=== PATIENT | female | born 1970 | race Caucasian/White ===

== ENCOUNTER → 2016-09-26 | Outpatient (CLI) | payer OTHER ==
[~2016-09-26] MED LIST: ACET650T92 PO; ASPI-390 PO; IBUP1CAP9 PO; OMEP10CA2 PO; QUET400T2 PO; ROPI4TAB3 PO; SUMA100T16 PO; TEMA30CA4 PO; VENL150C56 PO
== END | disposition home or self-care (01) ==
LOC: C.PATHSPEC 17:41
PROVIDERS: ATTEND Obstetrics & Gynecology
DX: N85.00 Endometrial hyperplasia, unspecified (principal)

== ENCOUNTER → 2016-09-26 | Outpatient (CLI) | payer OTHER | END | disposition home or self-care (01) | LOC: C.PAPS 10:02 | PROVIDERS: ATTEND Obstetrics & Gynecology | DX: N93.9 Abnormal uterine and vaginal bleeding, unspecified (principal) ==

== ENCOUNTER → 2016-10-17 | Outpatient (CLI) | payer OTHER | END | disposition home or self-care (01) | LOC: C.CPL 16:54 | PROVIDERS: ATTEND Obstetrics & Gynecology | DX: Z01.818 Encounter for other preprocedural examination (principal) ==

== ENCOUNTER → 2016-10-19 | Day surgery (SDC) | payer OTHER ==
[2016-10-04 15:32] VITALS: Ht 170.2 cm; Wt 102.3 kg
[~2016-10-19] VITALS: Ht 170.2 cm; Wt 102.3 kg
[~2016-10-19] MED LIST changes: +ATROPINE SULFATE 0.1 MG/ML 5ML SYR IV PRN; +DEXAMETHASONE SOD INJ 4 MG/ML VIAL ONE; +EpHEDrine SULFATE INJ 50 MG/ML AMP IV PRN; +FENTANYL CITRATE INJ 50 MCG/1 ML 2 ML VIAL ONE; +FLUMAZENIL 0.1 MG/1 ML 10 ML VIAL IV PRN; +HYDROmorphone INJ 2 MG/ML SYR/VIAL IV PRN; +IBUPROFEN 600 MG TAB PO PRN; +KETOROLAC TROMETHAMINE 30 MG/ML VIAL IV. PRN; +KETOROLAC TROMETHAMINE 30 MG/ML VIAL ONE; +LABETALOL HCL IV 5 MG/ML 20ML IV PRN; +LACTATED RINGER'S 1000ML 1,000 ML IV SCH; +LIDOCAINE HCL 2% 2 ML VIAL (20MG/ML) ONE; +METOCLOPRAMIDE HCL INJ 5 MG/ML 2 ML VIAL IV PRN; +MIDAZOLAM HCL 1 MG/ML 2ML VIAL ONE; +NALOXONE HCL 0.4 MG/1 ML VIAL/CARP IV PRN; +ONDANSETRON INJ 2 MG/ML 2 ML VIAL IV PRN; +ONDANSETRON INJ 2 MG/ML 2 ML VIAL ONE; +OXYCODONE/ACETAMINOPHEN 5-325 TAB PO PRN; +PROMETHAZINE HCL INJ 12.5 MG in SODIUM CHLORIDE 0.9% 50ML 50 ML IV PRN; +PROPOFOL IV EMULSION 10 MG/ML 20 ML VIAL IV ONE; +SODIUM CHLORIDE 0.9% 1000ML 1,000 ML IV SCH
--- NOTE | 2016-10-19 11:33 | History & Physical Bridge - [place] ---
H&P Re-Evaluation Bridge Note: I have examined the patient, reviewed the History & Physical and in the interval since the performance of the History & Physical I have noted the following changes of clinical significance: No changes noted
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
--- NOTE | 2016-10-19 12:52 | Discharge Instructions-SurgCtr ---
Discharge Instructions Visit Reason for Visit: Abnormal Uterine Bleeding Discharge Discharge Diagnosis / Problem: abnormal uterine bleeding, polyps Discharge Goals Goal(s): Specific goals Activity Recommendations Activity Limitations: per Instructions/Follow-up section Anesthesia . Post Anesthesia Instructions: If you have had General Anesthesia or IV Sedation: * Do not drive today. * Resume driving when surgeon permits. * Do not make important decisions or sign legal documents today. * Call surgeon for: 1. Temperature elevations greater than 101 degrees F. 2. Uncontrollable pain. 3. Excessive bleeding. 4. Persistent nausea and vomiting. 5. Medication intolerance (nausea, vomiting or rash). * For nausea and vomiting use only clear liquids such as: tea, soda, bouillon until nausea subsides, then gradually increase diet as tolerated. * If you have any concerns or questions, call your surgeon's office. If physician is unavailable and it is an emergency, call 911 or go to the nearest emergency room. . Instructions / Follow-Up Instructions / Follow-Up ACTIVITY RECOMMENDATIONS: * Avoid tampons, douching, hot tubs, pools, and intercourse until bleeding has stopped. * May shower as usual. * No strenuous activity for 24-48 hours. After 24-48 hours, you may do anything you feel like doing (driving and sports are okay). SPECIAL CARE INSTRUCTIONS: Special Diet: * Mild nausea may occur in the immediate post-operative period. * Take clear liquids such as tea, cola or bouillon until all nausea has subsided; you may then resume your normal diet. Special Care: * Light bleeding and vaginal spotting can last from a few days to 3-4 weeks. Call your doctor if bleeding becomes heavier than the heaviest part of your period. * Check your temperature twice a day for one week. If it goes above 100.4 degrees Fahrenheit (38.0 Celsius), notify your doctor. * Call your doctor's office for an appointment for 6 weeks after your surgery. FOLLOW-UP VISIT: Call your doctor's office for an appointment for 6 weeks after your surgery. Diet Recommendations Home Diet: resume previous diet Procedures Procedures Performed: Dilatation And Curettage, Hysteroscopy,Cervical Polypectomy, Endometrial Ablation with Novasure Pending Studies Studies pending at discharge: no Medical Emergencies . Who to Call and When: Medical Emergencies: If at any time you feel your situation is an emergency, please call 911 immediately. . Non-Emergent Contact Non-Emergency issues call your: Primary Care Provider . . "Provider Documentation" section prepared by Merary Hodgson.
[2016-10-19] MEDS: FENTANYL CITRATE INJ 50 MCG/1 ML 2 ML VIAL IV PRN ×4 (13:10→13:32)
[2016-10-19 14:06] VITALS: TEMP 37
--- NOTE | 2016-10-19 14:29 | Anesthesia Progress Nt - [facility] ---
Anesthesia Post Op Note Date & Time Oct 19, 2016 at 14:29 Vital Signs Pain Intensity: 7.0 Vital Signs Past 12 Hours Date Time Temp Pulse Resp B/P Pulse Ox O2 Delivery O2 Flow Rate FiO2 10/19/16 14:06 37.0 96 16 148/93 95 Room Air 10/19/16 13:55 96 12 95 10/19/16 13:55 96 12 10/19/16 13:54 37.0 10/19/16 13:53 136/88 10/19/16 13:50 100 17 95 10/19/16 13:50 101 17 10/19/16 13:49 121/77 10/19/16 13:45 95 11 95 10/19/16 13:45 95 11 10/19/16 13:43 136/90 10/19/16 13:40 98 14 96 10/19/16 13:40 98 14 10/19/16 13:38 138/88 10/19/16 13:35 95 20 10/19/16 13:35 95 20 100 10/19/16 13:33 137/89 10/19/16 13:30 92 10 100 10/19/16 13:30 93 10 10/19/16 13:28 136/89 10/19/16 13:25 95 15 10/19/16 13:25 96 15 100 10/19/16 13:23 135/89 10/19/16 13:20 91 11 10/19/16 13:20 91 11 100 10/19/16 13:18 125/90 10/19/16 13:15 91 16 100 10/19/16 13:15 92 16 10/19/16 13:13 157/101 10/19/16 13:10 95 17 100 10/19/16 13:10 95 17 10/19/16 13:08 146/100 10/19/16 13:05 92 12 100 10/19/16 13:05 92 12 10/19/16 13:03 148/97 10/19/16 13:00 102 18 10/19/16 13:00 102 18 100 10/19/16 12:58 132/80 10/19/16 12:55 106 14 10/19/16 12:55 104 14 100 10/19/16 12:53 36.2 110 18 168/108 100 Diffusion Mask 8 10/19/16 11:27 37.1 101 20 146/90 97 Room Air Notes Mental Status: alert / awake / arousable, participated in evaluation Pt Amnestic to Procedure: Yes Nausea / Vomiting: adequately controlled Pain: adequately controlled Airway Patency, RR, SpO2: stable & adequate BP & HR: stable & adequate Hydration State: stable & adequate Anesthetic Complications: no major complications apparent
[2016-10-19 14:55] VITALS: BP 156/90; PULSE 95; O2SAT 95
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
== END | disposition home or self-care (01) ==
LOC: X.SURG 10:59
PROVIDERS: ATTEND Obstetrics & Gynecology
DX: N84.0 Polyp of corpus uteri (principal); N85.00 Endometrial hyperplasia, unspecified; N93.8 Other specified abnormal uterine and vaginal bleeding; G43.109 Migraine with aura, not intractable, without status migrainosus; F41.8 Other specified anxiety disorders; Z83.42 Family history of familial hypercholesterolemia; Z82.49 Family history of ischemic heart disease and other diseases of the circulatory system; F17.200 Nicotine dependence, unspecified, uncomplicated

== ENCOUNTER 2018-01-09 17:10 | Emergency (ER) | payer OTHER ==
[~2018-01-09] VITALS: Ht 170.2 cm; Wt 104.4 kg
[~2018-01-09 17:10] MED LIST changes: -ATROPINE SULFATE 0.1 MG/ML 5ML SYR IV PRN; -DEXAMETHASONE SOD INJ 4 MG/ML VIAL ONE; -EpHEDrine SULFATE INJ 50 MG/ML AMP IV PRN; -FENTANYL CITRATE INJ 50 MCG/1 ML 2 ML VIAL ONE; -FLUMAZENIL 0.1 MG/1 ML 10 ML VIAL IV PRN; -HYDROmorphone INJ 2 MG/ML SYR/VIAL IV PRN; -IBUPROFEN 600 MG TAB PO PRN; -KETOROLAC TROMETHAMINE 30 MG/ML VIAL IV. PRN; -KETOROLAC TROMETHAMINE 30 MG/ML VIAL ONE; -LABETALOL HCL IV 5 MG/ML 20ML IV PRN; -LACTATED RINGER'S 1000ML 1,000 ML IV SCH; -LIDOCAINE HCL 2% 2 ML VIAL (20MG/ML) ONE; -METOCLOPRAMIDE HCL INJ 5 MG/ML 2 ML VIAL IV PRN; -MIDAZOLAM HCL 1 MG/ML 2ML VIAL ONE; -NALOXONE HCL 0.4 MG/1 ML VIAL/CARP IV PRN; -ONDANSETRON INJ 2 MG/ML 2 ML VIAL IV PRN; -ONDANSETRON INJ 2 MG/ML 2 ML VIAL ONE; -OXYCODONE/ACETAMINOPHEN 5-325 TAB PO PRN; -PROMETHAZINE HCL INJ 12.5 MG in SODIUM CHLORIDE 0.9% 50ML 50 ML IV PRN; -PROPOFOL IV EMULSION 10 MG/ML 20 ML VIAL IV ONE; -ROPI4TAB3 PO; -SODIUM CHLORIDE 0.9% 1000ML 1,000 ML IV SCH; -SUMA100T16 PO; -TEMA30CA4 PO
[2018-01-09 17:14] VITALS: Ht 170.2 cm; Wt 104.4 kg
[2018-01-09] MEDS ORDERED: ONDANSETRON INJ 2 MG/ML 2 ML VIAL IV STA (17:25)
[2018-01-09] MEDS ORDERED: SODIUM CHLORIDE 0.9% 1000ML 2,000 ML IV STA (17:25)
[2018-01-09] MEDS ORDERED: OPTIRAY 320 IV PRN (17:30)
[2018-01-09] MEDS: MoRPHine SULFATE 4 MG/ML 1 ML CARP\\VIAL IV PRN ×2 (17:55→18:59)
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
[2018-01-09 18:04] LABS: BASO % 0.1 %; BASO ABS # 0.01 K/uL (0-0.2); EOS % 2.2 %; EOS ABS # 0.16 K/uL (0-0.5); HEMATOCRIT 36.7 % (37-47); HEMOGLOBIN 12.5 g/dL (12.0-16.0); IG# 0.02 K/uL (0.00-0.02); LYMPH % 28.5 %; LYMPH ABS # 2.08 K/uL (1.2-3.4); MEAN CELL VOLUME 86.6 fL (80-100); MEAN CORPUSCULAR HEMOGLOBIN 29.5 pg (25-34); MEAN CORPUSCULAR HGB CONC 34.1 g/dl (32-36); MEAN PLATELET VOLUME 9.2 fL (7.4-10.4); MONO % 5.2 %; MONO ABS # 0.38 K/uL (0.11-0.59); NEUT % 63.7 %; NEUT ABS # 4.64 K/uL (1.4-6.5); PLATELET COUNT 298 K/uL (130-400); RED CELL DISTRIBUTION WIDTH SD 47.8 fL (36.4-46.3); WHITE BLOOD COUNT 7.29 K/uL (4.8-10.8)
[2018-01-09 18:40] LABS: ALBUMIN 3.3 gm/dl (3.4-5.0); CALCIUM 8.5 mg/dl (8.5-10.1); CREATININE 0.89 mg/dl (0.60-1.20); POTASSIUM 3.1 mmol/L (3.5-5.1)
[2018-01-09 18:43] LABS: TOTAL PROTEIN 7.3 gm/dl (6.4-8.2)
[2018-01-09] MEDS ORDERED: MAGNESIUM SULFATE 1GM / D5W 1 GM BAG IV STA (19:00)
--- NOTE | 2018-01-09 19:17 | DIAGNOSTIC IMAGING REPORT ---
CT ABD/PELVIS IV CONTRAST ONLY CLINICAL HISTORY: Generalized abdominal pain. Possible colitis. COMPARISON STUDY: None. TECHNIQUE: Following the IV administration of 94 mL of Optiray-320, CT scan of the abdomen and pelvis was performed from the lung bases to the proximal femurs. Images are reviewed in the axial, sagittal, and coronal planes. IV contrast was administered without complication. A dose lowering technique was utilized adhering to the principles of ALARA. CT DOSE: 1211.59 mGy.cm FINDINGS: Lower chest: The heart is normal in size and configuration, without pericardial effusion. The lung bases and pleural spaces are clear. Liver: There is hepatic steatosis. No focal hepatic masses are visualized. Gallbladder: Mildly distended. No calculi are visualized. Spleen: Borderline enlarged measuring 12.6 cm Pancreas: Unremarkable. Adrenal glands: Unremarkable. Kidneys: There is incomplete right renal rotation. No solid renal masses are visualized. There is no hydronephrosis. Bowel: There are no transition zones indicate bowel obstruction. There is no evidence of acute diverticulitis. There is fluid within the ascending transverse and descending colon. This is nonspecific but could be an indication of an enteritis. There is no evidence of acute appendicitis. There is a tiny appendicolith present. Peritoneum: There is no intraperitoneal free air or abdominal ascites. Vasculature: The abdominal aorta is normal in course and caliber. Adenopathy: None. Pelvic viscera: There is a 3 cm right ovarian cyst/follicle. Skeletal structures: No destructive osseous lesions are seen. IMPRESSION: 1. No evidence of bowel obstruction. No evidence of free air 2. No evidence of acute diverticulitis. No evidence of acute appendicitis 3. Prominent fluid within the colon. This is a nonspecific finding but could indicate an enteritis. 4. Hepatic steatosis and borderline splenomegaly 5. 3 cm right ovarian cyst/follicle Electronically signed by: Bartolo Velásquez M.D. 01/09/2018 7:16 PM Dictated Date/Time: 01/09/2018 7:10 PM
[2018-01-09 21:34] VITALS: BP 98/66; PULSE 95; TEMP 37.1; O2SAT 95
[2018-01-10] MEDS ORDERED: TEMA30CA4 PO (11:10)
[2018-01-10] MEDS ORDERED: ROPI4TAB3 PO (11:10)
[2018-01-10] MEDS ORDERED: SUMA100T16 PO (14:40)
[2018-01-10] MEDS ORDERED: OMEP40CA41 PO (18:28)
[2018-01-10] MEDS ORDERED: METH-307 PO (18:28)
[2018-01-10] MEDS ORDERED: ALPR-411 PO (18:28)
[2018-01-10] MEDS ORDERED: DICL50TA3 PO (18:28)
[2018-01-10] MEDS ORDERED: GABA-1220 PO (18:28)
[2018-01-10] MEDS ORDERED: QUET1TAB13 PO (18:28)
[2018-01-10] MEDS ORDERED: DULO60CA44 PO (18:28)
== END 2018-01-09 21:35 | disposition home or self-care (01) ==
LOC: C.EDB 17:12 → C.EDC 21:35
DX: E86.0 Dehydration (principal); R19.7 Diarrhea, unspecified; E83.42 Hypomagnesemia; F17.210 Nicotine dependence, cigarettes, uncomplicated; Z79.899 Other long term (current) drug therapy; Z91.048 Other nonmedicinal substance allergy status

== ENCOUNTER 2018-01-10 18:05 | Inpatient (IN) | payer OTHER ==
[~2018-01-10] VITALS: Ht 170.2 cm; Wt 106.3 kg
[~2018-01-10 18:05] MED LIST changes: -ACET650T92 PO; -ASPI-390 PO; -IBUP1CAP9 PO; -OMEP10CA2 PO; -QUET400T2 PO; +ROPI4TAB3 PO; +SUMA100T16 PO; +TEMA30CA4 PO; -VENL150C56 PO
[2018-01-10] MEDS ORDERED: SODIUM CHLORIDE 0.9% 1000ML 1,000 ML IV STA ×2 (18:26→18:47)
[2018-01-10] MEDS ORDERED: OMEP40CA41 PO (18:28)
[2018-01-10] MEDS ORDERED: METH-307 PO (18:28)
[2018-01-10] MEDS ORDERED: DICL50TA3 PO (18:28)
[2018-01-10] MEDS ORDERED: DULO60CA44 PO (18:28)
[2018-01-10] MEDS ORDERED: ALPR-411 PO (18:28)
[2018-01-10] MEDS ORDERED: QUET1TAB13 PO (18:28)
[2018-01-10] MEDS ORDERED: GABA-1220 PO (18:28)
[2018-01-10] MEDS ORDERED: ONDANSETRON INJ 2 MG/ML 2 ML VIAL IV STA (18:48)
[2018-01-10] MEDS ORDERED: OPTIRAY 320 IV PRN (19:15)
--- NOTE | 2018-01-10 19:20 | EMERGENCY ROOM VISIT NOTE ---
History Report prepared by Sandi: Brandon Perez Under the Supervision of: Dr. Artemio Franco M.D. First contact with patient: 18:25 Chief Complaint: DIARRHEA Stated Complaint: DIARRHEA,NAUSEA Nursing Triage Summary: was seen last night with diarrhea for the last two weeks. blood in stool since 1500 today/ nasueated History of Present Illness The patient is a 47 year old female who presents to the Emergency Room with complaints of worsening blood in her stool beginning yesterday. The patient states she was evaluated in the ED yesterday for similar symptoms. She notes she had intermittent blood in her diarrhea yesterday. She reports since then there has been more blood in her diarrhea, and she has been incontinent of her stool twice. The patient notes she has had around 15 bowel movements today, and her last bowel movement was 1.5 hours ago. She states her abdominal pain is around a 7/10 in severity. The patient reports she is also nauseous, weak, and dizzy. She notes she also has not been urinating as much as normal, and she thinks this is because she is dehydrated. The patient states she is afraid to eat or drink anything because it typically worsens her symptoms. Pt denies LOC, headache, fevers, chills, diaphoresis, visual changes, neck pain, chest pain, breathing difficulties, vomiting, back pain, melena, hematochezia, numbness, lymphadenopathy, rash, or other complaints. Review of EMR states the patient's C-Diff test was negative, and her stool culture is pending. Source of History: patient Onset: yesterday Quality: other (blood in stool) Timing: worsening Modifying Factors (Worsening): eating, drinking Associated Symptoms: + nausea, + abdominal pain, + weakness Note: Associated symptoms: incontinent of stool, dizziness, decreased urine output Review of Systems See HPI for pertinent positives and negatives. A total of ten systems were reviewed and were otherwise negative. Past Medical & Surgical Medical Problems: (1) No Known Active Medical Problems Family History Patient reports no known family medical history. Social History Smoking Status: Current Every Day Smoker Marital Status: Housing Status: lives with family Occupation Status: unemployed Current/Historical Medications Scheduled Alprazolam (Xanax), 0.5 MG PO QID Diclofenac (Voltaren), 50 MG PO TID Duloxetine Hcl (Cymbalta), 60 MG PO BID Gabapentin (Neurontin), 400 MG PO QID Methocarbamol (Robaxin), 750 MG PO HS Omeprazole (Prilosec), 40 MG PO DAILY Quetiapine Fumarate (Seroquel), 400 MG PO HS Ropinirole (Requip), 4 MG PO BID Temazepam (Restoril), 30 MG PO HS Scheduled PRN Sumatriptan Succinate (Imitrex), 100 MG PO DAILY PRN for Migraine Allergies Coded Allergies: NO KNOWN DRUG ALLERGIES (Verified Allergy, Unknown, ., 01/09/18) Adhesives (Verified Adverse Reaction, Mild, "Paper tape" -- rash, 01/09/18) Physical Exam Vital Signs Date Time Temp Pulse Resp B/P (MAP) Pulse Ox O2 Delivery O2 Flow Rate FiO2 01/10/18 21:39 99 01/10/18 21:03 95 20 123/90 99 Room Air 01/10/18 19:55 104 18 124/87 95 Room Air 01/10/18 18:19 36.7 116 20 136/85 97 Room Air Physical Exam GENERAL: Awake, alert, uncomfortable-appearing, in no distress HENT: Normocephalic, atraumatic. Oropharynx unremarkable. EYES: Normal conjunctiva. Sclera non-icteric. NECK: Supple. No nuchal rigidity. FROM. No masses. RESPIRATORY: Clear to auscultation. No wheezes. No rales. Normal respiratory effort. CARDIAC: Tachycardic rate. Normal rhythm. No murmurs. No rubs. Extremities warm and well perfused. Pulses equal. No JVD. GI: Soft, non-distended. Generally diffusely tenderness to the abdomen upon palpation, especially in the upper epigastrium and left side of the abdomen. No rebound or guarding. No masses. RECTAL: Deferred. MUSCULOSKELETAL: Atraumatic. Chest examination reveals no tenderness. The back is symmetrical on inspection without obvious abnormality. There is no CVA tenderness to palpation. No joint edema. LOWER EXTREMITIES: Calves are equal size bilaterally and non-tender. No edema. No discoloration. NEURO: Normal sensorium. No sensory or motor deficits noted. SKIN: No rash or jaundice noted. Medical Decision & Procedures ER Provider Diagnostic Interpretation: Radiology results as stated below per my review and radiologist interpretation: ABD/PELVIS IV CONTRAST ONLY CLINICAL HISTORY: 47 years-old Female presenting with diffuse abd pain, bloody stool, diarrhea. TECHNIQUE: Multidetector CT of the abdomen and pelvis was performed after the administration of intravenous contrast. IV contrast: 94 mL of Optiray 320. A dose lowering technique was used consistent with the principles of ALARA (as low as reasonably achievable). COMPARISON: 01/09/2018. CT DOSE (mGy.cm): The estimated cumulative dose is 1418.33 mGy.cm. FINDINGS: Ship Erector topogram: Unremarkable. Lung bases: Minimal basilar opacities, likely atelectasis. Mosaic attenuation could indicate small airways disease. Mild bronchial wall thickening. Normal heart size. No pericardial or pleural effusion. Liver: Normal morphology though the liver is enlarged, measuring over 24 cm in maximal sagittal dimension. Density suggestive of hepatic steatosis. No focal lesion. Patent hepatic vasculature. Biliary: No intrahepatic or extrahepatic biliary ductal dilatation. Normal gallbladder. Pancreas: Normal. Spleen: Mildly enlarged measuring 13.2 cm in maximal sagittal dimension. Adrenal glands: Normal. 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 No nephrolithiasis. No hydronephrosis. Ureters normal. Bladder: Normal. Pelvic organs: Uterus and ovaries normal. Dominant follicle noted in the right ovary. Bowel: Mild wall thickening of the cecum, ascending and transverse colon, nonspecific and can be seen in the setting of multiple etiologies chronic inflammation, obesity, and chronic steroids. There is suggestion of intramural fat deposition throughout this region. No pericolonic fat infiltration. The appendix is normal. No bowel obstruction. Peritoneal cavity: No free fluid or intraperitoneal gas. Lymph nodes: No enlarged lymph nodes in the abdomen or pelvis. Vasculature: Atherosclerosis of the normal caliber abdominal aorta. IVC patent. Abdominal wall: Nonspecific subcutaneous edema in the lumbar region Musculoskeletal: Normal. IMPRESSION: 1. No acute intra-abdominal pathology. 2. Diffuse wall thickening of the cecum through the transverse colon with intramural fat deposition may relate to chronic inflammation, obesity, chronic steroid. No convincing evidence of acute colitis. 3. Hepatomegaly and hepatic steatosis. Correlate with liver function tests to exclude steatohepatitis as a cause for abdominal pain. 4. Mild splenomegaly. This could suggest developing hypertension. 5. Dominant follicle in the right ovary. 6. Suggestion of air trapping with reactive airways disease versus bronchitis/bronchiolitis at the lung bases. Electronically signed by: Dennis Serrano M.D. 01/10/2018 8:41 PM Dictated Date/Time: 01/10/2018 8:33 PM Laboratory Results 01/10/18 19:06 Red Blood Count 3.83, Mean Corpuscular Volume 86.7, Mean Corpuscular Hemoglobin 28.2, Mean Corpuscular Hemoglobin Concent 32.5, Mean Platelet Volume 9.1, Neutrophils (%) (Auto) 58.3, Lymphocytes (%) (Auto) 33.7, Monocytes (%) (Auto) 5.8, Eosinophils (%) (Auto) 1.8, Basophils (%) (Auto) 0.2, Neutrophils # (Auto) 3.53, Lymphocytes # (Auto) 2.04, Monocytes # (Auto) 0.35, Eosinophils # (Auto) 0.11, Basophils # (Auto) 0.01 01/10/18 19:06 Test 01/10/18 19:06 01/10/18 20:17 White Blood Count 6.05 K/uL (4.8-10.8) Red Blood Count 3.83 M/uL (4.2-5.4) Hemoglobin 10.8 g/dL (12.0-16.0) Hematocrit 33.2 % (37-47) Mean Corpuscular Volume 86.7 fL (80-100) Mean Corpuscular Hemoglobin 28.2 pg (25-34) Mean Corpuscular Hemoglobin Concent 32.5 g/dl (32-36) Platelet Count 277 K/uL (130-400) Mean Platelet Volume 9.1 fL (7.4-10.4) Neutrophils (%) (Auto) 58.3 % Lymphocytes (%) (Auto) 33.7 % Monocytes (%) (Auto) 5.8 % Eosinophils (%) (Auto) 1.8 % Basophils (%) (Auto) 0.2 % Neutrophils # (Auto) 3.53 K/uL (1.4-6.5) Lymphocytes # (Auto) 2.04 K/uL (1.2-3.4) Monocytes # (Auto) 0.35 K/uL (0.11-0.59) Eosinophils # (Auto) 0.11 K/uL (0-0.5) Basophils # (Auto) 0.01 K/uL (0-0.2) RDW Standard Deviation 48.0 fL (36.4-46.3) RDW Coefficient of Variation 15.1 % (11.5-14.5) Immature Granulocyte % (Auto) 0.2 % Immature Granulocyte # (Auto) 0.01 K/uL (0.00-0.02) Erythrocyte Sedimentation Rate 41 mm/hr (0-21) Prothrombin Time 10.3 SECONDS (9.0-12.0) Prothromb Time International Ratio 1.0 (0.9-1.1) Activated Partial Thromboplast Time 25.7 SECONDS (21.0-31.0) Partial Thromboplastin Ratio 1.0 Anion Gap 9.0 mmol/L (3-11) Est Creatinine Clear Calc Drug Dose 100.5 ml/min Estimated GFR () 91.3 Estimated GFR (Non- 78.8 BUN/Creatinine Ratio 5.9 (10-20) Calcium Level 8.6 mg/dl (8.5-10.1) Magnesium Level 1.7 mg/dl (1.8-2.4) Total Bilirubin 0.2 mg/dl (0.2-1) Direct Bilirubin < 0.1 mg/dl (0-0.2) Aspartate Amino Transf (AST/SGOT) 21 U/L (15-37) Alanine Aminotransferase (ALT/SGPT) 21 U/L (12-78) Alkaline Phosphatase 111 U/L (45-117) C-Reactive Protein 4.60 mg/dl (0-0.29) Total Protein 6.4 gm/dl (6.4-8.2) Albumin 2.8 gm/dl (3.4-5.0) Lipase 208 U/L (73-393) Human Chorionic Gonadotropin, Qual NEG (NEG) Urine Color YELLOW Urine Appearance CLEAR (CLEAR) Urine pH 6.0 (4.5-7.5) Urine Specific [place] 1.011 (1.000-1.030) Urine Protein NEG (NEG) Urine Glucose (UA) TRACE (NEG) Urine Ketones NEG (NEG) Urine Occult Blood NEG (NEG) Urine Nitrite NEG (NEG) Urine Bilirubin NEG (NEG) Urine Urobilinogen NEG (NEG) Urine Leukocyte Esterase NEG (NEG) Laboratory results reviewed by me Medications Administered Medications (Trade) Dose Ordered Sig/[place] Route Start Time Stop Time Status Last Admin Dose Admin Sodium Chloride 1,000 ml @ 125 mls/hr Q8H STAT IV 01/10/18 18:26 01/11/18 02:25 01/10/18 20:59 125 MLS/HR Sodium Chloride 1,000 ml @ 999 mls/hr Q1H1M STAT IV 01/10/18 18:47 01/10/18 19:47 DC 01/10/18 19:10 999 MLS/HR Hydromorphone HCl (Dilaudid Inj) 0.5 mg Q15M PRN IV 01/10/18 19:00 01/24/18 18:59 01/10/18 20:59 0.5 MG Ondansetron HCl (Zofran Inj) 4 mg NOW STAT IV 01/10/18 18:48 01/10/18 18:52 DC 01/10/18 19:26 4 MG ED Course 1826: Ordered Sodium Chloride 1000 ml @ 125 mls/hr IV 1837: The patient was evaluated in room A04B. A complete history and physical exam was performed. 1847: Ordered Sodium Chloride 1000 ml @ 999 mls/hr IV 1848: Ordered Ondansetron HCl 4mg IV 1900: Ordered Hydromorphone HCl 0.5mg IV 2023: I reevaluated the patient and updated her of her current test results. 2103: Ordered Potassium Chloride 20meq PO 2106: I reevaluated the patient and updated her of her new test results. 2111: I discussed the patient's case with Dr. West, GI. He states the patient should be given Cipro and Flagyl, and she should have a hospitalist evaluation. He reports the patient will have a colonoscopy done tomorrow for diagnosis purposes. 2123: Ordered Metronidazole 500mg IV, Ciprofloxacin/Dextrose 400mg IV 2130: Upon reexamination, the patient was resting and asking to smoke. I discussed the test results and treatment plan with her. The patient will be evaluated for further management. 2133:I discussed the patient's case with Dr. Gilbert, [facility] Hospitalist. The patient will be evaluated for further management and care. 2134: Ordered Nicotine Polacrilex 1 piece MT, Nicotine 1 patch TD Medical Decision Prior records/ancillary studies reviewed. Triage Nursing notes reviewed and agree them. The patient's history was concerning for nausea, diarrhea, and abdominal pain. Differential diagnosis: Etiologies such as gastroenteritis, food borne illness, infections, appendicitis , diverticulitis, inflammatory bowel disease, GI bleed, biliary pathology, as well as others were entertained. Physical examination findings: As above. ER treatment provided: IV hydration IV Dilaudid IV Zofran On reassessment the patient felt better. Patient was tolerating p.o. intake. IV Cipro and IV Flagyl after consultation with gastroenterology Diagnostics interpretation by me: The labs revealed no leukocytosis on CBC. She had a mild anemia which was slightly worse than prior. Her chemistry panel was unremarkable except for mild hypokalemia. Patient is not . Imaging studies: CAT scan as above The patient was hydrated. Her symptoms are treated with Dilaudid and Zofran. She required 2 doses of Dilaudid. She had a CT scan which suggested more chronic inflammation and acute inflammation. Her stool was negative for C. difficile but her culture was still pending. GI consultation was necessary. Consultation: A consultation was placed with gastroenterology, Dr. West. Given the patient 's worsening condition with the bloody stool, low hemoglobin, and unknown diagnosis he felt having her stay in the hospital, prep for colonoscopy, procedure tomorrow, and IV treatment would be most appropriate. The patient was in agreement. A consultation was placed with the hospitalist. The case was discussed and diagnostics were reviewed. The patient was evaluated in the ER for further treatment. Medication Reconcilliation Current Medication List: was personally reviewed by me Blood Pressure Screening Patient's blood pressure: Normal blood pressure Blood pressure disposition: Did not require urgent referral Consults Time Called: 2109 Consulting Physician: GHAZAL Cooper Returned Call: 2111 I discussed the patient's case with GHAZAL Cooper. He states the patient should be given Cipro and Flagyl, and she should have a hospitalist evaluation. He reports the patient will have a colonoscopy done tomorrow for diagnosis purposes. Additional Consults: Time Called: 2131 Consulted Physician: Dr. Gilbert [facility] Hospitalist Returned Call: 2133 Additional Comments: I discussed the patient's case with Dr. Gilbert, [facility] Hospitalist. The patient will be evaluated for further management and care. Impression Primary Impression: Bloody diarrhea Additional Impressions: Generalized abdominal pain Hypokalemia Scribe Attestation The scribe's documentation has been prepared under my direction and personally reviewed by me in its entirety. I confirm that the note above accurately reflects all work, treatment, procedures, and medical decision making performed by me. Departure Information Referrals Christiano Grijalva M.D. (PCP) Patient Instructions [facility] Problem Qualifiers
[2018-01-10] MEDS: HYDROmorphone INJ 0.5 MG/0.5 ML SYR IV PRN ×3 (19:26→23:42)
[2018-01-10 19:38] LABS: BASO % 0.2 %; BASO ABS # 0.01 K/uL (0-0.2); EOS % 1.8 %; EOS ABS # 0.11 K/uL (0-0.5); HEMATOCRIT 33.2 % (37-47); HEMOGLOBIN 10.8 g/dL (12.0-16.0); IG# 0.01 K/uL (0.00-0.02); LYMPH % 33.7 %; LYMPH ABS # 2.04 K/uL (1.2-3.4); MEAN CELL VOLUME 86.7 fL (80-100); MEAN CORPUSCULAR HEMOGLOBIN 28.2 pg (25-34); MEAN CORPUSCULAR HGB CONC 32.5 g/dl (32-36); MEAN PLATELET VOLUME 9.1 fL (7.4-10.4); MONO % 5.8 %; MONO ABS # 0.35 K/uL (0.11-0.59); NEUT % 58.3 %; NEUT ABS # 3.53 K/uL (1.4-6.5); PLATELET COUNT 277 K/uL (130-400); RED CELL DISTRIBUTION WIDTH CV 15.1 % (11.5-14.5); WHITE BLOOD COUNT 6.05 K/uL (4.8-10.8)
[2018-01-10 19:47] LABS: PTT PATIENT 25.7 SECONDS (21.0-31.0)
[2018-01-10 19:59] LABS: ALBUMIN 2.8 gm/dl (3.4-5.0); ALT/SGPT 21 U/L (12-78); AST/SGOT 21 U/L (15-37); BLOOD UREA NITROGEN 5 mg/dl (7-18); CALCIUM 8.6 mg/dl (8.5-10.1); CARBON DIOXIDE 23 mmol/L (21-32); CREATININE 0.88 mg/dl (0.60-1.20); GLUCOSE 235 mg/dl (70-99); LIPASE 208 U/L (73-393); POTASSIUM 3.2 mmol/L (3.5-5.1); SODIUM 137 mmol/L (136-145)
[2018-01-10 20:02] LABS: ALKALINE PHOSPHATASE 111 U/L (45-117); TOTAL PROTEIN 6.4 gm/dl (6.4-8.2)
--- NOTE | 2018-01-10 20:42 | DIAGNOSTIC IMAGING REPORT ---
ABD/PELVIS IV CONTRAST ONLY CLINICAL HISTORY: 47 years-old Female presenting with diffuse abd pain, bloody stool, diarrhea. TECHNIQUE: Multidetector CT of the abdomen and pelvis was performed after the administration of intravenous contrast. IV contrast: 94 mL of Optiray 320. A dose lowering technique was used consistent with the principles of ALARA (as low as reasonably achievable). COMPARISON: 01/09/2018. CT DOSE (mGy.cm): The estimated cumulative dose is 1418.33 mGy.cm. FINDINGS: Epic Manager topogram: Unremarkable. Lung bases: Minimal basilar opacities, likely atelectasis. Mosaic attenuation could indicate small airways disease. Mild bronchial wall thickening. Normal heart size. No pericardial or pleural effusion. Liver: Normal morphology though the liver is enlarged, measuring over 24 cm in maximal sagittal dimension. Density suggestive of hepatic steatosis. No focal lesion. Patent hepatic vasculature. Biliary: No intrahepatic or extrahepatic biliary ductal dilatation. Normal gallbladder. Pancreas: Normal. Spleen: Mildly enlarged measuring 13.2 cm in maximal sagittal dimension. Adrenal glands: Normal. 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 No nephrolithiasis. No hydronephrosis. Ureters normal. Bladder: Normal. Pelvic organs: Uterus and ovaries normal. Dominant follicle noted in the right ovary. Bowel: Mild wall thickening of the cecum, ascending and transverse colon, nonspecific and can be seen in the setting of multiple etiologies chronic inflammation, obesity, and chronic steroids. There is suggestion of intramural fat deposition throughout this region. No pericolonic fat infiltration. The appendix is normal. No bowel obstruction. Peritoneal cavity: No free fluid or intraperitoneal gas. Lymph nodes: No enlarged lymph nodes in the abdomen or pelvis. Vasculature: Atherosclerosis of the normal caliber abdominal aorta. IVC patent. Abdominal wall: Nonspecific subcutaneous edema in the lumbar region Musculoskeletal: Normal. IMPRESSION: 1. No acute intra-abdominal pathology. 2. Diffuse wall thickening of the cecum through the transverse colon with intramural fat deposition may relate to chronic inflammation, obesity, chronic steroid. No convincing evidence of acute colitis. 3. Hepatomegaly and hepatic steatosis. Correlate with liver function tests to exclude steatohepatitis as a cause for abdominal pain. 4. Mild splenomegaly. This could suggest developing hypertension. 5. Dominant follicle in the right ovary. 6. Suggestion of air trapping with reactive airways disease versus bronchitis/bronchiolitis at the lung bases. Electronically signed by: Dennis Serrano M.D. 01/10/2018 8:41 PM Dictated Date/Time: 01/10/2018 8:33 PM
[2018-01-10] MEDS ORDERED: POTASSIUM CHLORIDE 10 MEQ TABCR PO STA (21:04)
[2018-01-10] MEDS ORDERED: METRONIDAZOLE 500MG / 100ML NSS IV STA (21:24)
[2018-01-10] MEDS ORDERED: CIPROFLOXACIN 400MG / 200ML D5W IV STA (21:24)
[2018-01-10] MEDS ORDERED: NICOTINE 14 MG/24 HR TDSY TD STA (21:35)
[2018-01-10] MEDS ORDERED: NICOTINE POLACRILEX 2 MG GUM MT STA (21:35)
[2018-01-10] MEDS ORDERED: ACETAMINOPHEN 325 MG TAB PO PRN (23:00)
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
[2018-01-10] MEDS ORDERED: GLUCOSE 10 TABS/TUBE PO PRN (23:30)
[2018-01-10] MEDS ORDERED: CARBOHYDRATES FOR HYPOGLYCEMIA PO PRN (23:30)
[2018-01-10] MEDS ORDERED: DEXTROSE 50% 50 ML SYR IV PRN (23:30)
[2018-01-10] MEDS ORDERED: GLUCAGON FOR INJ 1 MG VIAL SQ PRN (23:30)
[2018-01-10] MEDS ORDERED: GLUCOSE 40% GEL 15 GM TUBE PO PRN (23:30)
[2018-01-10] MEDS: ONDANSETRON INJ 2 MG/ML 2 ML VIAL IV PRN (23:42)
[2018-01-10 23:50] VITALS: BP 152/90; PULSE 106; TEMP 36.9; O2SAT 93
[2018-01-11] VITALS: BMI 36.7
[2018-01-11] MEDS: HYDROmorphone INJ 0.5 MG/0.5 ML SYR IV PRN (00:22)
[2018-01-11] MEDS ORDERED: DULOXETINE HCL 60 MG CAP PO ONE (00:45)
[2018-01-11] MEDS ORDERED: ROPINIROLE HCL 1 MG TAB PO ONE (00:45)
[2018-01-11] MEDS ORDERED: GABAPENTIN 400 MG CAP PO ONE (00:45)
[2018-01-11] MEDS ORDERED: ALPRAZOLAM 0.5 MG TAB PO ONE (00:45)
[2018-01-11] MEDS ORDERED: METHOCARBAMOL 750 MG TAB PO ONE (00:45)
[2018-01-11] MEDS ORDERED: INSULIN ASPART 100 UNITS/ML 3 ML PEN SC SCH ×2 (00:45→06:00)
[2018-01-11] MEDS ORDERED: QUETIAPINE FUMARATE 200 MG TAB PO ONE (00:45)
[2018-01-11] MEDS: TEMAZEPAM 15 MG CAP PO SCH ×2 (00:55→21:09)
[2018-01-11] MEDS: NSS + 20MEQ KCL 1000ML 1,000 ML IV SCH ×2 (00:58→17:53)
[2018-01-11] MEDS: MAGNESIUM SULFATE 1GM / D5W 100 ML IV SCH ×2 (00:58→02:22)
[2018-01-11] MEDS ORDERED: NURSING VERBAL MED ORDER ONE ×6 (01:15→22:00)
[2018-01-11] MEDS: INSULIN GLARGINE SOLOSTAR 100 UNITS/ML 3 ML PEN SC SCH ×3 (01:24→21:15)
[2018-01-11] MEDS: METRONIDAZOLE / NSS 500 MG in PREMIXED NSS 100 ML IV SCH ×3 (05:35→21:37)
[2018-01-11 05:44] LABS: BASO % 0.2 %; BASO ABS # 0.01 K/uL (0-0.2); EOS % 2.8 %; EOS ABS # 0.15 K/uL (0-0.5); HEMATOCRIT 31.2 % (37-47); HEMOGLOBIN 10.2 g/dL (12.0-16.0); IG# 0.01 K/uL (0.00-0.02); LYMPH % 39.1 %; LYMPH ABS # 2.11 K/uL (1.2-3.4); MEAN CELL VOLUME 87.4 fL (80-100); MEAN CORPUSCULAR HEMOGLOBIN 28.6 pg (25-34); MEAN CORPUSCULAR HGB CONC 32.7 g/dl (32-36); MEAN PLATELET VOLUME 8.8 fL (7.4-10.4); MONO % 7.2 %; MONO ABS # 0.39 K/uL (0.11-0.59); NEUT % 50.5 %; NEUT ABS # 2.72 K/uL (1.4-6.5); PLATELET COUNT 261 K/uL (130-400); RED CELL DISTRIBUTION WIDTH CV 15.2 % (11.5-14.5); RED CELL DISTRIBUTION WIDTH SD 48.8 fL (36.4-46.3); WHITE BLOOD COUNT 5.39 K/uL (4.8-10.8)
[2018-01-11 06:16] LABS: CALCIUM 8.1 mg/dl (8.5-10.1); CREATININE 0.62 mg/dl (0.60-1.20); POTASSIUM 3.3 mmol/L (3.5-5.1)
[2018-01-11 07:32] VITALS: BP 129/75; PULSE 105; TEMP 36.9; O2SAT 91
[2018-01-11] MEDS ORDERED: POTASSIUM CHLR 20 MEQ / WTR 20 MEQ in PREMIXED WATER 100 ML IV STA (08:18)
[2018-01-11] MEDS: ONDANSETRON INJ 2 MG/ML 2 ML VIAL IV PRN ×2 (08:56→15:47)
[2018-01-11] MEDS ORDERED: SUMATRIPTAN SUCC TAB 100 MG TAB PO ONE (09:15)
[2018-01-11] MEDS: POTASSIUM CHLR 10 MEQ / WTR 100 ML IV SCH ×2 (09:46→12:08)
[2018-01-11] MEDS: DULOXETINE HCL 60 MG CAP PO SCH ×2 (09:58→21:09)
[2018-01-11] MEDS: GABAPENTIN 400 MG CAP PO SCH ×4 (09:58→21:09)
[2018-01-11] MEDS: ALPRAZOLAM 0.5 MG TAB PO SCH ×4 (09:58→21:09)
[2018-01-11] MEDS: PANTOprazole SOD 40 MG TAB PO SCH (09:59)
[2018-01-11] MEDS: ROPINIROLE HCL 1 MG TAB PO SCH ×2 (10:05→21:00)
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
[2018-01-11] MEDS: CIPROFLOXACIN / D5W 400 MG in PREMIXED IN D5W 200 ML IV SCH ×2 (10:46→21:37)
[2018-01-11] MEDS: MoRPHine SULFATE 4 MG/ML 1 ML CARP\\VIAL IV PRN ×2 (11:08→15:48)
--- NOTE | 2018-01-11 12:07 | Hospitalist Progress Note ---
Hospitalist Progress Note Date of Service January 11, 2018. Subjective Pt evaluation today including: conversation w/ patient, physical exam, lab review, review of studies Voiding: no voiding problems Patient resting in bed. Diffuse abdominal pain. Diarrhea continues- noted BRBPR yesterday, none today. Denies melena. +nausea. Tolerating clear liquid diet. Patient denies any fever, chills, sweats, lightheadedness, dizziness, vision changes, CP, palpitations, edema, SOB, wheezing, cough, vomiting, urinary symptoms, melena, numbness/tingling, weakness, muscle/joint pain, anxiety/ depression, active bleeding, or new skin discoloration/changes. Medications Current Inpatient Medications Medications (Trade) Dose Ordered Sig/Kalpana Route Start Time Stop Time Status Last Admin Dose Admin Ioversol (Optiray 320) 100 ml UD PRN IV 01/10/18 19:15 01/14/18 19:14 Acetaminophen (Tylenol Tab) 650 mg Q4H PRN PO 01/10/18 23:00 02/09/18 22:59 Ondansetron HCl (Zofran Inj) 4 mg Q6H PRN IV 01/10/18 23:00 02/09/18 22:59 01/11/18 08:56 4 MG Ciprofloxacin/ Dextrose 400 mg/ Prmx 200 ml @ 100 mls/hr Q12H IV 01/11/18 10:00 01/21/18 09:59 01/11/18 10:46 100 MLS/HR Metronidazole 500 mg/Prmx 100 ml @ 100 mls/hr Q8H IV 01/11/18 06:00 01/21/18 05:59 01/11/18 05:35 100 MLS/HR Alprazolam (Xanax Tab) 0.5 mg QID PO 01/11/18 09:00 02/10/18 08:59 01/11/18 09:58 0.5 MG Duloxetine HCl (Cymbalta Cap) 60 mg BID PO 01/11/18 09:00 02/10/18 08:59 01/11/18 09:58 60 MG Gabapentin (Neurontin Cap) 400 mg QID PO 01/11/18 09:00 02/10/18 08:59 01/11/18 09:58 400 MG Methocarbamol (Robaxin Tab) 750 mg HS PO 01/11/18 21:00 02/10/18 20:59 Quetiapine Fumarate (seroQUEL TAB) 400 mg HS PO 01/11/18 21:00 02/10/18 20:59 Ropinirole HCl (Requip Tab) 4 mg BID PO 01/11/18 09:00 02/10/18 08:59 Temazepam (Restoril Cap) 30 mg HS PO 01/11/18 00:45 02/10/18 00:44 01/11/18 00:55 30 MG Pantoprazole Sodium (Protonix Tab) 40 mg QAM PO 01/11/18 09:00 02/10/18 08:59 01/11/18 09:59 40 MG Potassium Chloride/Sodium Chloride 1,000 ml @ 100 mls/hr Q10H IV 01/11/18 00:45 01/12/18 01:59 01/11/18 00:58 100 MLS/HR Insulin Glargine (Lantus Solostar Pen) 7 units BID SC 01/11/18 00:45 02/10/18 00:44 01/11/18 10:04 7 UNITS Glucose (Glucose 40% Gel) 15-30 GRAMS 15 GRAMS... UD PRN PO 01/10/18 23:30 02/09/18 23:29 Glucose (Glucose Chew Tab) 4-8 Tablets 4 Tabl... UD PRN PO 01/10/18 23:30 02/09/18 23:29 Dextrose (Dextrose 50% 50ML Syringe) 25-50ML 25ML FOR ... UD PRN IV 01/10/18 23:30 02/09/18 23:29 Glucagon (Glucagon Inj) 1 mg UD PRN SQ 01/10/18 23:30 02/09/18 23:29 Carbohydrates (Carbohydrates For Hypoglycemia) 15-30 GRAMS 15 grams if BSG 54-69... UD PRN PO 01/10/18 23:30 02/09/18 23:29 Insulin Aspart (novoLOG ASPART) SLIDING SCALE G... ACHS SC 01/11/18 12:00 02/10/18 11:59 Morphine Sulfate (MoRPHine SULFATE INJ) 1 mg Q4H PRN IV 01/11/18 10:45 01/25/18 10:44 01/11/18 11:08 1 MG Objective Vital Signs Date Time Temp Pulse Resp B/P (MAP) Pulse Ox O2 Delivery O2 Flow Rate FiO2 01/11/18 07:32 36.9 105 18 129/75 (93) 91 Room Air 01/11/18 00:00 Room Air 01/11/18 00:00 Room Air 01/10/18 23:50 36.9 106 18 152/90 (110) 93 Room Air 01/10/18 23:29 100 18 149/96 94 Room Air 01/10/18 22:30 97 18 125/89 97 Room Air 01/10/18 21:39 99 01/10/18 21:03 95 20 123/90 99 Room Air 01/10/18 19:55 104 18 124/87 95 Room Air 01/10/18 18:19 36.7 116 20 136/85 97 Room Air Physical Exam General Appearance: no apparent distress, + obese Eyes: normal inspection, PERRL ENT: hearing grossly normal, + pertinent finding (dry oral mucosa ) Neck: supple Respiratory/Chest: lungs clear, no respiratory distress, no accessory muscle use Cardiovascular: regular rate, rhythm Abdomen: normal bowel sounds, + distended, + tenderness (ttp, diffuse) Extremities: no pedal edema, no calf tenderness Neurologic/Psychiatric: alert, normal mood/affect, oriented x 3 Skin: normal color, warm/dry, no rash Laboratory Results Last 24 Hours Test 01/10/18 19:06 01/10/18 20:17 01/11/18 00:28 01/11/18 05:08 White Blood Count 6.05 K/uL 5.39 K/uL Red Blood Count 3.83 M/uL 3.57 M/uL Hemoglobin 10.8 g/dL 10.2 g/dL Hematocrit 33.2 % 31.2 % Mean Corpuscular Volume 86.7 fL 87.4 fL Mean Corpuscular Hemoglobin 28.2 pg 28.6 pg Mean Corpuscular Hemoglobin Concent 32.5 g/dl 32.7 g/dl Platelet Count 277 K/uL 261 K/uL Mean Platelet Volume 9.1 fL 8.8 fL Neutrophils (%) (Auto) 58.3 % 50.5 % Lymphocytes (%) (Auto) 33.7 % 39.1 % Monocytes (%) (Auto) 5.8 % 7.2 % Eosinophils (%) (Auto) 1.8 % 2.8 % Basophils (%) (Auto) 0.2 % 0.2 % Neutrophils # (Auto) 3.53 K/uL 2.72 K/uL Lymphocytes # (Auto) 2.04 K/uL 2.11 K/uL Monocytes # (Auto) 0.35 K/uL 0.39 K/uL Eosinophils # (Auto) 0.11 K/uL 0.15 K/uL Basophils # (Auto) 0.01 K/uL 0.01 K/uL RDW Standard Deviation 48.0 fL 48.8 fL RDW Coefficient of Variation 15.1 % 15.2 % Immature Granulocyte % (Auto) 0.2 % 0.2 % Immature Granulocyte # (Auto) 0.01 K/uL 0.01 K/uL Erythrocyte Sedimentation Rate 41 mm/hr Prothrombin Time 10.3 SECONDS Prothromb Time International Ratio 1.0 Activated Partial Thromboplast Time 25.7 SECONDS Partial Thromboplastin Ratio 1.0 Sodium Level 137 mmol/L 140 mmol/L Potassium Level 3.2 mmol/L 3.3 mmol/L Chloride Level 105 mmol/L 108 mmol/L Carbon Dioxide Level 23 mmol/L 26 mmol/L Anion Gap 9.0 mmol/L 6.0 mmol/L Blood Urea Nitrogen 5 mg/dl 3 mg/dl Creatinine 0.88 mg/dl 0.62 mg/dl Est Creatinine Clear Calc Drug Dose 100.5 ml/min 142.3 ml/min Estimated GFR () 91.3 125.3 Estimated GFR (Non- 78.8 108.1 BUN/Creatinine Ratio 5.9 5.5 Random Glucose 235 mg/dl 142 mg/dl Estimated Average Glucose 183 mg/dl Hemoglobin A1c 8.0 % Calcium Level 8.6 mg/dl 8.1 mg/dl Magnesium Level 1.7 mg/dl Total Bilirubin 0.2 mg/dl Direct Bilirubin < 0.1 mg/dl Aspartate Amino Transf (AST/SGOT) 21 U/L Alanine Aminotransferase (ALT/SGPT) 21 U/L Alkaline Phosphatase 111 U/L C-Reactive Protein 4.60 mg/dl Total Protein 6.4 gm/dl Albumin 2.8 gm/dl Lipase 208 U/L Thyroid Stimulating Hormone (TSH) 2.550 uIu/ml Human Chorionic Gonadotropin, Qual NEG Urine Color YELLOW Urine Appearance CLEAR Urine pH 6.0 Urine Specific Preemption 1.011 Urine Protein NEG Urine Glucose (UA) TRACE Urine Ketones NEG Urine Occult Blood NEG Urine Nitrite NEG Urine Bilirubin NEG Urine Urobilinogen NEG Urine Leukocyte Esterase NEG Bedside Glucose 130 mg/dl Test 01/11/18 06:01 01/11/18 09:15 Bedside Glucose 147 mg/dl Stool Occult Blood POSITIVE Assessment and Plan 47 y/o C female presenting with 2+ weeks of profuse, watery diarrhea now with blood and mucus. CT suggestive of colonic inflammation, not necessarily acute. Patient denies recent colonoscopy. Diarrhea - etiology unclear: - Admitted to med/surg - C.diff negative - Stool cultures pending - +Stool Hemoccult - Hydration w/ NSS + KCL @ 100 ml/hr - IV Cipro + Flagyl- started on 01/11 - IV Morphine PRN for pain - IV Zofran PRN for nausea - Hold on antidiarrheal agents pending infectious etiology r/o - GI consulted, appreciate recommendations- IV Cipro + Flagyl x10 days, possible colonoscopy pending stool cultures Enlarged liver noted on CT: - LFTs WNL - Encourage healthy diet and exercise - GI consulted Anemia, likely dilution vs GI bleed- STABLE: - Follow CBC - GI workup as above Hypomagnesemia: Replace w/ IV Mag- follow and replace PRN Hypokalemia: Replace w/ PO and/or IV KCL supplement- follow and replace PRN Newly diagnosed T2DM- hgbA1c 8.0%: - Started Lantus 7 u BID - BSG ACHS and ISS - personal development educator consulted Depression/, anxiety- STABLE: Continue Xanax, Seroquel, and Restoril Chronic pain- STABLE: Continue Cymbalta, Neurontin, Robaxin GERD: Protonix daily while inpatient DVT prophylaxis: Ambulation Code status: LEVEL I, FULL Dispo: From home- no discharge needs anticipated
[2018-01-11] MEDS: INSULIN ASPART 100 UNITS/ML 3 ML PEN SC SCH ×3 (13:42→21:00)
[2018-01-11 15:20] VITALS: BP 122/78; PULSE 93; TEMP 36.7; O2SAT 95
[2018-01-11 15:45] VITALS: O2SAT 95
[2018-01-11 17:05] VITALS: BMI 36.7
[2018-01-11] MEDS ORDERED: LAVAGE SOLUTION 4000ML PO SCH (18:00)
[2018-01-11] MEDS: QUETIAPINE FUMARATE 200 MG TAB PO SCH (21:09)
[2018-01-11] MEDS: METHOCARBAMOL 750 MG TAB PO SCH (21:09)
[2018-01-11] MEDS ORDERED: MAGNESIUM CITRATE 296 ML/BTL PO ONE (21:15)
[2018-01-11 23:05] VITALS: BP 122/65; PULSE 105; TEMP 37; O2SAT 91
[2018-01-12 05:28] LABS: CALCIUM 7.8 mg/dl (8.5-10.1); CREATININE 0.76 mg/dl (0.60-1.20); POTASSIUM 3.5 mmol/L (3.5-5.1)
[2018-01-12] MEDS: ONDANSETRON INJ 2 MG/ML 2 ML VIAL IV PRN ×2 (05:36→16:32)
[2018-01-12] MEDS: METRONIDAZOLE / NSS 500 MG in PREMIXED NSS 100 ML IV SCH ×3 (05:37→21:36)
[2018-01-12] MEDS: SUMATRIPTAN SUCC TAB 100 MG TAB PO PRN ×2 (05:37→18:49)
[2018-01-12 07:17] VITALS: BP_SYST 156; BP_SYST 162; BP_DIAS 100; BP_DIAS 97; PULSE 98; TEMP 36.9; O2SAT 95
[2018-01-12] MEDS: MoRPHine SULFATE 4 MG/ML 1 ML CARP\\VIAL IV PRN ×2 (07:57→16:12)
[2018-01-12] MEDS ORDERED: HydrALAZINE HCL 20 MG/ML VIAL IV. PRN (08:00)
[2018-01-12] MEDS ORDERED: MAGNESIUM CITRATE 296 ML/BTL PO SCH (08:00)
[2018-01-12 08:38] VITALS: BP 142/86
[2018-01-12] MEDS: ROPINIROLE HCL 1 MG TAB PO SCH ×2 (09:00→20:26)
[2018-01-12] MEDS: INSULIN ASPART 100 UNITS/ML 3 ML PEN SC SCH ×4 (09:13→20:25)
[2018-01-12] MEDS: INSULIN GLARGINE SOLOSTAR 100 UNITS/ML 3 ML PEN SC SCH ×2 (09:15→20:25)
--- NOTE | 2018-01-12 09:38 | DIAGNOSTIC IMAGING REPORT ---
[facility] CLINICAL HISTORY: 47 years-old Female presenting with acute abd pain, to rule out perforation. TECHNIQUE: Single supine view of the abdomen was obtained. COMPARISON: CT from 01/10/2018. FINDINGS: The liver shadow is enlarged. Nonobstructive bowel gas pattern. No gross pneumoperitoneum. Allowing for bowel gas and stool, no calcifications to suggest nephrolithiasis. Osseous structures normal. Lung bases clear. IMPRESSION: 1. No gross pneumoperitoneum allowing for supine technique. If there is continuing clinical concern for perforation, an upright radiograph should be obtained, which is more sensitive for free air. 2. Hepatomegaly. Electronically signed by: Dennis Serrano M.D. 01/12/2018 9:37 AM Dictated Date/Time: 01/12/2018 9:35 AM
[2018-01-12] MEDS ORDERED: OPTIRAY 320 IV PRN (10:00)
[2018-01-12] MEDS ORDERED: KETOROLAC TROMETHAMINE 30 MG/ML VIAL IV ONE (10:00)
[2018-01-12] MEDS: GABAPENTIN 400 MG CAP PO SCH ×4 (10:03→20:28)
[2018-01-12] MEDS: DULOXETINE HCL 60 MG CAP PO SCH ×2 (10:03→20:27)
[2018-01-12] MEDS: PANTOprazole SOD 40 MG TAB PO SCH (10:03)
[2018-01-12 10:18] LABS: LIPASE 125 U/L (73-393)
--- NOTE | 2018-01-12 11:09 | DIAGNOSTIC IMAGING REPORT ---
ERECT ABDOMEN 2 VIEWS CLINICAL HISTORY: Acute abdominal pain. Evaluate for perforation. COMPARISON STUDY: 01/12/2018 FINDINGS: 2 views the abdomen are provided for interpretation. There are scattered colonic air-fluid levels. No free intraperitoneal air is visualized. IMPRESSION: Scattered air-fluid levels. No evidence of free intraperitoneal air. Electronically signed by: Bartolo Velásquez M.D. 01/12/2018 11:08 AM Dictated Date/Time: 01/12/2018 11:07 AM
--- NOTE | 2018-01-12 11:13 | DIAGNOSTIC IMAGING REPORT ---
(CHEST FOR PE) ANGIO WITH CLINICAL HISTORY: 47 years-old Female presenting with ^elevated d-dimer, clinical concern for pulmonary embolus. TECHNIQUE: Multidetector CT angiography of the chest was performed after administration of intravenous contrast. 3-D volumetric and/or maximum intensity projection (MIP) images were subsequently reconstructed for review. IV contrast: 93 mL of Optiray 320. A dose lowering technique was used consistent with the principles of ALARA (as low as reasonably achievable). COMPARISON: None. CT DOSE (mGy.cm): The estimated cumulative dose is 683.73 mGy.cm. FINDINGS: Shank Faker topogram: Unremarkable. Pulmonary vasculature: The study is adequate for assessment of the pulmonary vascular tree. No filling defect within the pulmonary arteries to suggest embolus. Main pulmonary artery is not enlarged. No flattening of the interventricular septum. No intracardiac filling defect. No reflux of contrast into the hepatic veins. Remaining chest: On soft tissue windows, normal thyroid and thoracic inlet. No axillary, supraclavicular, hilar, or mediastinal lymphadenopathy. Normal aorta. Normal heart size. No pericardial or pleural effusion. Hepatic steatosis. On lung windows, minimal dependent changes likely atelectasis. No other focal nodule or infiltrate. Mosaic attenuation could suggest small airways disease. Mild bronchial wall thickening. Central airways patent. On bone windows, degenerative changes of the spine. IMPRESSION: 1. No evidence of pulmonary embolus. 2. Mild bronchial wall thickening and mosaic attenuation could suggest reactive airways disease or bronchitis/bronchiolitis. Electronically signed by: Dennis Serrano M.D. 01/12/2018 11:12 AM Dictated Date/Time: 01/12/2018 11:03 AM
[2018-01-12 12:36] VITALS: Ht 170.2 cm; Wt 106.3 kg
--- NOTE | 2018-01-12 12:45 | Hospitalist Progress Note ---
Hospitalist Progress Note Date of Service January 12, 2018. Subjective Pt evaluation today including: conversation w/ patient, physical exam, lab review, review of studies, review of inpatient medication list Voiding: no voiding problems Patient resting in bed. +diffuse abdominal pain. +diarrhea. NPO for EGD and colonoscopy today. Patient denies any fever, chills, sweats, lightheadedness, dizziness, vision changes, CP, palpitations, edema, SOB, wheezing, cough, nausea, vomiting, urinary symptoms, melena, numbness/tingling, weakness, muscle/joint pain, anxiety/depression, active bleeding, or new skin discoloration/changes. Medications Current Inpatient Medications Medications (Trade) Dose Ordered Sig/Kalpana Route Start Time Stop Time Status Last Admin Dose Admin Ioversol (Optiray 320) 100 ml UD PRN IV 01/10/18 19:15 01/14/18 19:14 Acetaminophen (Tylenol Tab) 650 mg Q4H PRN PO 01/10/18 23:00 02/09/18 22:59 Ondansetron HCl (Zofran Inj) 4 mg Q6H PRN IV 01/10/18 23:00 02/09/18 22:59 01/12/18 05:36 4 MG Ciprofloxacin/ Dextrose 400 mg/ Prmx 200 ml @ 100 mls/hr Q12H IV 01/11/18 10:00 01/21/18 09:59 01/11/18 21:37 100 MLS/HR Metronidazole 500 mg/Prmx 100 ml @ 100 mls/hr Q8H IV 01/11/18 06:00 01/21/18 05:59 01/12/18 05:37 100 MLS/HR Alprazolam (Xanax Tab) 0.5 mg QID PO 01/11/18 09:00 02/10/18 08:59 01/11/18 21:09 0.5 MG Duloxetine HCl (Cymbalta Cap) 60 mg BID PO 01/11/18 09:00 02/10/18 08:59 01/12/18 10:03 60 MG Gabapentin (Neurontin Cap) 400 mg QID PO 01/11/18 09:00 02/10/18 08:59 01/12/18 10:03 400 MG Methocarbamol (Robaxin Tab) 750 mg HS PO 01/11/18 21:00 02/10/18 20:59 01/11/18 21:09 750 MG Quetiapine Fumarate (seroQUEL TAB) 400 mg HS PO 01/11/18 21:00 02/10/18 20:59 01/11/18 21:09 400 MG Ropinirole HCl (Requip Tab) 4 mg BID PO 01/11/18 09:00 02/10/18 08:59 Temazepam (Restoril Cap) 30 mg HS PO 01/11/18 00:45 02/10/18 00:44 01/11/18 21:09 30 MG Pantoprazole Sodium (Protonix Tab) 40 mg QAM PO 01/11/18 09:00 02/10/18 08:59 01/12/18 10:03 40 MG Insulin Glargine (Lantus Solostar Pen) 7 units BID SC 01/11/18 00:45 02/10/18 00:44 01/12/18 09:15 7 UNITS Glucose (Glucose 40% Gel) 15-30 GRAMS 15 GRAMS... UD PRN PO 01/10/18 23:30 02/09/18 23:29 Glucose (Glucose Chew Tab) 4-8 Tablets 4 Tabl... UD PRN PO 01/10/18 23:30 02/09/18 23:29 Dextrose (Dextrose 50% 50ML Syringe) 25-50ML 25ML FOR ... UD PRN IV 01/10/18 23:30 02/09/18 23:29 Glucagon (Glucagon Inj) 1 mg UD PRN SQ 01/10/18 23:30 02/09/18 23:29 Carbohydrates (Carbohydrates For Hypoglycemia) 15-30 GRAMS 15 grams if BSG 54-69... UD PRN PO 01/10/18 23:30 02/09/18 23:29 Insulin Aspart (novoLOG ASPART) SLIDING SCALE G... ACHS SC 01/11/18 12:00 02/10/18 11:59 01/12/18 09:13 3 UNITS Morphine Sulfate (MoRPHine SULFATE INJ) 1 mg Q4H PRN IV 01/11/18 10:45 01/25/18 10:44 01/12/18 07:57 1 MG Sumatriptan Succinate (Imitrex Tab) 100 mg DAILY PRN PO 01/12/18 04:45 02/11/18 04:44 01/12/18 05:37 100 MG Hydralazine HCl (HydrALAZINE INJ) 20 mg Q6 PRN IV. 01/12/18 08:00 02/11/18 07:59 Ioversol (Optiray 320) 100 ml UD PRN IV 01/12/18 10:00 01/16/18 09:59 Objective Vital Signs Date Time Temp Pulse Resp B/P (MAP) Pulse Ox O2 Delivery O2 Flow Rate FiO2 01/12/18 08:38 142/86 (104) 01/12/18 07:17 36.9 98 18 156/100 (118) 95 Room Air 162/97 (118) 01/12/18 00:00 Room Air 01/11/18 23:05 37.0 105 18 122/65 (84) 91 Room Air 01/11/18 15:45 95 Room Air 01/11/18 15:20 36.7 93 16 122/78 (93) 95 Room Air Physical Exam General Appearance: no apparent distress, + obese Eyes: normal inspection, PERRL ENT: hearing grossly normal Neck: supple Respiratory/Chest: lungs clear, no respiratory distress, no accessory muscle use Cardiovascular: regular rate, rhythm Abdomen: normal bowel sounds, + distended, + guarding, + tenderness (diffuse ttp, severe ) Extremities: no pedal edema, no calf tenderness Neurologic/Psychiatric: alert, normal mood/affect, oriented x 3 Skin: normal color, warm/dry, no rash Laboratory Results Last 24 Hours Test 01/11/18 12:03 01/11/18 17:09 01/11/18 20:45 01/12/18 04:55 Bedside Glucose 222 mg/dl 127 mg/dl 119 mg/dl Sodium Level 141 mmol/L Potassium Level 3.5 mmol/L Chloride Level 109 mmol/L Carbon Dioxide Level 27 mmol/L Anion Gap 5.0 mmol/L Blood Urea Nitrogen 2 mg/dl Creatinine 0.76 mg/dl Est Creatinine Clear Calc Drug Dose 116.1 ml/min Estimated GFR () 109.0 Estimated GFR (Non- 94.1 BUN/Creatinine Ratio 2.5 Random Glucose 132 mg/dl Calcium Level 7.8 mg/dl Magnesium Level 2.1 mg/dl Test 01/12/18 08:14 01/12/18 09:04 01/12/18 09:12 Bedside Glucose 220 mg/dl Creatine Kinase MB Ratio D-Dimer 690 ug/L FEU Creatine Kinase MB 1.0 ng/ml Troponin I < 0.015 ng/ml Amylase Level 19 U/L Lipase 125 U/L Assessment and Plan 47 y/o C female presenting with 2+ weeks of profuse, watery diarrhea now with blood and mucus. CT suggestive of colonic inflammation, not necessarily acute. Patient denies recent colonoscopy. Diarrhea - etiology unclear: - Admitted to med/surg - Abominal x-ray w/out acute findings - C.diff negative; Stool cultures- negative - +Stool Hemoccult - Amylase, Lipase WNL - Hydrate w/ NSS + 20 mEq KCL @ 100 ml/hr - IV Cipro + Flagyl- started on 01/11 - IV Morphine PRN, Tylenol PRN for pain - IV Zofran PRN for nausea - GI consulted, appreciate recommendations- IV Cipro + Flagyl x10 days, colonoscopy and EGD today Enlarged liver noted on CT: - LFTs WNL - Encourage healthy diet and exercise - GI consulted Elevated d-dimer: CTA negative for PE Anemia, likely dilution vs GI bleed- STABLE: - Follow CBC - GI workup as above Hypomagnesemia- RESOLVED: Replaced w/ IV Mag- follow and replace PRN Hypokalemia- RESOLVED: Replaced w/ PO and/or IV KCL supplement- follow and replace PRN Newly diagnosed T2DM- hgbA1c 8.0%: - Started Lantus 7 u BID - BSG ACHS and ISS - security associate consulted Depression/, anxiety- STABLE: Continue Xanax, Seroquel, and Restoril Chronic pain- STABLE: Continue Cymbalta, Neurontin, Robaxin GERD: Protonix daily while inpatient DVT prophylaxis: Ambulation Code status: LEVEL I, FULL Dispo: From home- no discharge needs anticipated
[2018-01-12] MEDS: CIPROFLOXACIN / D5W 400 MG in PREMIXED IN D5W 200 ML IV SCH ×2 (12:59→22:50)
[2018-01-12] MEDS: NSS + 20MEQ KCL 1000ML 1,000 ML IV SCH ×2 (12:59→22:19)
[2018-01-12] MEDS: ALPRAZOLAM 0.5 MG TAB PO SCH ×4 (13:00→20:26)
--- NOTE | 2018-01-12 13:37 | Gastroenterology Progress Note ---
Progress Note Date of Service: January 12, 2018 Subjective Pt evaluation today including: conversation w/ patient, physical exam, chart review, lab review, review of studies, review of inpatient medication list Continued epigastric abdominal pain, 4/10 in intensity, non-radiating without alleviating factors. No Overt GI bleeding overnight. Medications Current Inpatient Medications Medications (Trade) Dose Ordered Sig/Kalpana Route Start Time Stop Time Status Last Admin Dose Admin Ioversol (Optiray 320) 100 ml UD PRN IV 01/10/18 19:15 01/14/18 19:14 Acetaminophen (Tylenol Tab) 650 mg Q4H PRN PO 01/10/18 23:00 02/09/18 22:59 Ondansetron HCl (Zofran Inj) 4 mg Q6H PRN IV 01/10/18 23:00 02/09/18 22:59 01/12/18 05:36 4 MG Ciprofloxacin/ Dextrose 400 mg/ Prmx 200 ml @ 100 mls/hr Q12H IV 01/11/18 10:00 01/21/18 09:59 01/12/18 12:59 100 MLS/HR Metronidazole 500 mg/Prmx 100 ml @ 100 mls/hr Q8H IV 01/11/18 06:00 01/21/18 05:59 01/12/18 05:37 100 MLS/HR Alprazolam (Xanax Tab) 0.5 mg QID PO 01/11/18 09:00 02/10/18 08:59 01/11/18 21:09 0.5 MG Duloxetine HCl (Cymbalta Cap) 60 mg BID PO 01/11/18 09:00 02/10/18 08:59 01/12/18 10:03 60 MG Gabapentin (Neurontin Cap) 400 mg QID PO 01/11/18 09:00 02/10/18 08:59 01/12/18 10:03 400 MG Methocarbamol (Robaxin Tab) 750 mg HS PO 01/11/18 21:00 02/10/18 20:59 01/11/18 21:09 750 MG Quetiapine Fumarate (seroQUEL TAB) 400 mg HS PO 01/11/18 21:00 02/10/18 20:59 01/11/18 21:09 400 MG Ropinirole HCl (Requip Tab) 4 mg BID PO 01/11/18 09:00 02/10/18 08:59 Temazepam (Restoril Cap) 30 mg HS PO 01/11/18 00:45 02/10/18 00:44 01/11/18 21:09 30 MG Pantoprazole Sodium (Protonix Tab) 40 mg QAM PO 01/11/18 09:00 02/10/18 08:59 01/12/18 10:03 40 MG Insulin Glargine (Lantus Solostar Pen) 7 units BID SC 01/11/18 00:45 02/10/18 00:44 01/12/18 09:15 7 UNITS Glucose (Glucose 40% Gel) 15-30 GRAMS 15 GRAMS... UD PRN PO 01/10/18 23:30 02/09/18 23:29 Glucose (Glucose Chew Tab) 4-8 Tablets 4 Tabl... UD PRN PO 01/10/18 23:30 02/09/18 23:29 Dextrose (Dextrose 50% 50ML Syringe) 25-50ML 25ML FOR ... UD PRN IV 01/10/18 23:30 02/09/18 23:29 Glucagon (Glucagon Inj) 1 mg UD PRN SQ 01/10/18 23:30 02/09/18 23:29 Carbohydrates (Carbohydrates For Hypoglycemia) 15-30 GRAMS 15 grams if BSG 54-69... UD PRN PO 01/10/18 23:30 02/09/18 23:29 Insulin Aspart (novoLOG ASPART) SLIDING SCALE G... ACHS SC 01/11/18 12:00 02/10/18 11:59 01/12/18 09:13 3 UNITS Morphine Sulfate (MoRPHine SULFATE INJ) 1 mg Q4H PRN IV 01/11/18 10:45 01/25/18 10:44 01/12/18 07:57 1 MG Sumatriptan Succinate (Imitrex Tab) 100 mg DAILY PRN PO 01/12/18 04:45 02/11/18 04:44 01/12/18 05:37 100 MG Hydralazine HCl (HydrALAZINE INJ) 20 mg Q6 PRN IV. 01/12/18 08:00 02/11/18 07:59 Ioversol (Optiray 320) 100 ml UD PRN IV 01/12/18 10:00 01/16/18 09:59 Potassium Chloride/Sodium Chloride 1,000 ml @ 100 mls/hr Q10H IV 01/12/18 13:00 02/11/18 12:59 01/12/18 12:59 100 MLS/HR Objective Vital Signs Date Time Temp Pulse Resp B/P (MAP) Pulse Ox O2 Delivery O2 Flow Rate FiO2 01/12/18 13:21 36.8 95 20 158/95 (116) 20 Room Air 01/12/18 08:38 142/86 (104) 01/12/18 07:17 36.9 98 18 156/100 (118) 95 Room Air 162/97 (118) 01/12/18 00:00 Room Air 01/11/18 23:05 37.0 105 18 122/65 (84) 91 Room Air 01/11/18 15:45 95 Room Air 01/11/18 15:20 36.7 93 16 122/78 (93) 95 Room Air Physical Exam General Appearance: no apparent distress, + obese Respiratory/Chest: lungs clear Cardiovascular: regular rate, rhythm Abdomen: soft, + tenderness (RUQ and LUQ) Laboratory Results Last 24 Hours Test 01/11/18 17:09 01/11/18 20:45 01/12/18 04:55 01/12/18 08:14 Bedside Glucose 127 mg/dl 119 mg/dl 220 mg/dl Sodium Level 141 mmol/L Potassium Level 3.5 mmol/L Chloride Level 109 mmol/L Carbon Dioxide Level 27 mmol/L Anion Gap 5.0 mmol/L Blood Urea Nitrogen 2 mg/dl Creatinine 0.76 mg/dl Est Creatinine Clear Calc Drug Dose 116.1 ml/min Estimated GFR () 109.0 Estimated GFR (Non- 94.1 BUN/Creatinine Ratio 2.5 Random Glucose 132 mg/dl Calcium Level 7.8 mg/dl Magnesium Level 2.1 mg/dl Test 01/12/18 09:04 01/12/18 09:12 Creatine Kinase MB Ratio D-Dimer 690 ug/L FEU Creatine Kinase MB 1.0 ng/ml Troponin I < 0.015 ng/ml Amylase Level 19 U/L Lipase 125 U/L Assessment and Plan Assessment: 47 yo CF with abdominal pain, hematochezia and abnormal CT imaging for EGD and colonoscopy today. Plan: Proceed with EGD and Colonoscopy.
[2018-01-12] MEDS ORDERED: PROPOFOL IV EMULSION 10 MG/ML 20 ML VIAL ONE (15:18)
[2018-01-12] MEDS ORDERED: LIDOCAINE HCL 2% 2 ML VIAL (20MG/ML) ONE (15:18)
--- NOTE | 2018-01-12 15:21 | GI REPORT ---
Patient Name: Tamara Ramon Procedure Date: 01/12/2018 2:10 PM Date of : 1970 Admit Type: Inpatient Age: 47 Gender: Female Attending MD: Bhaskar Thompson DO Procedure: Upper GI endoscopy Providers: Bhaskar Thompson DO Referring MD: Julianna Gilbert DO Indications: Generalized abdominal pain, Hematochezia, Abnormal CT of the GI tract Medicines: Monitored Anesthesia Care Complications: No immediate complications. Estimated Blood Loss: Estimated blood loss: none. Procedure: Pre-Anesthesia Assessment: - Prior to the procedure, a History and Physical was performed, and patient medications and allergies were reviewed. The patient's tolerance of previous anesthesia was also reviewed. The risks and benefits of the procedure and the sedation options and risks were discussed with the patient. All questions were answered, and informed consent was obtained. Prior Anticoagulants: The patient has taken no previous anticoagulant or antiplatelet agents. ASA Grade Assessment: III - A patient with severe systemic disease. After reviewing the risks and benefits, the patient was deemed in satisfactory condition to undergo the procedure. After obtaining informed consent, the endoscope was passed under direct vision. Throughout the procedure, the patient's blood pressure, pulse, and oxygen saturations were monitored continuously. The Scope was introduced through the mouth, and advanced to the second part of duodenum. The upper GI endoscopy was accomplished without difficulty. The patient tolerated the procedure well. Findings: The esophagus was normal. The stomach was normal. The examined duodenum was normal. Impression: - Normal esophagus. - Normal stomach. - Normal examined duodenum. - No specimens collected. Recommendation: - Return patient to [facility] for [facility] care. - Advance diet as tolerated. - Continue present medications. Bhaskar Thompson DO 01/12/2018 3:21:03 PM This report has been signed electronically. Note Initiated On: 01/12/2018 2:10 PM Number of Addenda: 0 I attest to the content of the Intraoperative Record and orders documented therein, exceptions below {[id number]}
--- NOTE | 2018-01-12 15:27 | GI REPORT ---
Patient Name: Tamara Ramon Procedure Date: 01/12/2018 2:11 PM Date of : 1970 Admit Type: Inpatient Age: 47 Gender: Female Attending MD: Bhaskar Thompson DO Procedure: Colonoscopy Providers: Bhaskar Thompson DO Referring MD: Julianna Gilbert Indications: Diarrhea, Hematochezia, Abnormal CT of the GI tract Medicines: Monitored Anesthesia Care Complications: No immediate complications. Estimated Blood Loss: Estimated blood loss: none. Procedure: Pre-Anesthesia Assessment: - Prior to the procedure, a History and Physical was performed, and patient medications and allergies were reviewed. The patient's tolerance of previous anesthesia was also reviewed. The risks and benefits of the procedure and the sedation options and risks were discussed with the patient. All questions were answered, and informed consent was obtained. Prior Anticoagulants: The patient has taken no previous anticoagulant or antiplatelet agents. ASA Grade Assessment: III - A patient with severe systemic disease. After reviewing the risks and benefits, the patient was deemed in satisfactory condition to undergo the procedure. After I obtained informed consent, the scope was passed under direct vision. Throughout the procedure, the patient's blood pressure, pulse, and oxygen saturations were monitored continuously. The Scope was introduced through the anus and advanced to the terminal ileum. The colonoscopy was performed without difficulty. The patient tolerated the procedure well. The quality of the bowel preparation was good. The terminal ileum, ileocecal valve, appendiceal orifice, and rectum were photographed. Findings: The perianal and digital rectal examinations were normal. A segmental area of moderately erythematous and lqvteaxl-oavzupg-dvgidpiyr mucosa was found in the ascending colon. Biopsies were taken with a cold forceps for histology. Several random biopsies were obtained with cold forceps for histology in the rectum, in the sigmoid colon, in the descending colon and in the transverse colon. Non-bleeding internal hemorrhoids were found during retroflexion. The hemorrhoids were small. Impression: - Erythematous and mcbxdfii-wuucfsn-vrviforwi mucosa in the ascending colon. Biopsied. - Non-bleeding internal hemorrhoids. - Several random biopsies were obtained in the rectum, in the sigmoid colon, in the descending colon and in the transverse colon. Recommendation: - Return patient to [facility] for [facility] care. - Advance diet as tolerated. - Await pathology results. Bhaskar Thompson DO 01/12/2018 3:26:23 PM This report has been signed electronically. Note Initiated On: 01/12/2018 2:11 PM Number of Addenda: 0 I attest to the content of the Intraoperative Record and orders documented therein, exceptions below {[id number]}
--- NOTE | 2018-01-12 15:30 | Anesthesiology Progress Note ---
Anesthesia Post Op Note Date & Time January 12, 2018 at 15:30 Vital Signs Pain Intensity: 0.0 Vital Signs Past 12 Hours Date Time Temp Pulse Resp B/P (MAP) Pulse Ox O2 Delivery O2 Flow Rate FiO2 01/12/18 15:22 36.4 95 20 123/85 (98) 96 Room Air 01/12/18 13:21 36.8 95 20 158/95 (116) 20 Room Air 01/12/18 08:38 142/86 (104) 01/12/18 07:17 36.9 98 18 156/100 (118) 95 Room Air 162/97 (118) Notes Mental Status: alert / awake / arousable, participated in evaluation Pt Amnestic to Procedure: Yes Nausea / Vomiting: adequately controlled Pain: adequately controlled Airway Patency, RR, SpO2: stable & adequate BP & HR: stable & adequate Hydration State: stable & adequate Anesthetic Complications: no major complications apparent
[2018-01-12 16:34] VITALS: BP 137/83; PULSE 72; TEMP 36.6; O2SAT 94
[2018-01-12] MEDS ORDERED: KETOROLAC TROMETHAMINE 30 MG/ML VIAL IV STA (19:11)
[2018-01-12 19:19] VITALS: BP 137/84; PULSE 94; TEMP 36.8; O2SAT 97
[2018-01-12] MEDS: TEMAZEPAM 15 MG CAP PO SCH (20:25)
[2018-01-12] MEDS: METHOCARBAMOL 750 MG TAB PO SCH (20:28)
[2018-01-12] MEDS: QUETIAPINE FUMARATE 200 MG TAB PO SCH (20:28)
[2018-01-12 23:13] VITALS: BP 106/70; PULSE 89; TEMP 36.5; O2SAT 91
[2018-01-13 03:23] VITALS: BP 138/82; PULSE 83; TEMP 36.5; O2SAT 90
[2018-01-13] MEDS: METRONIDAZOLE / NSS 500 MG in PREMIXED NSS 100 ML IV SCH (05:35)
[2018-01-13] MEDS: SUMATRIPTAN SUCC TAB 100 MG TAB PO PRN (05:38)
[2018-01-13 06:50] LABS: HEMOGLOBIN 10.1 g/dL (12.0-16.0); MEAN CELL VOLUME 87.6 fL (80-100); MEAN CORPUSCULAR HEMOGLOBIN 28.5 pg (25-34); MEAN CORPUSCULAR HGB CONC 32.6 g/dl (32-36); MEAN PLATELET VOLUME 8.8 fL (7.4-10.4); PLATELET COUNT 265 K/uL (130-400); RED CELL DISTRIBUTION WIDTH CV 15.2 % (11.5-14.5); WHITE BLOOD COUNT 4.35 K/uL (4.8-10.8)
[2018-01-13 07:04] VITALS: BP 155/94; PULSE 94; TEMP 36.7; O2SAT 94
[2018-01-13 07:11] LABS: CALCIUM 7.7 mg/dl (8.5-10.1); CREATININE 0.67 mg/dl (0.60-1.20); POTASSIUM 3.4 mmol/L (3.5-5.1)
[2018-01-13] MEDS ORDERED: INSDGIPEN SC ×2 (08:27→09:26)
[2018-01-13] MEDS ORDERED: CPR500 PO (08:27)
[2018-01-13] MEDS ORDERED: MTR500 PO (08:27)
[2018-01-13] MEDS ORDERED: POTASSIUM CHLORIDE 10 MEQ TABCR PO ONE (08:30)
--- NOTE | 2018-01-13 08:34 | Discharge Instructions ---
Discharge Instructions Date of Service January 13, 2018. Admission Reason for Admission: Colitis Discharge Discharge Diagnosis / Problem: diarrhea etiology unknown Discharge Goals Goal(s): Decrease discomfort, Improve function, Increase independence, Improve disease control, Improve nutritional status, Learn about illness, Diagnostic testing, Therapeutic intervention, Prevent Disease Progression, Specific goals Activity Recommendations Activity Limitations: resume your previous activity . Instructions / Follow-Up Instructions / Follow-Up you have Diarrhea - etiology unclear: colonoscopy and EGD were done per report , EGD shows: : - Normal esophagus. - Normal stomach. - Normal examined duodenum. - No specimens collected. per report, colonoscope shows:- Erythematous and nzfisnrf-jrhsgjc-ebtmezufh mucosa in the ascending colon. Biopsied. - Non-bleeding internal hemorrhoids. - Several random biopsies were obtained in the rectum, in the sigmoid colon, in the descending colon and in the transverse colon. continue Cipro + Flagyl x for total 10 days, you need to follow up with Dr. Thompson , include for final pathology results. you ahve enlarged liver noted on CT: Liver function test was normal, encouraged to follow-up with PCP and GI you have Newly diagnosed T2DM- hgbA1c 8.0%, Started Lantus 7 uit BID in hospital, will recommend 7 unit HS for now, you need to follow up with pcp for further care.. you need to f/u as OP w/ Dr Grijalva @ [facility]- you agrees to call for appt, Encourage eliminating sweet drinks, call pcp if Blood glucose >400, or less than 70 below is more advice from community health educator: Monitoring Blood Glucose Comment * Recommend 2x/d at varying times just to see what results are Blood Glucose Goal * Before Meals 70-110 * After Meals Less than 140 Blood Glucose Goal Comment * Share results with your Dr When to Call Provider Comment * Blood sugars consistently above these limits Medication Comment * Discuss w/ your Dr if you may need pills for diabetes Diet Instructions * Decrease Portion Sizes * Reduce Sweetened Drinks Diet Instruction Comment * Try eliminating (or cutting sweet drink consumption) severely Activity Level Comment: * Try to find something you can do for activity- this will help blood sugars Prescriptions Needed * Strips and Lancets Strips/Lancets Brand Name * One Touch Verio strips & Delica lancets for 2x/d monitoring for now (Rx was enclosed upon discharge) - you need to follow up with your primary care physician in 1 week, - take medication as instructed, never overdose or any misuse, or take with alcohol, because misuse of medicine may cause organ damage or , call me , or your primary care physician if have questions of discharge medicaitons. - call your primary care physician, or go to local emergency room if has any fever/chill, chest pain, shortness of breathing, nausea/vomiting/abdominal pain , facial droop/slurry speech/local weakness, or if has any questions. - fall precaution - diet as instructed - you need to follow up with your subspecialist, GI service Dr. Thompson, you will get a phone call from their service fro the appointment, but, you need to call if no body call you in 2-3 days. Current Hospital Diet Patient's current hospital diet: Diabetes Type 2 Diet Discharge Diet Recommended Diet: Diabetes Type 2 Diet Procedures Procedures Performed: EGD COLONOSCOPY WITH BX Pending Studies Studies pending at discharge: yes List of pending studies: will need to follow up with pcp Laboratory Results Hemoglobin A1c Test 01/10/18 19:06 Range/Units Estimated Average Glucose 183 mg/dl Hemoglobin A1c 8.0 H 4.5-5.6 % Medical Emergencies . Who to Call and When: Medical Emergencies: If at any time you feel your situation is an emergency, please call 911 immediately. . Non-Emergent Contact Non-Emergency issues call your: Primary Care Provider, [employer] Supplier . . "Provider Documentation" section prepared by Maxwell Cooley. .
[2018-01-13] MEDS ORDERED: CIPROFLOXACIN 500 MG TAB PO SCH (09:00)
[2018-01-13] MEDS ORDERED: METRONIDAZOLE 500 MG TAB PO SCH (09:00)
[2018-01-13] MEDS: ALPRAZOLAM 0.5 MG TAB PO SCH (09:47)
[2018-01-13] MEDS: ROPINIROLE HCL 1 MG TAB PO SCH (09:47)
[2018-01-13] MEDS: DULOXETINE HCL 60 MG CAP PO SCH (09:47)
[2018-01-13] MEDS: PANTOprazole SOD 40 MG TAB PO SCH (09:48)
[2018-01-13] MEDS: GABAPENTIN 400 MG CAP PO SCH (09:48)
[2018-01-13] MEDS: INSULIN GLARGINE SOLOSTAR 100 UNITS/ML 3 ML PEN SC SCH (09:52)
[2018-01-13] MEDS: INSULIN ASPART 100 UNITS/ML 3 ML PEN SC SCH (09:53)
[2018-01-13 10:33] VITALS: BP 155/94; PULSE 94; TEMP 36.7; O2SAT 94
--- NOTE | 2018-01-13 15:08 | Discharge Summary ---
Discharge Summary Date of Service January 13, 2018. Discharge Summary Admission Date: January 10, 2018 at 23:04 Discharge Date: January 13, 2018 Discharge Disposition: Home Principal Diagnosis: Diarrhea Problems/Secondary Diagnoses: Non-bleeding internal hemorrhoids. Newly diagnosed T2DM- hgbA1c 8.0%, History of gestational diabetic Procedures: EGD and colonoscopy on January 12, 2018 Consultations: GI service Dr. Thompson Medication Reconciliation New Medications: Ciprofloxacin (Ciprofloxacin HCl) 500 Mg Tab 500 MG PO BID for 6 Days, #12 TAB Insulin Glargine (Lantus Solostar) 100 Unit/Ml Inj 7 UNITS SC HS for 30 Days Metronidazole (Metronidazole) 500 Mg Tab 500 MG PO BID for 6 Days, #12 TAB Continued Medications: Alprazolam (Xanax) 0.5 Mg Tab 0.5 MG PO QID, TAB Diclofenac (Voltaren) 50 Mg Tabec 50 MG PO TID, TAB TAKE THIS MEDICATION WITH FOOD Duloxetine Hcl (Cymbalta) 60 Mg Cap 60 MG PO BID, CAP Gabapentin (Neurontin) 400 Mg Cap 400 MG PO QID, CAP Methocarbamol (Robaxin) 750 Mg Tab 750 MG PO HS, TAB Omeprazole (Prilosec) 40 Mg Cap 40 MG PO DAILY, CAP Quetiapine Fumarate (Seroquel) 400 Mg Tab 400 MG PO HS, TAB Ropinirole (Requip) 4 Mg Tab 4 MG PO BID, TAB Sumatriptan Succinate (Imitrex) 100 Mg Tab 100 MG PO DAILY PRN for Migraine Temazepam (Restoril) 30 Mg Cap 30 MG PO HS, CAP Discharge Exam Doing well, pleasant, no complaint Review of Systems: Constitutional: No fever, No chills, No sweats, No weight loss, No weakness , No fatigue, No problem reported Eyes: No worsening of vision, No eye pain, No redness, No discharge, No diplopia, No problem reported ENT: No hearing loss, No unusual epistaxis, No nasal symptoms, No sore throat, No tinnitus, No dental problems, No trouble swallowing, No problem reported Respiratory: No cough, No sputum, No wheezing, No shortness of breath, No dyspnea on exertion, No dyspnea at rest, No hemoptysis, No problem reported Cardiovascular: No chest pain, No orthopnea, No PND, No edema, No claudication, No palpitations, No problem reported Abdomen: No pain, No nausea, No vomiting, No diarrhea, No constipation, No GI bleeding, No problem reported Musculoskeletal: No joint pain, No muscle pain, No swelling, No calf pain, No problem reported Genitourinary - Female: No dysuria, No urinary frequency, No urinary urgency , No urinary incontinence, No urinary retention, No hematuria, No dysmenorrhea, No menorrhagia, No metrorrhagia, No rash, No vaginal bleeding, No vaginal discharge, No vaginal itching, No vulvodynia, No , No problem reported Neurologic: No memory loss, No paralysis, No weakness, No numbness/tingling , No vertigo, No balance problems, No problem reported Psychiatric: No depression symptoms, No anhedonism, No anxiety, No insomnia , No substance abuse, No problem reported Endocrine: No fatigue, No excessive thirst, No excessive urination, No problem reported Integumentary: No rash, No itch, No new/changing skin lesions, No color change, No bleeding, No problem reported Physical Exam: General Appearance: WD/WN, + obese Eyes: normal inspection, PERRL, EOMI ENT: normal ENT inspection, hearing grossly normal, TMs normal Neck: supple, no adenopathy, thyroid normal Respiratory/Chest: chest non-tender, normal breath sounds, no respiratory distress, no accessory muscle use, + decreased breath sounds Cardiovascular: regular rate, rhythm, no edema, no gallop, no JVD Abdomen / GI: normal bowel sounds, non tender, soft, no organomegaly, no pulsatile mass Extremities: normal inspection, no calf tenderness, normal capillary refill Neurologic/Psychiatric: medication specialist II-XII nml as tested, no motor/sensory deficits , alert, normal mood/affect, normal reflexes, oriented x 3 Skin: normal color, warm/dry, no rash Lymphatic: no adenopathy Hospital Course 47 y/o C female presenting with 2+ weeks of profuse, watery diarrhea now with blood and mucus. CT suggestive of colonic inflammation, not necessarily acute. Patient denies recent colonoscopy. Diarrhea - etiology unclear: Abominal x-ray w/out acute findings, C.diff negative; Stool cultures- negative, +Stool Hemoccult , Amylase, Lipase WNL GI consulted, appreciate recommendations- IV Cipro + Flagyl x10 days, colonoscopy and EGD Was done yesterday and the results in below: per report , EGD shows: : - Normal esophagus. - Normal stomach. - Normal examined duodenum. - No specimens collected. per report, colonoscope shows:- Erythematous and onwwvmov-vhrkpww-fhyeemhxv mucosa in the ascending colon. Biopsied. - Non-bleeding internal hemorrhoids. - Several random biopsies were obtained in the rectum, in the sigmoid colon, in the descending colon and in the transverse colon. Enlarged liver noted on CT: Liver function test was normal, encouraged to follow-up with PCP and GI Elevated d-dimer: CTA negative for PE Anemia, likely dilution vs GI bleed- STABLE: Newly diagnosed T2DM- hgbA1c 8.0%: - Started Lantus 7 u BID, blood glucose has been on 150-190, I discharged home with Lantus 7 units nightly, PCP please follow-up - [facility] and [facility] - community educator consulted Depression/, anxiety- STABLE: Continue Xanax, Seroquel, and Restoril Chronic pain- STABLE: Continue Cymbalta, Neurontin, Robaxin GERD: Protonix daily while inpatient Patient will be discharged in stable condition Instructions / Follow-Up you have Diarrhea - etiology unclear: colonoscopy and EGD were done per report , EGD shows: : - Normal esophagus. - Normal stomach. - Normal examined duodenum. - No specimens collected. per report, colonoscope shows:- Erythematous and jsegjrlr-czkyjbd-mvrvgkffq mucosa in the ascending colon. Biopsied. - Non-bleeding internal hemorrhoids. - Several random biopsies were obtained in the rectum, in the sigmoid colon, in the descending colon and in the transverse colon. continue Cipro + Flagyl x for total 10 days, you need to follow up with Dr. Thompson , include for final pathology results. you ahve enlarged liver noted on CT: Liver function test was normal, encouraged to follow-up with PCP and GI you have Newly diagnosed T2DM- hgbA1c 8.0%, Started Lantus 7 uit BID in hospital, will recommend 7 unit HS for now, you need to follow up with pcp for further care.. you need to f/u as OP w/ Dr Grijalva @ [facility]- you agrees to call for appt, Encourage eliminating sweet drinks, call pcp if Blood glucose >400, or less than 70 below is more advice from community educator: Monitoring Blood Glucose Comment * Recommend 2x/d at varying times just to see what results are Blood Glucose Goal * Before Meals 70-110 * After Meals Less than 140 Blood Glucose Goal Comment * Share results with your Dr When to Call Provider Comment * Blood sugars consistently above these limits Medication Comment * Discuss w/ your Dr if you may need pills for diabetes Diet Instructions * Decrease Portion Sizes * Reduce Sweetened Drinks Diet Instruction Comment * Try eliminating (or cutting sweet drink consumption) severely Activity Level Comment: * Try to find something you can do for activity- this will help blood sugars Prescriptions Needed * Strips and Lancets Strips/Lancets Brand Name * One Touch Verio strips & Delica lancets for 2x/d monitoring for now (Rx was enclosed upon discharge) - you need to follow up with your primary care physician in 1 week, - take medication as instructed, never overdose or any misuse, or take with alcohol, because misuse of medicine may cause organ damage or , call me , or your primary care physician if have questions of discharge medicaitons. - call your primary care physician, or go to local emergency room if has any fever/chill, chest pain, shortness of breathing, nausea/vomiting/abdominal pain , facial droop/slurry speech/local weakness, or if has any questions. - fall precaution - diet as instructed - you need to follow up with your subspecialist, GI service Dr. Thompson, you will get a phone call from their service fro the appointment, but, you need to call if no body call you in 2-3 days. Total Time Spent: Greater than 30 minutes This includes examination of the patient, discharge planning, medication reconciliation, and communication with other providers. Discharge Instructions Please refer to the electronic Patient Visit Report (Discharge Instructions) for additional information. Additional Copies To Bhaskar Thompson D.O.; Miah Grijalva M.D.
== END 2018-01-13 11:22 | disposition home or self-care (01) | DRG 379 ==
LOC: C.EDB 18:06 → C.MSW 23:04 → EDBEDREQ 23:10 → EDBEDREQSVC 23:10 → ENRESERV 23:23 → C.MSW 01-11 15:43
PROVIDERS: ADMIT Internal Medicine; ATTEND Internal Medicine
PROC: 0DBL8ZX Excision of Transverse Colon, Via Natural or Artificial Opening Endoscopic, Diagnostic (ICD-10-PCS; principal; 2018-01-12 13:15)
PROC: 0DBP8ZX Excision of Rectum, Via Natural or Artificial Opening Endoscopic, Diagnostic (ICD-10-PCS; principal; 2018-01-12 13:15)
PROC: 0DBN8ZX Excision of Sigmoid Colon, Via Natural or Artificial Opening Endoscopic, Diagnostic (ICD-10-PCS; principal; 2018-01-12 13:15)
PROC: 0DBM8ZX Excision of Descending Colon, Via Natural or Artificial Opening Endoscopic, Diagnostic (ICD-10-PCS; principal; 2018-01-12 13:15)
PROC: 0DJ08ZZ Inspection of Upper Intestinal Tract, Via Natural or Artificial Opening Endoscopic (ICD-10-PCS; 2018-01-12 13:15)
DX: K92.1 Melena (principal); R19.7 Diarrhea, unspecified; K21.9 Gastro-esophageal reflux disease without esophagitis; K64.8 Other hemorrhoids; F32.9 Major depressive disorder, single episode, unspecified; F41.9 Anxiety disorder, unspecified; F43.10 Post-traumatic stress disorder, unspecified; G89.29 Other chronic pain; E87.6 Hypokalemia; E83.42 Hypomagnesemia; K58.2 Mixed irritable bowel syndrome; D64.9 Anemia, unspecified; E11.9 Type 2 diabetes mellitus without complications; F17.200 Nicotine dependence, unspecified, uncomplicated; Z79.899 Other long term (current) drug therapy

== ENCOUNTER → 2018-04-05 | Day surgery (SDC) | payer OTHER ==
[2018-04-03 11:11] VITALS: BMI 35.0
[~2018-04-05] VITALS: Ht 170.2 cm; Wt 102.3 kg
[~2018-04-05] MED LIST changes: +ALPR-411 PO; +AMPH10TA2 PO; +DULO60CA44 PO; +GABA-113 PO; +INSU100I23 INJ; +LIDOCAINE HCL 2% 2 ML VIAL (20MG/ML) ONE; +METFTAB PO; +METH-307 PO; +METH500T37 PO; +OMEP40CA41 PO; +ONDANSETRON INJ 2 MG/ML 2 ML VIAL ONE; +PROPOFOL IV EMULSION 10 MG/ML 20 ML VIAL ONE; +QUET1TAB13 PO; +SODIUM CHLORIDE 0.9% 500ML 500 ML IV ONE
[2018-04-05 14:28] VITALS: Ht 170.2 cm; Wt 102.3 kg
--- NOTE | 2018-04-05 15:21 | Endo History and Physical ---
History & Physical Date of Service: Apr 05, 2018. Chief Complaint: COLITIS Referring Physician: DR. GLEASON History of Present Illness 47 yo CF who presents for colonoscopy secondary to colitis. Past Surgical History Hx Cardiac Surgery: No Hx Internal Defibrillator: No Hx Abdominal Surgery: Yes (C SECTION) Hx of Implantable Prosthesis: No Hx Post-Op Nausea and Vomiting: No Hx Cancer Surgery: No Hx Thoracic Surgery: No Hx Orthopedic: Yes (R ARM TENDON REPAIR, SI INJECTION,LUMBAR INJECTION) Hx Urinary Tract Surgery: No Family History None Social History Smoking Status: Current Every Day Smoker Hx Substance Use: No Hx Alcohol Use: No Allergies Coded Allergies: NO KNOWN DRUG ALLERGIES (Verified Allergy, Unknown, NONE, 04/05/18) Adhesives (Verified Adverse Reaction, Mild, "Paper tape" -- rash, 04/05/18) Current Medications Reported Home Medications Medications Dose Route/Sig Max Daily Dose Days Date Category Dose Instructions Robaxin (Methocarbamol) 500 Mg Tab 500 Mg PO QID 04/05/18 Reported Glucophage Ext Rel (Metformin HCl) 500 Mg Tab 500 Mg PO QPM 04/03/18 Reported Adderall 10MG (Amphetamine-Dextroamphetamine 10MG) 1 Tab Tab 10 Mg PO BID 04/03/18 Reported AM/NOON Basaglar Kwikpen (Insulin Glargine) 100 Unit/Ml Inj 31 Units INJ HS 04/03/18 Reported Neurontin (Gabapentin) 300 Mg Cap 600 Mg PO QID 04/03/18 Reported Cymbalta (Duloxetine Hcl) 60 Mg Cap 60 Mg PO BID 01/09/18 Reported Xanax (Alprazolam) 0.5 Mg Tab 0.5 Mg PO QID 01/09/18 Reported Prilosec (Omeprazole) 40 Mg Cap 40 Mg PO QAM 01/09/18 Reported Seroquel (Quetiapine Fumarate) 400 Mg Tab 400 Mg PO HS 01/09/18 Reported Imitrex (Sumatriptan Succinate) 100 Mg Tab 100 Mg PO DAILY PRN 06/02/16 Reported Requip (Ropinirole HCl) 4 Mg Tab 8 Mg PO HS 03/16/16 Reported Restoril (Temazepam) 30 Mg Cap 30 Mg PO HS 03/16/16 Reported Vital Signs Weight (Kilograms): 102.27 Height (Feet): 5 Height (Inches): 7 Date Time Temp Pulse Resp B/P (MAP) Pulse Ox O2 Delivery O2 Flow Rate FiO2 04/05/18 14:55 36.8 106 20 140/87 (104) 96 Room Air Physical Exam General Appearance: WD/WN, no apparent distress Respiratory/Chest: Auscultation: breath sounds normal Cardiovascular: Heart Auscultation: RRR Abdomen: Bowel Sounds: normal Inspection & Palpation: soft, non-distended, no tenderness, guarding & rebound Assessment and Plan Assessment: 47 yo CF who presents for colonoscopy secondary to colitis. Plan: Proceed with colonoscopy.
--- NOTE | 2018-04-05 16:15 | Discharge Instructions ---
Endoscopy Patient Instructions Date / Procedure(s) Performed Apr 05, 2018. Colonoscopy Allergy Information Coded Allergies: NO KNOWN DRUG ALLERGIES (Verified Allergy, Unknown, NONE, 04/05/18) Adhesives (Verified Adverse Reaction, Mild, "Paper tape" -- rash, 04/05/18) Discharge Date / Findings Apr 05, 2018. Random colon biopsies Internal hemorrhoids Medication Instructions OK to resume all medications today as prescribed Reported Home Medications Medications Dose Route/Sig Max Daily Dose Days Date Category Dose Instructions Robaxin (Methocarbamol) 500 Mg Tab 500 Mg PO QID 04/05/18 Reported Glucophage Ext Rel (Metformin HCl) 500 Mg Tab 500 Mg PO QPM 04/03/18 Reported Adderall 10MG (Amphetamine-Dextroamphetamine 10MG) 1 Tab Tab 10 Mg PO BID 04/03/18 Reported AM/NOON Basaglar Kwikpen (Insulin Glargine) 100 Unit/Ml Inj 31 Units INJ HS 04/03/18 Reported Neurontin (Gabapentin) 300 Mg Cap 600 Mg PO QID 04/03/18 Reported Cymbalta (Duloxetine Hcl) 60 Mg Cap 60 Mg PO BID 01/09/18 Reported Xanax (Alprazolam) 0.5 Mg Tab 0.5 Mg PO QID 01/09/18 Reported Prilosec (Omeprazole) 40 Mg Cap 40 Mg PO QAM 01/09/18 Reported Seroquel (Quetiapine Fumarate) 400 Mg Tab 400 Mg PO HS 01/09/18 Reported Imitrex (Sumatriptan Succinate) 100 Mg Tab 100 Mg PO DAILY PRN 06/02/16 Reported Requip (Ropinirole HCl) 4 Mg Tab 8 Mg PO HS 03/16/16 Reported Restoril (Temazepam) 30 Mg Cap 30 Mg PO HS 03/16/16 Reported Provider Instructions Activity Restrictions - No exercising or heavy lifting for 24 hours. - Do not drink alcohol the day of the procedure. - Do not drive a car or operate machinery until the day after the procedure. - Do not make any important decisions or sign important papers in 24 hours after the procedure. Following Day: - Return to full activity which may include returning to work/school. Diet Start your diet with liquids and light foods (jello, soup, juice, toast). Then eat your usual diet if not nauseated. Treatment For Common After Affects For mild abdominal pain, bloating, or excessive gas: - Rest - Eat lightly - Lie on right side Follow-Up Information Follow-up with DR. GLEASON as scheduled Anesthesia Information What You Should Know You have had a procedure that required some medicine to reduce anxiety and discomfort. This treatment is called moderate sedation. After receiving the treatment, you may be sleepy, but you will be able to breathe on your own. The effects of the treatment may last for several hours. Follow these instructions along with Activity/Diet recommendations noted above: * Do NOT do anything where dizziness or clumsiness would be dangerous. * Rest quietly at home today, then you can be up and about tomorrow. * Have a responsible person stay with you the rest of today. * You may have had an I.V. today. If so, you may take the dressing off later today. Recommendations Call your doctor if: * Trouble breathing * Continuous vomiting for more than 24 hours * Temperature above 101 degrees * Severe abdominal pain or bloating * Pain not relieved by pain medicine ordered * There is increased drainage or redness from any incision * A large amount of rectal bleeding greater than 2-3 tablespoons. (If you had a polyp/s removed or have hemorrhoids, a small amount of blood - from the rectum is to be expected.) * You have any unanswered questions or concerns. IN THE EVENT OF A SERIOUS EMERGENCY, GO TO THE NEAREST EMERGENCY ROOM Your discharge instructions were prepared by provider Bhaskar Thompson. Patient Instructions Signature Page Tamara Ramon Patient (or Guardian) Signature/Date: I have read and understand the instructions given to me by my caregivers. Caregiver/RN/Doctor Signature/Date: The above-named patient and/or guardian has received patient instructions on this date. + Original Patient Signature Page (only) stays with chart. Please make copy for patient.
--- NOTE | 2018-04-05 16:25 | GI REPORT ---
Patient Name: Tamara Ramon Procedure Date: 04/05/2018 3:30 PM Date of : 1970 Admit Type: Outpatient Age: 47 Gender: Female Attending MD: Bhaskar Thompson DO Procedure: Colonoscopy Providers: Bhaskar Thompson DO Referring MD: Carmen Myers Indications: Colitis, presumed infectious Medicines: Monitored Anesthesia Care Complications: No immediate complications. Estimated Blood Loss: Estimated blood loss: none. Procedure: Pre-Anesthesia Assessment: - Prior to the procedure, a History and Physical was performed, and patient medications and allergies were reviewed. The patient's tolerance of previous anesthesia was also reviewed. The risks and benefits of the procedure and the sedation options and risks were discussed with the patient. All questions were answered, and informed consent was obtained. Prior Anticoagulants: The patient has taken no previous anticoagulant or antiplatelet agents. ASA Grade Assessment: III - A patient with severe systemic disease. After reviewing the risks and benefits, the patient was deemed in satisfactory condition to undergo the procedure. After I obtained informed consent, the scope was passed under direct vision. Throughout the procedure, the patient's blood pressure, pulse, and oxygen saturations were monitored continuously. The Scope was introduced through the anus and advanced to the terminal ileum. The colonoscopy was performed without difficulty. The patient tolerated the procedure well. The quality of the bowel preparation was good. The terminal ileum, ileocecal valve, appendiceal orifice, and rectum were photographed. Findings: The perianal and digital rectal examinations were normal. Non-bleeding internal hemorrhoids were found during retroflexion. The hemorrhoids were small. Several random biopsies were obtained with cold forceps for histology in the entire colon. Impression: - Non-bleeding internal hemorrhoids. - Several random biopsies were obtained in the entire colon. Recommendation: - Resume previous diet. - Continue present medications. - Repeat colonoscopy for surveillance based on pathology results. - Return to primary care physician as previously scheduled. Bhaskar Thompson DO 04/05/2018 4:24:36 PM This report has been signed electronically. Note Initiated On: 04/05/2018 3:30 PM Number of Addenda: 0 I attest to the content of the Intraoperative Record and orders documented therein, exceptions below {[id number]}
[2018-04-05 16:41] VITALS: BP 133/95; PULSE 94; O2SAT 95
--- NOTE | 2018-04-05 16:50 | Anesthesiology Progress Note ---
Anesthesia Post Op Note Date & Time Apr 05, 2018 at 16:49 Vital Signs Pain Intensity: 0 Vital Signs Past 12 Hours Date Time Temp Pulse Resp B/P (MAP) Pulse Ox O2 Delivery O2 Flow Rate FiO2 04/05/18 16:41 94 18 133/95 (108) 95 Room Air 04/05/18 16:25 94 18 147/82 (103) 95 Room Air 04/05/18 16:10 95 18 120/79 (93) 95 Room Air 04/05/18 14:55 36.8 106 20 140/87 (104) 96 Room Air Notes Mental Status: alert / awake / arousable, participated in evaluation Pt Amnestic to Procedure: Yes Nausea / Vomiting: adequately controlled Pain: adequately controlled Airway Patency, RR, SpO2: stable & adequate BP & HR: stable & adequate Hydration State: stable & adequate Anesthetic Complications: no major complications apparent
== END | disposition home or self-care (01) ==
LOC: C.GI 14:22
PROVIDERS: ATTEND Internal Medicine
DX: K52.9 Noninfective gastroenteritis and colitis, unspecified (principal); K64.9 Unspecified hemorrhoids; F17.200 Nicotine dependence, unspecified, uncomplicated; K21.9 Gastro-esophageal reflux disease without esophagitis; E11.9 Type 2 diabetes mellitus without complications; Z79.4 Long term (current) use of insulin

== ENCOUNTER → 2018-04-16 | Outpatient (CLI) | payer OTHER ==
[~2018-04-16] MED LIST changes: -LIDOCAINE HCL 2% 2 ML VIAL (20MG/ML) ONE; -METH-307 PO; +METH-445 PO; -METH500T37 PO; -ONDANSETRON INJ 2 MG/ML 2 ML VIAL ONE; -PROPOFOL IV EMULSION 10 MG/ML 20 ML VIAL ONE; -SODIUM CHLORIDE 0.9% 500ML 500 ML IV ONE
--- NOTE | 2018-04-16 14:44 | DIAGNOSTIC IMAGING REPORT ---
PA CHEST WITH ABDOMINAL SERIES CLINICAL HISTORY: C. Difficile diarrhea. FINDINGS: A PA chest radiograph is correlated with chest CT dated 01/12/2018. The cardiomediastinal silhouette is unremarkable. There is mild bibasilar atelectasis. There is a trace right pleural effusion. The lungs and pleural spaces are otherwise clear. No pneumothorax is seen. The bony thorax is grossly intact. Supine and erect abdominal radiographs are compared to study dated 01/12/2018 and correlated with abdominal CT dated 01/10/2018. There is a nonobstructed abdominal bowel gas pattern. There is no colonic dilatation. No evidence of intraperitoneal free air is seen. There are no abnormal abdominal calcifications. The lumbosacral spine and bony pelvis appear intact. IMPRESSION: 1. Trace right pleural effusion. The lungs are otherwise clear. 2. Nonobstructed abdominal bowel gas pattern. Electronically signed by: German Ackerman M.D. 04/16/2018 2:43 PM Dictated Date/Time: 04/16/2018 2:41 PM
== END | disposition home or self-care (01) ==
LOC: C.RAD 13:59
PROVIDERS: ATTEND Physician Assistant
DX: R10.9 Unspecified abdominal pain (principal); A04.72 Enterocolitis due to Clostridium difficile, not specified as recurrent

== ENCOUNTER 2019-07-01 13:45 | Inpatient (IN) ==
[2019-07-01] MEDS ORDERED: ACETAMINOPHEN 1,000 MG/100 ML VIAL IV STA (14:33)
[2019-07-01] MEDS ORDERED: SODIUM CHLORIDE 0.9% 1000ML 1,000 ML IV SCH (14:45)
[2019-07-01 15:08] LABS: iSTAT Blood Urea Nitrogen 5 mg/dl (7-18); iSTAT Carbon Dioxide 27 mEq/l (24-31); iSTAT Chloride 105 mEq/L (101-112); iSTAT Creatinine 0.8 mg/dl (0.6-1.3); iSTAT Glucose 122 mg/dl (70-99); iSTAT Hematocrit 47 % (37-47); iSTAT Ionized Calcium 1.18 mmol/l (1.12-1.32); iSTAT Potassium < 2.0 mEq/L (3.3-5.0); iSTAT Sodium 144 mEq/L (135-144)
[2019-07-01 15:13] LABS: Albumin Globulin Ratio 0.9 (0.9-2); Albumin Level 3.7 gm/dl (3.4-5.0); BUN Creatinine Ratio 8.1 (10-20); Bilirubin,Total 0.3 mg/dl (0.2-1); Calcium 9.6 mg/dl (8.5-10.1); Creatinine Clr Calc Pharmacy 88.1 ml/min; Est GFR (African American) 88.3; Est GFR (Non-African American) 76.1; Globulin 4.2 gm/dl (2.5-4.0); Magnesium 2.3 mg/dl (1.8-2.4); Potassium 1.5 mmol/L (3.5-5.1); Total Protein 7.9 gm/dl (6.4-8.2); Troponin I 0.019 ng/ml (0-0.045)
[2019-07-01 15:14] LABS: Pregnancy Test, Serum Negative (Negative)
[2019-07-01] MEDS ORDERED: POTASSIUM CHLORIDE 20 MEQ TABCR PO STA (15:17)
[2019-07-01] MEDS: NSS + 20MEQ KCL 20 MEQ/1,000 ML BAG IV SCH ×3 (15:30→19:51)
[2019-07-01] MEDS ORDERED: IOVERSOL 100ml IV PRN (15:57)
--- NOTE | 2019-07-01 16:03 | CT Scan Report ---
CT head/brain wo con CLINICAL HISTORY: Head pain status post trauma COMPARISON STUDY: No previous studies for comparison. TECHNIQUE: Axial CT of the brain is performed from the vertex to the skull base. IV contrast was not administered for this examination. A dose lowering technique was utilized adhering to the principles of ALARA. CT DOSE: FINDINGS: No intra or extra-axial mass lesions are visualized. There is no CT evidence of acute cortical infarc tion. There is no evidence of midline shift. There is no acute hemorrhage. No calvarial fractures ar e visualized. There is no evidence of pathologic ventricular dilatation. There is no evidence of acute sinusitis IMPRESSION: No acute intracranial findings Electronically signed by: Bartolo Velásquez M.D. 07/01/2019 4:02 PM
--- NOTE | 2019-07-01 16:04 | CT Scan Report ---
CT OF THE CERVICAL SPINE CLINICAL HISTORY: Neck pain status post trauma COMPARISON STUDY: No previous studies for comparison. CT DOSE: TECHNIQUE: CT scan of the cervical spine was performed from the skull base to the thoracic inlet. Dorothy ges are reviewed in the axial, sagittal, and coronal planes. IV contrast was not administered for thi s examination. A dose lowering technique was utilized adhering to the principles of ALARA. FINDINGS: The prevertebral soft tissues are normal. No fractures or subluxations are visualized. There are minor degenerative changes. IMPRESSION: No evidence of acute fracture or traumatic subluxation. Electronically signed by: Bartolo Velásquez M.D. 07/01/2019 4:02 PM
--- NOTE | 2019-07-01 16:06 | CT Scan Report ---
CT lumbar spine wo con CT DOSE: HISTORY: Trauma. Pain. trauma, pain TECHNIQUE: Multiaxial CT images of the lumbar spine were performed and reformatted in the sagittal an d coronal plane without the use of contrast. A dose lowering technique was utilized adhering to the principles of ALARA. COMPARISON: None. FINDINGS: No fractures. No subluxation. Paraspinal soft tissues are unremarkable. IMPRESSION: No fractures within the lumbar spine. Normal study The above report was generated using voice recognition software. It may contain grammatical, syntax or spelling errors. Electronically signed by: Michi Barahona M.D. 07/01/2019 4:04 PM
--- NOTE | 2019-07-01 16:08 | CT Scan Report ---
CT abd pelvis IV con only CT DOSE: 2541.61 mGy.cm HISTORY: Trauma. Pain. trauma TECHNIQUE: Multiaxial CT images of the abdomen and pelvis were performed following the use of intrave nous contrast. A dose lowering technique was utilized adhering to the principles of ALARA. COMPARISON STUDY: None. FINDINGS: The lung bases are clear. The liver, spleen, gallbladder, pancreas, kidneys, and adrenal gl ands are within normal limits. No bowel wall thickening or obstruction. The pelvic organs are unremar kable. No suspicious lytic or blastic osseous lesions. Moderate bladder distention IMPRESSION: No significant abnormality identified within the abdomen or pelvis. Moderate bladder distention. The above report was generated using voice recognition software. It may contain grammatical, syntax or spelling errors. Electronically signed by: Michi Barahona M.D. 07/01/2019 4:07 PM
--- NOTE | 2019-07-01 16:13 | CT Scan Report ---
CT thoracic spine wo con CT DOSE: HISTORY: Trauma. Pain. trauma, pain TECHNIQUE: Multiaxial CT images of the thoracic spine were performed and reformatted in the sagittal and coronal plane without the use of contrast. A dose lowering technique was utilized adhering to th e principles of ALARA. COMPARISON: None. FINDINGS: No fractures. No subluxation. Paraspinal soft tissues are unremarkable. IMPRESSION: No fractures within the thoracic spine. The above report was generated using voice recognition software. It may contain grammatical, syntax or spelling errors. Electronically signed by: Michi Barahona M.D. 07/01/2019 4:12 PM
--- NOTE | 2019-07-01 16:15 | CT Scan Report ---
CT OF THE CHEST WITH IV CONTRAST CLINICAL HISTORY: Chest pain status post trauma COMPARISON STUDY: January 2018 TECHNIQUE: Following the IV administration of 93 mL of Optiray-320, CT of the thorax was performed f rom the thoracic inlet to the lung bases. Images are reviewed in the axial, sagittal, and coronal lynn justin. IV contrast was administered without complication. A dose lowering technique was utilized adher ing to the principles of ALARA. CT DOSE: FINDINGS: Thyroid: Imaged portions of the thyroid gland are normal in appearance. Thoracic aorta: The thoracic aorta is normal in course and caliber, noting standard 3-vessel arch larry jerome. No aneurysm or dissection is seen. Pulmonary vasculature: The pulmonary trunk is normal in caliber. There are no central filling defects identified to suggest pulmonary embolus. Note that this examination was not protocoled for the evalu ation of pulmonary emboli. HEART: The heart is normal in size and configuration, without pericardial effusion. Lungs and pleural spaces: There are trace bilateral pleural effusions. There is no pneumothorax. Ther e is no evidence of focal pulmonary contusion. Mediastinum: There is no evidence of pathologic mediastinal lymphadenopathy. There is no evidence of mediastinal hematoma. Mandy: There is no evidence of pathologic hilar lymphadenopathy. Axilla: There is no evidence of pathologic axillary lymphadenopathy. Upper abdomen: Partially visualized upper abdominal viscera is within normal limits. Skeletal structures: No destructive lesions are visualized. No fractures are evident. IMPRESSION: 1. No evidence of acute intrathoracic injury. 2. Trace bilateral pleural effusions 3. No evidence of focal pulmonary consolidation Electronically signed by: Bartolo Velásquez M.D. 07/01/2019 4:14 PM
--- NOTE | 2019-07-01 17:29 | History & Physical Report ---
Date of Service July 01, 2019 Assessment & Plan (1) Hypokalemia: Add potassium supplements. Repeat labs in a.m. (2) C. difficile colitis: Check stool for C. difficile. Start the patient empirically on Flagyl. Consult GI. Advised C diff precautions. (3) Diabetes mellitus: Sliding-scale insulin per protocol with Accu-Cheks per protocol. (4) Chronic pain: (5) GERD (gastroesophageal reflux disease): Continue PPI. (6) Microscopic colitis: History of microscopic colitis according to last colonoscopy report- Last year (7) Dehydration: Add IV fluids. (8) Depression with anxiety: Continue home medications. (9) RLS (restless legs syndrome): Continue with home meds. (10) Insomnia: (11) Current smoker: Smoking cessation advised. Advised nicotine patch. (12) Fatigue: (13) Diffuse abdominal pain: (14) Low back pain: (15) Migraines: (16) DVT prophylaxis: Add subcu heparin. History of Present Illness Chief Complaint: Diarrhea, generalized weakness and frequent falls Primary Care Provider: Berto Grijalva The patient is 48-year-old female who has a history of C. difficile colitis last August. 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 Now the patient is complaining of increasing diarrhea for the last 7 weeks. She denies any blood in the stool. She has nausea and occasional vomiting and occasional abdominal cramps. The patient is complained of generalized weakness getting worse for the last 4 days. She has frequent falls over the last 4 days. She fell 3 times today. The further work-up done in the ER showed that patient potassium is 1.5. She was started on potassium supplements and will be admitted for further evaluation and management. Allergies Allergy/AdvReac Type Severity Reaction Status Date / Time No Known Drug Allergies Allergy Unknown NONE Verified 07/01/19 15:07 adhesive AdvReac Mild "Paper Verified 07/01/19 15:07 tape" -- rash Home Medications Home Medications Medication Instructions Recorded Confirmed Type alprazolam 0.5 mg PO HS 08/01/18 07/01/19 History duloxetine 60 mg PO HS 08/01/18 07/01/19 History insulin glargine 0 units SUBCUT UD 08/01/18 07/01/19 History quetiapine 400 mg PO HS 08/01/18 07/01/19 History ropinirole 8 mg PO HS 08/01/18 07/01/19 History omeprazole 40 mg capsule,delayed 40 mg PO DAILY cap 04/01/19 07/01/19 History release sumatriptan 6 mg/0.5 mL 6 mg .ROUTE .COMPLEX #2 ml 04/01/19 07/01/19 History subcutaneous pen injector gabapentin 300 mg capsule 900 mg PO TID cap 04/19/19 07/01/19 History zolpidem 10 mg tablet 10 mg PO HS tab 04/19/19 07/01/19 History erenumab-aooe 140 mg/mL 140 mg SQ MONTHLY 30 Days #30 ml 05/10/19 07/01/19 Rx subcutaneous auto-injector sumatriptan 100 mg tablet 100 mg PO .COMPLEX 30 Days #9 tab 05/13/19 07/01/19 Rx promethazine 25 mg tablet 25 mg PO TID PRN 30 Days #30 tab 06/28/19 07/01/19 Rx baclofen 20 mg PO HS 07/01/19 07/01/19 History topiramate 100 mg PO QAM 07/01/19 07/01/19 History topiramate 200 mg PO QPM 07/01/19 07/01/19 History Past Med/Surg History Medical History Current smoker (Chronic) Depression with anxiety (Chronic) RLS (restless legs syndrome) (Chronic) Insomnia (Chronic) Chronic pain (Chronic) Migraines (Chronic) Diabetes mellitus (Chronic) GERD (gastroesophageal reflux disease) (Chronic) Microscopic colitis (Resolved) C. difficile colitis (Resolved) Colitis (Resolved) Surgical History Previous section (Chronic) History of endometrial ablation (Chronic) Family History Mother Hypercholesteremia Hypertension Father Hypercholesteremia Hypertension Prostate cancer Other No pertinent family history Social History Preferred Language: Chinese Communication Ability: Effective Visual Impairment: No Limitations Hearing Ability: Normal Hand Sample Maker Required: No Beliefs That Will Affect Care: None marital status: Current Living Situation: Parent and Family Current Living Situation Comment: Has an 8 yr old daughter current occupational status: unemployed Feels Safe at Home: Yes Smoking Status: Current every day smoker Tobacco Type: cigarettes ; Cigarettes Per Day: 20 ; Hx Alcohol Use: No Hx Substance Use: No Review of Systems Review of Systems: All systems reviewed & are unremarkable except as noted in HPI & below Constitutional: + fatigue, + malaise, + weakness and + anorexia Gastrointestinal: + abdominal pain, + nausea, + vomiting, + cramping, + change in stools and + diarrhea/loose stools Physical Exam Physical Exam: GENERAL : No acute distress EYES: No icterus, gaze conjugate NOSE: No evidence of epistaxis MOUTH: No lesions or candidiasis, mucosa moist NECK: Supple LUNGS: CTA B/L, no wheezes, rales or rhonchi HEART: Regular, rate controlled ABDOMEN: Soft, NT, ND, BS Present EXTREMITIES: No LE edema, pedal pulses intact NEURO: A&OX3 Results & Data Vital Signs (Past 12 Hours) Vital Signs Temp Pulse Resp BP BP Pulse Ox 07/01/19 16:09 70 18 153/90 H 99 07/01/19 14:01 98.2 F 18 166/86 H 98 Laboratory Results 07/01/19 14:[address] abd pelvis IV con only CT DOSE: 2541.61 mGy.cm HISTORY: Trauma. Pain. trauma TECHNIQUE: Multiaxial CT images of the abdomen and pelvis were performed following the use of intravenous contrast. A dose lowering technique was utilized adhering to the principles of ALARA. COMPARISON STUDY: None. FINDINGS: The lung bases are clear. The liver, spleen, gallbladder, pancreas, kidneys, and adrenal glands are within normal limits. No bowel wall thickening or obstruction. The pelvic organs are unremarkable. No suspicious lytic or blastic osseous lesions. Moderate bladder distention IMPRESSION: No significant abnormality identified within the abdomen or pelvis. Moderate bl adder distention. CT OF THE CHEST WITH IV CONTRAST CLINICAL HISTORY: Chest pain status post trauma COMPARISON STUDY: January 2018 TECHNIQUE: Following the IV administration of 93 mL of Optiray-320, CT of the thorax was performed from the thoracic inlet to the lung bases. Images are reviewed in the axial, sagittal, and coronal planes. IV contrast was administered without complication. A dose lowering technique was utilized adhering to the principles of ALARA. CT DOSE: FINDINGS: Thyroid: Imaged portions of the thyroid gland are normal in appearance. Thoracic aorta: The thoracic aorta is normal in course and caliber, noting standard 3-vessel arch anatomy. No aneurysm or dissection is seen. Pulmonary vasculature: The pulmonary trunk is normal in caliber. There are no central filling defects identified to suggest pulmonary embolus. Note that this examination was not protocoled for the evaluation of pulmonary emboli. HEART: The heart is normal in size and configuration, without pericardial effusion. Lungs and pleural spaces: There are trace bilateral pleural effusions. There is no pneumothorax. There is no evidence of focal pulmonary contusion. Mediastinum: There is no evidence of pathologic mediastinal lymphadenopathy. There is no evidence of mediastinal hematoma. Mandy: There is no evidence of pathologic hilar lymphadenopathy. Axilla: There is no evidence of pathologic axillary lymphadenopathy. Upper abdomen: Partially visualized upper abdominal viscera is within normal limits. Skeletal structures: No destructive lesions are visualized. No fractures are evident. IMPRESSION: 1. No evidence of acute intrathoracic injury. 2. Trace bilateral pleural effusions 3. No evidence of focal pulmonary consolidation The above report was generated using voice recognition software. It may contain grammatical, syntax or spelling errors. Code Status & VTE Plan Code Status Full code VTE Prophylaxis Plan VTE Prophylaxis will be ordered: Yes PG Care Time/CCT Total # of Minutes Spent Total Time Spent with Patient: Total time spent is greater than 50% in coordination of care (as documented) at patient's floor/unit and/or counseling patient: (1) Chronic pain Chronic pain type: other chronic pain Qualified Code(s): G89.29 - Other chronic pain (2) Diabetes mellitus Diabetes mellitus type: type 2 Diabetes mellitus terminal carman insulin use: with terminal carman use Diabetes mellitus complication status: with neurologic complications Diabetes mellitus complication detail: with polyneuropathy Qualified Code(s): E11.42 - Type 2 diabetes mellitus with diabetic polyneuropathy; Z79.4 - skilled nursing (current) use of insulin (3) Migraines Migraine type: without aura Status migrainosus presence: without status migrainosus Intractability: not intractable Qualified Code(s): G43.009 - Migraine without aura, not intractable, without status migrainosus (4) Microscopic colitis Microscopic colitis type: unspecified Qualified Code(s): K52.839 - Microscopic colitis, unspecified
[2019-07-01 17:30] LABS: Phosphorus 1.3 mg/dl (2.5-4.9)
[2019-07-01] MEDS ORDERED: POTASSIUM PHOS 3 MMOL/1 ML INFUSION IV STA (17:33)
[2019-07-01] MEDS ORDERED: POTASSIUM PHOSPHATE 40 MMOL in SODIUM CHLORIDE 0.9% 1000ML 1,000 ML IV STA (17:35)
[2019-07-01] MEDS ORDERED: ALUMINUM/MAGNESIUM SUSP 30 ML UDC PO PRN (18:23)
[2019-07-01] MEDS ORDERED: ACETAMINOPHEN 325 MG TAB PO PRN (18:23)
[2019-07-01] MEDS ORDERED: ONDANSETRON INJ 2 MG/ML 2 ML VIAL IV PRN (18:23)
[2019-07-01] MEDS ORDERED: MAGNESIUM HYDROXIDE SUSP 30 ML UDC PO PRN (18:23)
[2019-07-01] MEDS ORDERED: PROMETHAZINE HCL 25 MG TAB PO PRN (18:23)
[2019-07-01] MEDS ORDERED: POTASSIUM PHOSPHATE 15 MMOL in SODIUM CHLORIDE 0.9% 250 ML IV STA (18:44)
[2019-07-01] MEDS: POTASSIUM CHLORIDE / WTR 10 MEQ/100 ML PLCT IV SCH ×3 (19:54→23:50)
[2019-07-01] MEDS: RASPBERRY SYRUP 5 ML UDP PO SCH (20:05)
[2019-07-01] MEDS: VANCOMYCIN HCL 250 MG/5 ML SOLN PO SCH (20:05)
[2019-07-01] MEDS ORDERED: metroNIDAZOLE 500 MG TAB PO SCH (21:00)
[2019-07-01] MEDS ORDERED: BACLOFEN 20 MG TAB PO SCH (21:00)
[2019-07-01] MEDS: ALPRAZolam 0.5 MG TABLET PO SCH (21:46)
[2019-07-01] MEDS: ZOLPIDEM TARTRATE 10 MG TAB PO SCH (21:46)
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
[2019-07-01] MEDS: NICOTINE 14 MG/24 HR PATCH TD SCH (21:47)
[2019-07-01] MEDS: TOPIRAMATE 100 MG TAB PO SCH (21:49)
[2019-07-01] MEDS: DULOXETINE HCL 60 MG CAP PO SCH (21:50)
[2019-07-01] MEDS: GABAPENTIN 300 MG CAP PO SCH (21:50)
[2019-07-01] MEDS: INSULIN ASPART 100 UNITS/ML 3 ML PEN SC SCH (21:51)
[2019-07-01] MEDS: QUETIAPINE FUMARATE 200 MG TAB PO SCH (21:52)
[2019-07-01] MEDS: ROPINIROLE HCL 1 MG TABLET PO SCH (21:52)
[2019-07-01] MEDS: HEPARIN SOD 5,000 UNIT/0.5 ML VIAL SQ SCH (21:55)
[2019-07-01] MEDS ORDERED: BACLOFEN 20 MG TAB PO STA (22:27)
[2019-07-02] MEDS: RASPBERRY SYRUP 5 ML UDP PO SCH ×4 (00:40→21:22)
[2019-07-02] MEDS: VANCOMYCIN HCL 250 MG/5 ML SOLN PO SCH ×4 (00:40→21:22)
[2019-07-02] MEDS: POTASSIUM CHLORIDE / WTR 10 MEQ/100 ML PLCT IV SCH ×4 (02:07→13:45)
[2019-07-02] MEDS: HEPARIN SOD 5,000 UNIT/0.5 ML VIAL SQ SCH ×3 (05:37→21:23)
[2019-07-02] MEDS: NSS + 20MEQ KCL 20 MEQ/1,000 ML BAG IV SCH (05:38)
[2019-07-02 06:24] LABS: Hematocrit (blood only) 35.9 % (37-47); Hemoglobin 12.3 g/dL (12.0-16.0); Mean Corpuscular Hemoglobin 31.1 pg (25-34); Mean Corpuscular Hgb Conc 34.3 g/dL (32-36); Mean Corpuscular Volume 90.9 fL (80-100); Mean Platelet Volume 9.8 fL (7.4-10.4); Platelet Count 322 K/uL (130-400); RDW Coefficient of Variation 14.6 % (11.5-14.5); RDW Standard Deviation 48.4 fL (36.4-46.3); Red Blood Count 3.95 M/uL (4.2-5.4); White Blood Count 7.03 K/uL (4.8-10.8)
[2019-07-02 07:34] LABS: Alanine Aminotransferase 21 U/L (12-78); Albumin Globulin Ratio 0.9 (0.9-2); Albumin Level 2.7 gm/dl (3.4-5.0); Alkaline Phosphatase 83 U/L (45-117); Aspartate Aminotransferase 63 U/L (15-37); BUN Creatinine Ratio 9.1 (10-20); Bilirubin Direct < 0.1 mg/dl (0-0.2); Bilirubin,Total 0.4 mg/dl (0.2-1); Blood Urea Nitrogen 6 mg/dl (7-18); Calcium 7.5 mg/dl (8.5-10.1); Carbon Dioxide 25 mmol/L (21-32); Chloride 113 mmol/L (98-107); Creatinine Clr Calc Pharmacy 115.9 ml/min; Est GFR (African American) 121.9; Est GFR (Non-African American) 105.2; Globulin 3.1 gm/dl (2.5-4.0); Glucose 118 mg/dl (70-99); Magnesium 1.8 mg/dl (1.8-2.4); Phosphorus 2.4 mg/dl (2.5-4.9); Potassium 1.6 mmol/L (3.5-5.1); Sodium 145 mmol/L (136-145); Total Protein 5.8 gm/dl (6.4-8.2)
[2019-07-02] MEDS ORDERED: ONDANSETRON INJ 2 MG/ML 2 ML VIAL IV PRN (08:39)
[2019-07-02] MEDS ORDERED: POTASSIUM PHOS 3 MMOL/1 ML INFUSION IV SCH (09:00)
[2019-07-02] MEDS: INSULIN ASPART 100 UNITS/ML 3 ML PEN SC SCH ×4 (09:35→21:27)
[2019-07-02] MEDS: NICOTINE 14 MG/24 HR PATCH TD SCH (09:36)
[2019-07-02] MEDS: POTASSIUM CHLORIDE 40 MEQ in SODIUM CHLORIDE 0.9% 1000ML 1,000 ML IV SCH ×2 (09:36→21:19)
[2019-07-02] MEDS: GABAPENTIN 300 MG CAP PO SCH ×3 (09:37→21:26)
[2019-07-02] MEDS: TOPIRAMATE 100 MG TAB PO SCH ×2 (09:37→21:27)
[2019-07-02] MEDS: PANTOprazole 40 MG TAB PO SCH (09:37)
[2019-07-02] MEDS: POTASSIUM CHLORIDE 20 MEQ/15 ML UDC PO SCH ×3 (10:06→21:23)
[2019-07-02] MEDS ORDERED: LOPERAMIDE HCL 2 MG CAP PO PRN (13:04)
[2019-07-02] MEDS ORDERED: ALPRAZolam 0.5 MG TABLET PO STA (13:04)
[2019-07-02 14:49] LABS: Potassium 3.1 mmol/L (3.5-5.1)
[2019-07-02 14:50] LABS: Calcium 7.8 mg/dl (8.5-10.1); Creatinine Clr Calc Pharmacy 86.9 ml/min; Est GFR (African American) 90.7; Est GFR (Non-African American) 78.2; Phosphorus 2.5 mg/dl (2.5-4.9)
--- NOTE | 2019-07-02 15:41 | Hospitalist Progress Note ---
Date of Service July 02, 2019 Assessment & Plan (1) Hypokalemia: profound due to GI losses K was 1.5 on admission, only up to 1.6 after IV replacement aggressive replacement with 40mEq K riders, 40mEq in IV fluids at 100cc/hr 40mg PO elixir TID K up to 3.1 this afternoon will back off on PO elixir to 20 TID repeat BMP in the morning low K explains why she is so weak (2) C. 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 (6) Microscopic colitis: History of microscopic colitis according to last colonoscopy report- Last year now with 12 weeks of diarrhea GI following, appreciate recommendations (7) Dehydration: continue NSS + 40mEq of K at 100cc/hr (8) Depression with anxiety: Continue home medications, Xanax PRN (9) RLS (restless legs syndrome): Continue with home meds. (10) Insomnia: (11) Current smoker: Smoking cessation advised. Advised nicotine patch. (12) Fatigue: (13) Diffuse abdominal pain: (14) Low back pain: (15) Migraines: Imitrex given today for severe headache (16) DVT prophylaxis: Add subcu heparin. (17) Hypomagnesemia: resolved this morning after replacement Subjective patient feeling very weak and fatigued reports ongoing diarrhea for maybe 12 weeks h/o c diff, had a fecal transplant, required a second transplant but never could go no blood in diarrhea, just appears yellow associated with abdominal pain she follows with Dr. Flores had diarrhea all day today, poor appetite labs showed K of 1.6 this morning, aggressive replacement IV and PO ordered, up to 3.1 this afternoon cr stable, normal CBC vitals stable discussed with Dr. Duncan, appreciate his input C diff still pending at this time Review of Systems Review of Systems: All systems reviewed & are unremarkable except as noted in HPI & below Respiratory: no cough and no dyspnea Cardiovascular: no chest pain, no palpitations, no syncope and no edema Gastrointestinal: + abdominal pain and + diarrhea/loose stools (every day for 10-12 weeks); no nausea, no vomiting, no constipation, no blood in stools and no melena Physical Exam Constitutional: WD/WN, vitals as above + overweight Eyes: PERRL, conjunctivae normal, anicteric sclerae ENMT: external ear and nose normal, oropharynx normal Neck: trachea midline, no thyromegaly Respiratory: normal respiratory effort, lungs clear to auscultation Cardiovascular: RRR, no murmur, no edema Gastrointestinal (Abdomen): Inspection/Auscultation: + abdomen distended and normal bowel sounds Percussion/Palpation: + abdomen tender (slightly) and abdomen soft; no guarding, abdomen not rigid and no hepatosplenomegaly Musculoskeletal: no cyanosis or clubbing, extremities motor strength 5/5 Skin: no rashes, warm and dry Neurologic: patellar DTR's 2+ bilat, sensation intact and PERRL, EOMI, accommodation nl, no face palsy, no dysarthria Psychiatric: Orientation: alert and oriented x 3 Affect: + anxious affect Lymphatic: no cervical or axillary lymphadenopathy Results & Data Vital Signs (Past 12 Hours) Vital Signs Temp Pulse Pulse Pulse Resp BP Pulse Ox 07/02/19 15:26 36.6 C 82 18 138/92 96 07/02/19 11:15 37.0 C 80 20 117/73 95 07/02/19 08:00 80 07/02/19 07:30 37.2 C 78 18 105/68 94 07/02/19 04:28 37.2 C 85 20 97/63 L 95 Laboratory Results Laboratory Results - last 24 hr 07/01/19 07/01/19 07/02/19 14:34 20:14 05:59 WBC 7.03 RBC 3.95 L Hgb 12.3 Hct 35.9 L MCV 90.9 MCH 31.1 MCHC 34.3 RDW Std Deviation 48.4 H RDW Coeff of Nicki 14.6 H Plt Count 322 MPV 9.8 Sodium Potassium Chloride Carbon Dioxide Anion Gap BUN Creatinine Est Cr Clr Drug Dosing Est GFR ( Amer) Est GFR (Non-Af Amer) BUN/Creatinine Ratio Glucose POC Glucose 141 H Calcium Phosphorus 1.3 L* Magnesium Total Bilirubin Direct Bilirubin AST ALT Alkaline Phosphatase Total Protein Albumin Globulin Albumin/Globulin Ratio 10/07/02/19 07/02/19 05:59 05:59 07:27 WBC RBC Hgb Hct MCV MCH MCHC RDW Std Deviation RDW Coeff of Nicki Plt Count MPV Sodium 145 Potassium 1.6 L* Chloride 113 H Carbon Dioxide 25 Anion Gap 7.0 BUN 6 L Creatinine 0.66 Est Cr Clr Drug Dosing 115.9 Est GFR ( Amer) 121.9 Est GFR (Non-Af Amer) 105.2 BUN/Creatinine Ratio 9.1 L Glucose 118 H POC Glucose 173 H Calcium 7.5 L D Phosphorus 2.4 L D Cancelled Magnesium 1.8 Total Bilirubin 0.4 Direct Bilirubin < 0.1 AST 63 H ALT 21 Alkaline Phosphatase 83 Total Protein 5.8 L D Albumin 2.7 L Globulin 3.1 Albumin/Globulin Ratio 0.9 07/02/19 07/02/19 11:14 14:14 WBC RBC Hgb Hct MCV MCH MCHC RDW Std Deviation RDW Coeff of Nicki Plt Count MPV Sodium 146 H Potassium 3.1 L D Chloride 115 H Carbon Dioxide 23 Anion Gap 8.0 BUN 5 L Creatinine 0.88 Est Cr Clr Drug Dosing 86.9 Est GFR ( Amer) 90.7 Est GFR (Non-Af Amer) 78.2 BUN/Creatinine Ratio 6.0 L Glucose 156 H POC Glucose 194 H Calcium 7.8 L Phosphorus 2.5 Magnesium 2.0 Total Bilirubin Direct Bilirubin AST ALT Alkaline Phosphatase Total Protein Albumin Globulin Albumin/Globulin Ratio Medications Administered Current Inpatient Medications Acetaminophen (Tylenol) 650 mg PO Q4H PRN PRN Reason: Pain or Fever Stop: 07/31/19 18:22 Al Hydrox/Mg Hydrox/Simethicone (Maalox) 15 ml PO Q4H PRN PRN Reason: Dyspepsia Stop: 07/31/19 18:22 Alprazolam (Xanax) 0.5 mg PO HS [facility] Stop: 07/31/19 20:59 Last Admin: 07/01/19 21:46 Dose: 0.5 mg Documented by: Baclofen (Lioresal) 40 mg PO HS [facility] Stop: 08/01/19 20:59 Duloxetine HCl (Cymbalta) 60 mg PO HS [facility] Stop: 07/31/19 20:59 Last Admin: 07/01/19 21:50 Dose: 60 mg Documented by: Gabapentin (Neurontin) 900 mg PO TID [facility] Stop: 07/31/19 20:59 Last Admin: 07/02/19 14:10 Dose: 900 mg Documented by: Heparin Sodium (Porcine) (Heparin Sodium (Porcine)) 5,000 units SQ Q8 [facility] Stop: 07/31/19 21:59 Last Admin: 07/02/19 14:45 Dose: Not Given Documented by: Potassium Chloride 40 meq/ (Sodium Chloride) 1,020 mls @ 100 mls/hr IV .[id number] [facility] Stop: 08/01/19 07:59 Last Admin: 07/02/19 09:36 Dose: 100 mls/hr Documented by: Insulin Aspart (Novolog Flexpen) 0 units SC ACHS [facility] Stop: 07/31/19 20:59 Last Admin: 07/02/19 14:41 Dose: Not Given Documented by: Magnesium Hydroxide (Milk Of Magnesia) 30 ml PO Q12H PRN PRN Reason: Constipation Stop: 07/31/19 18:22 Miscellaneous (Remove Nicoderm Patch) 1 ea N/A HS PRN PRN Reason: Insomnia Stop: 07/31/19 20:59 Nicotine (Nicoderm Cq) 14 mg TD QAM [facility] Stop: 07/31/19 18:59 Last Admin: 07/02/19 09:36 Dose: 14 mg Documented by: Ondansetron HCl (Zofran) 4 mg IV Q4H PRN PRN Reason: Nausea Stop: 07/31/19 18:22 Last Admin: 07/02/19 10:10 Dose: 4 mg Documented by: Pantoprazole Sodium (Protonix) 40 mg PO DAILY [facility] Stop: 08/01/19 08:59 Last Admin: 07/02/19 09:37 Dose: 40 mg Documented by: Potassium Chloride (Rayna Ciel Elix) 40 meq PO TID [facility] Stop: 08/01/19 08:59 Last Admin: 07/02/19 14:09 Dose: 40 meq Documented by: Promethazine HCl (Phenergan) 25 mg PO TID PRN PRN Reason: nausea and vomiting Stop: 07/31/19 18:22 Quetiapine Fumarate (Seroquel) 400 mg PO HS [facility] Stop: 07/31/19 20:59 Last Admin: 07/01/19 21:52 Dose: 400 mg Documented by: Raspberry (Raspberry) 5 ml PO Q6H [facility] Stop: 07/15/19 18:59 Last Admin: 07/02/19 13:00 Dose: 5 ml Documented by: Ropinirole HCl (Requip) 8 mg PO HS [facility] Stop: 07/31/19 20:59 Last Admin: 07/01/19 21:52 Dose: 8 mg Documented by: Topiramate (Topamax) 100 mg PO QAM [facility] Stop: 08/01/19 08:59 Last Admin: 07/02/19 09:37 Dose: 100 mg Documented by: Topiramate (Topamax) 200 mg PO QPM [facility] Stop: 07/31/19 20:59 Last Admin: 07/01/19 21:49 Dose: 200 mg Documented by: Vancomycin HCl (Vancomycin Hcl) 250 mg PO Q6H [facility] Stop: 07/11/19 18:59 Last Admin: 07/02/19 13:00 Dose: 250 mg Documented by: Zolpidem Tartrate (Ambien) 10 mg PO HS [facility] Stop: 07/31/19 20:59 Last Admin: 07/01/19 21:46 Dose: 10 mg Documented by: PG Care Time/CCT Total # of Minutes Spent Total Time Spent with Patient: Total time spent is greater than 50% in coordination of care (as documented) at patient's floor/unit and/or counseling patient: (1) Diabetes mellitus Diabetes mellitus complication detail: with polyneuropathy Diabetes mellitus complication status: with neurologic complications Diabetes mellitus senior care insulin use: with senior user experience architect use Diabetes mellitus type: type 2 Qualified Code(s): E11.42 - Type 2 diabetes mellitus with diabetic polyneuropathy; Z79.4 - custodial (current) use of insulin (2) Chronic pain Chronic pain type: other chronic pain Qualified Code(s): G89.29 - Other chronic pain (3) Migraines Intractability: not intractable Migraine type: without aura Status migrainosus presence: without status migrainosus Qualified Code(s): G43.009 - Migraine without aura, not intractable, without status migrainosus (4) Microscopic colitis Microscopic colitis type: unspecified Qualified Code(s): K52.839 - Microscopic colitis, unspecified
--- NOTE | 2019-07-02 17:04 | Consultation Report ---
DATE OF CONSULTATION: 07/02/2019 REASON FOR EVALUATION: Diarrhea. HISTORY OF PRESENT ILLNESS: The patient is a 48-year-old who has had multiple episodes of diarrhea over the last few years with multiple evaluations and colonoscopies. She was diagnosed with C. diff in the past and received fecal transplants. She had a colonoscopy that showed some acute inflammation, but no signs of inflammatory bowel disease or ischemia. This acute inflammation was attributed to infection probably from C. diff. The patient has been falling recently and has electrolyte abnormalities and dehydration. She reports that she has up to 10 loose bowel movements a day particularly after eating. There is no particular problem with dairy products that she has been able to identify. She has been taking loperamide as an outpatient. She has had no fevers or night sweats or visible blood in her stools. She has not recently had a stool for C. diff that was positive and there is no evidence of collagenous or lymphocytic colitis on biopsies in the past that can be documented. At one point, she was diagnosed with irritable bowel. So far, stool for bacterial pathogens has been presented to the lab and is pending. PAST MEDICAL HISTORY: Remarkable for depression, anxiety, diabetes, migraines, back pain, restless leg syndrome. She has had a and an endometrial ablation. MEDICATIONS: Per list. ALLERGIES: ADHESIVES. FAMILY HISTORY: Mother has elevated cholesterol, hypertension. Father has elevated cholesterol, hypertension and prostate cancer. SOCIAL HISTORY: The patient is . She is unemployed. She has an 8-year-old daughter. She smokes daily. No alcohol. REVIEW OF SYSTEMS: Positive for abdominal pain, diarrhea, weakness, fatigue. PHYSICAL EXAMINATION: GENERAL: The patient appears awake, alert, in no acute distress. VITAL SIGNS: Blood pressure is 153/90, pulse 70. ABDOMEN: Shows low transverse scar well healed. There is some tenderness in the upper abdomen. No mass or rebound. IMPRESSION AND PLAN: The patient is having diarrhea. It is possibly infectious. I plan checking the stool for bacterial pathogens, which has already been in the lab culturing. We will send the stool for C. diff and fecal leukocytes. I suspect that she may have underlying irritable bowel. Any further recommendations will be based on the results of the stool tests.
[2019-07-02] MEDS ORDERED: SUMAtriptan succinate 100 MG TAB PO ONE (18:45)
[2019-07-02] MEDS ORDERED: BACLOFEN 20 MG TAB PO SCH (21:00)
[2019-07-02] MEDS: ROPINIROLE HCL 1 MG TABLET PO SCH (21:25)
[2019-07-02] MEDS: DULOXETINE HCL 60 MG CAP PO SCH (21:26)
[2019-07-02] MEDS: ZOLPIDEM TARTRATE 10 MG TAB PO SCH (21:28)
[2019-07-02] MEDS: QUETIAPINE FUMARATE 200 MG TAB PO SCH (21:28)
[2019-07-02] MEDS: ALPRAZolam 0.5 MG TABLET PO SCH (21:28)
[2019-07-03] MEDS: VANCOMYCIN HCL 250 MG/5 ML SOLN PO SCH ×3 (01:17→14:19)
[2019-07-03] MEDS: RASPBERRY SYRUP 5 ML UDP PO SCH ×3 (01:17→14:19)
[2019-07-03] MEDS: HEPARIN SOD 5,000 UNIT/0.5 ML VIAL SQ SCH ×3 (06:05→21:24)
[2019-07-03] MEDS: POTASSIUM CHLORIDE 40 MEQ in SODIUM CHLORIDE 0.9% 1000ML 1,000 ML IV SCH ×2 (06:35→17:19)
[2019-07-03 07:10] LABS: Basophils # (auto) 0.01 K/uL (0-0.2); Basophils % (auto) 0.2 %; Eosinophils # (auto) 0.18 K/uL (0-0.5); Eosinophils % (auto) 3.1 %; Hematocrit (blood only) 35.8 % (37-47); Hemoglobin 12.5 g/dL (12.0-16.0); Immature Granulocytes # (auto) 0.02 K/uL (0.00-0.02); Immature Granulocytes % (auto) 0.3 %; Lymphocytes # (auto) 2.29 K/uL (1.2-3.4); Lymphocytes % (auto) 39.1 %; Mean Corpuscular Hemoglobin 31.4 pg (25-34); Mean Corpuscular Hgb Conc 34.9 g/dL (32-36); Mean Corpuscular Volume 89.9 fL (80-100); Mean Platelet Volume 10.1 fL (7.4-10.4); Monocytes # (auto) 0.31 K/uL (0.11-0.59); Monocytes % (auto) 5.3 %; Neutrophils # (auto) 3.04 K/uL (1.4-6.5); Platelet Count 305 K/uL (130-400); RDW Coefficient of Variation 14.9 % (11.5-14.5); RDW Standard Deviation 48.8 fL (36.4-46.3); Red Blood Count 3.98 M/uL (4.2-5.4); White Blood Count 5.85 K/uL (4.8-10.8)
[2019-07-03 07:53] LABS: Creatinine Clr Calc Pharmacy 138.3 ml/min; Est GFR (African American) 128.7
[2019-07-03] MEDS: GABAPENTIN 300 MG CAP PO SCH ×3 (08:27→21:20)
[2019-07-03] MEDS: NICOTINE 14 MG/24 HR PATCH TD SCH (08:28)
[2019-07-03] MEDS: PANTOprazole 40 MG TAB PO SCH (08:28)
[2019-07-03] MEDS: POTASSIUM CHLORIDE 20 MEQ/15 ML UDC PO SCH ×3 (08:28→21:20)
[2019-07-03] MEDS: POTASSIUM CHLORIDE / WTR 10 MEQ/100 ML PLCT IV SCH ×4 (08:49→14:25)
[2019-07-03] MEDS ORDERED: POTASSIUM CHLORIDE 20 MEQ/15 ML UDC PO SCH (09:00)
[2019-07-03] MEDS: INSULIN ASPART 100 UNITS/ML 3 ML PEN SC SCH ×4 (10:04→21:19)
[2019-07-03] MEDS: TOPIRAMATE 100 MG TAB PO SCH ×2 (10:04→21:25)
[2019-07-03] MEDS ORDERED: LOPERAMIDE HCL 2 MG CAP PO PRN (13:52)
[2019-07-03] MEDS ORDERED: BUDESONIDE EC 3 MG CAP PO SCH (14:30)
[2019-07-03 15:25] LABS: BUN Creatinine Ratio 4.5 (10-20); Calcium 8.2 mg/dl (8.5-10.1); Creatinine Clr Calc Pharmacy 99.3 ml/min; Est GFR (African American) 104.9; Est GFR (Non-African American) 90.5; Potassium 2.5 mmol/L (3.5-5.1)
--- NOTE | 2019-07-03 16:10 | Hospitalist Progress Note ---
Date of Service July 03, 2019 Assessment & Plan (1) Hypokalemia: profound due to GI losses K was 1.5 on admission, up to 3.1, then down to 2.0 this morning 40mEq IV in K riders, 40mEq PO TID and 40mEq in IV fluids K up to 2.5 this afternoon repeat in the morning low K explains why she is so weak (2) Irritable bowel syndrome: most likely explanation for symptoms of abdominal pain, cramping, frequent diarrhea she says that eating triggers her bowels to move 15 minutes later add Bentyl BID, Imodium stop Vanco PO as C diff was negative (3) Hypomagnesemia: resolved (4) C. 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 (8) Microscopic colitis: History of microscopic colitis according to last colonoscopy report- Last year d/w Dr. Duncan, biopsies did not really show microscopic colitis no role for Budesonide at this time (9) Dehydration: continue NSS + 40mEq of K at 100cc/hr since she has persistent diarrhea, not eating well (10) Depression with anxiety: Continue home medications, Xanax PRN (11) RLS (restless legs syndrome): Continue with home meds. (12) Insomnia: (13) Current smoker: Smoking cessation advised. Advised nicotine patch. (14) Fatigue: (15) Diffuse abdominal pain: (16) Low back pain: (17) Migraines: Imitrex PRN (18) DVT prophylaxis: Add subcu heparin. Subjective patient still with a lot of diarrhea she says it smells like C diff, however, I informed her that C diff testing was negative she still gets right sided abdominal pain, cramping in nature discussed with Dr. Duncan, he reviewed her prior work ups, not much evidence for microscopic colitis he feels that she has irritible bowel syndrome at this time reviewed labs, K low at 2.0 this morning, replaced aggressively, up to 2.5 this afternoon patient having issues with her neck, c/o stiffness, pain, weakness cannot raise her arms above shoulder level due to pain in neck and weakness discussed that the CT of her cervical spine was normal on admission Review of Systems Review of Systems: All systems reviewed & are unremarkable except as noted in HPI & below Gastrointestinal: + abdominal pain and + diarrhea/loose stools; no nausea, no vomiting, no constipation and no blood in stools Musculoskeletal: + neck pain and + muscle weakness (arms, neck) Physical Exam Constitutional: WD/WN, vitals as above + overweight Eyes: PERRL, conjunctivae normal, anicteric sclerae ENMT: external ear and nose normal, oropharynx normal Neck: trachea midline, no thyromegaly (paraspinal muscle tenderness, increased tension) Respiratory: normal respiratory effort, lungs clear to auscultation Cardiovascular: RRR, no murmur, no edema Gastrointestinal (Abdomen): Inspection/Auscultation: + abdomen distended and normal bowel sounds Percussion/Palpation: + abdomen tender (slightly) and abdomen soft; no guarding, abdomen not rigid and no hepatosplenomegaly Musculoskeletal: no cyanosis or clubbing, extremities motor strength 5/5 Skin: no rashes, warm and dry Neurologic: patellar DTR's 2+ bilat, sensation intact and PERRL, EOMI, accommodation nl, no face palsy, no dysarthria Psychiatric: Orientation: alert and oriented x 3 Affect: + anxious affect Lymphatic: no cervical or axillary lymphadenopathy Results & Data Vital Signs (Past 12 Hours) Vital Signs Temp Pulse Pulse Resp BP BP Pulse Ox 07/03/19 15:18 36.5 C 64 14 154/95 H 100 07/03/19 11:30 36.7 C 81 18 121/79 96 07/03/19 08:00 78 07/03/19 07:41 37.2 C 82 18 115/74 97 Laboratory Results Laboratory Results - last 24 hr 07/02/19 07/02/19 07/02/19 16:15 20:03 21:14 WBC RBC Hgb Hct MCV MCH MCHC RDW Std Deviation RDW Coeff of Nicki Plt Count MPV Immature Gran % (Auto) Neut % (Auto) Lymph % (Auto) [place] % (Auto) Eos % (Auto) Baso % (Auto) Immature Gran # (Auto) Neut # (Auto) Lymph # (Auto) [place] # (Auto) Eos # (Auto) Baso # (Auto) Sodium Potassium Chloride Carbon Dioxide Anion Gap BUN Creatinine Est Cr Clr Drug Dosing Est GFR ( Amer) Est GFR (Non-Af Amer) BUN/Creatinine Ratio Glucose POC Glucose 142 H 154 H Calcium Stl C. diff Tox B Gene Negative Cdiff Gene 07/03/19 07/03/19 07/03/19 06:22 06:22 07:42 WBC 5.85 RBC 3.98 L Hgb 12.5 Hct 35.8 L MCV 89.9 MCH 31.4 MCHC 34.9 RDW Std Deviation 48.8 H RDW Coeff of Nicki 14.9 H Plt Count 305 MPV 10.1 Immature Gran % (Auto) 0.3 Neut % (Auto) 52.0 Lymph % (Auto) 39.1 [place] % (Auto) 5.3 Eos % (Auto) 3.1 Baso % (Auto) 0.2 Immature Gran # (Auto) 0.02 Neut # (Auto) 3.04 Lymph # (Auto) 2.29 [place] # (Auto) 0.31 Eos # (Auto) 0.18 Baso # (Auto) 0.01 Sodium 147 H Potassium 2.0 L* D Chloride 115 H Carbon Dioxide 25 Anion Gap 8.0 BUN 4 L Creatinine 0.56 L D Est Cr Clr Drug Dosing 138.3 Est GFR ( Amer) 128.7 Est GFR (Non-Af Amer) 111.0 BUN/Creatinine Ratio 7.0 L Glucose 134 H POC Glucose 167 H Calcium 8.0 L Stl C. diff Tox B Gene 07/03/19 07/03/19 11:31 13:56 WBC RBC Hgb Hct MCV MCH MCHC RDW Std Deviation RDW Coeff of Nicki Plt Count MPV Immature Gran % (Auto) Neut % (Auto) Lymph % (Auto) [place] % (Auto) Eos % (Auto) Baso % (Auto) Immature Gran # (Auto) Neut # (Auto) Lymph # (Auto) [place] # (Auto) Eos # (Auto) Baso # (Auto) Sodium 144 Potassium 2.5 L* D Chloride 114 H Carbon Dioxide 23 Anion Gap 7.0 BUN 4 L Creatinine 0.78 Est Cr Clr Drug Dosing 99.3 Est GFR ( Amer) 104.9 Est GFR (Non-Af Amer) 90.5 BUN/Creatinine Ratio 4.5 L Glucose 205 H POC Glucose 259 H Calcium 8.2 L Stl C. diff Tox B Gene Medications Administered Current Inpatient Medications Acetaminophen (Tylenol) 650 mg PO Q4H PRN PRN Reason: Pain or Fever Stop: 07/31/19 18:22 Al Hydrox/Mg Hydrox/Simethicone (Maalox) 15 ml PO Q4H PRN PRN Reason: Dyspepsia Stop: 07/31/19 18:22 Alprazolam (Xanax) 0.5 mg PO HS [facility] Stop: 07/31/19 20:59 Last Admin: 07/02/19 21:28 Dose: 0.5 mg Documented by: Baclofen (Lioresal) 40 mg PO HS [facility] Stop: 08/01/19 20:59 Last Admin: 07/02/19 21:26 Dose: 40 mg Documented by: Baclofen (Lioresal) 20 mg PO BID [facility] Stop: 08/02/19 20:59 Budesonide (Entocort Ec) 9 mg PO QAM [facility] Stop: 08/02/19 14:29 Duloxetine HCl (Cymbalta) 60 mg PO HS [facility] Stop: 07/31/19 20:59 Last Admin: 07/02/19 21:26 Dose: 60 mg Documented by: Gabapentin (Neurontin) 900 mg PO TID [facility] Stop: 07/31/19 20:59 Last Admin: 07/03/19 15:36 Dose: 900 mg Documented by: Heparin Sodium (Porcine) (Heparin Sodium (Porcine)) 5,000 units SQ Q8 [facility] Stop: 07/31/19 21:59 Last Admin: 07/03/19 14:25 Dose: 5,000 units Documented by: Potassium Chloride 40 meq/ (Sodium Chloride) 1,020 mls @ 100 mls/hr IV .[id number] [facility] Stop: 08/01/19 07:59 Last Admin: 07/03/19 06:35 Dose: 100 mls/hr Documented by: Insulin Aspart (Novolog Flexpen) 0 units SC ACHS [facility] Stop: 07/31/19 20:59 Last Admin: 07/03/19 12:56 Dose: 7 units Documented by: Loperamide HCl (Imodium) 2 mg PO Q6 PRN PRN Reason: Diarrhea Stop: 08/02/19 13:51 Last Admin: 07/03/19 15:43 Dose: 2 mg Documented by: Magnesium Hydroxide (Milk Of Magnesia) 30 ml PO Q12H PRN PRN Reason: Constipation Stop: 07/31/19 18:22 Miscellaneous (Remove Nicoderm Patch) 1 ea N/A HS PRN PRN Reason: Insomnia Stop: 07/31/19 20:59 Nicotine (Nicoderm Cq) 14 mg TD QAM [facility] Stop: 07/31/19 18:59 Last Admin: 07/03/19 08:28 Dose: 14 mg Documented by: Ondansetron HCl (Zofran) 4 mg IV Q4H PRN PRN Reason: Nausea Stop: 07/31/19 18:22 Last Admin: 07/02/19 10:10 Dose: 4 mg Documented by: Pantoprazole Sodium (Protonix) 40 mg PO DAILY [facility] Stop: 08/01/19 08:59 Last Admin: 07/03/19 08:28 Dose: 40 mg Documented by: Potassium Chloride (Rayna Ciel Elix) 40 meq PO TID [facility] Stop: 08/02/19 08:59 Last Admin: 07/03/19 14:26 Dose: 40 meq Documented by: Promethazine HCl (Phenergan) 25 mg PO TID PRN PRN Reason: nausea and vomiting Stop: 07/31/19 18:22 Last Admin: 07/02/19 21:28 Dose: 25 mg Documented by: Quetiapine Fumarate (Seroquel) 400 mg PO [facility] Stop: 07/31/19 20:59 Last Admin: 07/02/19 21:28 Dose: 400 mg Documented by: Ropinirole HCl (Requip) 8 mg PO [facility] Stop: 07/31/19 20:59 Last Admin: 07/02/19 21:25 Dose: 8 mg Documented by: Tizanidine HCl (Zanaflex) 2 mg PO TID [facility] Stop: 08/02/19 20:59 Topiramate (Topamax) 100 mg PO QAM [facility] Stop: 08/01/19 08:59 Last Admin: 07/03/19 10:04 Dose: 100 mg Documented by: Topiramate (Topamax) 200 mg PO QPM [facility] Stop: 07/31/19 20:59 Last Admin: 07/02/19 21:27 Dose: 200 mg Documented by: Zolpidem Tartrate (Ambien) 10 mg PO HS [facility] Stop: 07/31/19 20:59 Last Admin: 07/02/19 21:28 Dose: 10 mg Documented by: PG Care Time/CCT Total # of Minutes Spent Total Time Spent with Patient: Total time spent is greater than 50% in coordination of care (as documented) at patient's floor/unit and/or counseling patient: (1) Diabetes mellitus Diabetes mellitus complication detail: with polyneuropathy Diabetes mellitus complication status: with neurologic complications Diabetes mellitus mcc insulin use: with mcc use Diabetes mellitus type: type 2 Qualified Code(s): E11.42 - Type 2 diabetes mellitus with diabetic polyneuropathy; Z79.4 - skilled nursing (current) use of insulin (2) Chronic pain Chronic pain type: other chronic pain Qualified Code(s): G89.29 - Other chronic pain (3) Migraines Intractability: not intractable Migraine type: without aura Status migrainosus presence: without status migrainosus Qualified Code(s): G43.009 - Migraine without aura, not intractable, without status migrainosus (4) Microscopic colitis Microscopic colitis type: unspecified Qualified Code(s): K52.839 - Microscopic colitis, unspecified
--- NOTE | 2019-07-03 17:03 | Progress Note ---
DATE: 07/03/2019 SUBJECTIVE: The patient reports that her abdominal pain is somewhat better today. Her stools are starting to become a little more solid. PHYSICAL EXAMINATION: GENERAL: The patient appears in no acute distress. VITAL SIGNS: Blood pressure is 154/95, pulse 64. She is afebrile at 36.5. ABDOMEN: Soft. There is mild diffuse tenderness throughout the abdomen, a little bit of bruising. Stool for C. diff is negative. White count is normal. There are no fecal leukocytes and stool for bacterial pathogens is no growth so far. Her electrolytes are still a little bit abnormal with a potassium of 2.5, but otherwise she is improving. IMPRESSION: I believe the patient's symptoms are most likely related to irritable bowel. There is no endoscopic or imaging pathology in the colon and her stool studies are all returning negative. She is currently on Imodium as needed. I plan on adding Bentyl 20 mg q. 6 hours as needed for spasm. She is eager to be discharged and hopefully with correction of her potassium, she should be able to go home hopefully tomorrow.
[2019-07-03] MEDS: DICYCLOMINE HCL 20 MG TAB PO PRN (19:33)
[2019-07-03] MEDS: ZOLPIDEM TARTRATE 10 MG TAB PO SCH (21:16)
[2019-07-03] MEDS: ALPRAZolam 0.5 MG TABLET PO SCH (21:16)
[2019-07-03] MEDS: TIZANIDINE HCL 4 MG TABLET PO SCH (21:17)
[2019-07-03] MEDS: ROPINIROLE HCL 1 MG TABLET PO SCH (21:21)
[2019-07-03] MEDS: QUETIAPINE FUMARATE 200 MG TAB PO SCH (21:22)
[2019-07-03] MEDS: BACLOFEN 20 MG TAB PO SCH (21:23)
[2019-07-03] MEDS: DULOXETINE HCL 60 MG CAP PO SCH (21:26)
[2019-07-04] MEDS: POTASSIUM CHLORIDE 40 MEQ in SODIUM CHLORIDE 0.9% 1000ML 1,000 ML IV SCH (04:00)
[2019-07-04] MEDS: HEPARIN SOD 5,000 UNIT/0.5 ML VIAL SQ SCH (06:03)
[2019-07-04 06:57] LABS: BUN Creatinine Ratio 5.1 (10-20); Calcium 7.6 mg/dl (8.5-10.1); Creatinine Clr Calc Pharmacy 140.9 ml/min; Est GFR (African American) 129.5; Est GFR (Non-African American) 111.7; Potassium 2.8 mmol/L (3.5-5.1)
[2019-07-04] MEDS: PANTOprazole 40 MG TAB PO SCH (09:30)
[2019-07-04] MEDS: TIZANIDINE HCL 4 MG TABLET PO SCH (09:30)
[2019-07-04] MEDS: GABAPENTIN 300 MG CAP PO SCH (09:30)
[2019-07-04] MEDS: BACLOFEN 20 MG TAB PO SCH (09:30)
[2019-07-04] MEDS: TOPIRAMATE 100 MG TAB PO SCH (09:30)
[2019-07-04] MEDS: NICOTINE 14 MG/24 HR PATCH TD SCH (09:32)
[2019-07-04] MEDS: POTASSIUM CHLORIDE 20 MEQ/15 ML UDC PO SCH (09:32)
[2019-07-04] MEDS: INSULIN ASPART 100 UNITS/ML 3 ML PEN SC SCH (09:33)
[2019-07-04] MEDS: DICYCLOMINE HCL 20 MG TAB PO PRN (09:39)
--- NOTE | 2019-07-04 09:53 | Discharge Summary ---
Date of Service July 04, 2019 Admission HPI Per Admitting Provider The patient is 48-year-old female who has a history of C. difficile colitis last August. She went to [facility] for fecal transplant. Now the patient is complaining of increasing diarrhea for the last 7 weeks. She denies any blood in the stool. She has nausea and occasional vomiting and occasional abdominal cramps. The patient is complained of generalized weakness getting worse for the last 4 days. She has frequent falls over the last 4 days. She fell 3 times today. The further work-up done in the ER showed that patient potassium is 1.5. She was started on potassium supplements and will be admitted for further evaluation and management. Principal Diagnosis Chronic diarrhea due to irritable bowel syndrome Discharge Exam Constitutional WD/WN, vitals as above + overweight Eyes PERRL, conjunctivae normal, anicteric sclerae ENMT external ear and nose normal, oropharynx normal Neck trachea midline, no thyromegaly (paraspinal muscle tenderness, increased tension) Respiratory normal respiratory effort, lungs clear to auscultation Cardiovascular RRR, no murmur, no edema Gastrointestinal (Abdomen) Inspection/Auscultation: abdomen normal to inspection and normal bowel sounds Percussion/Palpation: abdomen soft; abdomen nontender, no guarding, abdomen not rigid and no hepatosplenomegaly Musculoskeletal no cyanosis or clubbing, extremities motor strength 5/5 Skin no rashes, warm and dry Neurologic patellar DTR's 2+ bilat, sensation intact and PERRL, EOMI, accommodation nl, no face palsy, no dysarthria Psychiatric Orientation: alert and oriented x 3 Affect: + anxious affect Lymphatic no cervical or axillary lymphadenopathy Discharge Data Allergies Allergy/AdvReac Type Severity Reaction Status Date / Time No Known Drug Allergies Allergy Unknown NONE Verified 07/01/19 15:07 adhesive AdvReac Mild "Paper Verified 07/01/19 15:07 tape" -- rash Consultations 07/01/19 16:47 ED Decision to Admit Stat 07/02/19 08:36 Consult Gastroenterology Routine Ordered Studies 07/01/19 14:33 CT abd pelvis IV con only Stat CT cervical spine wo con Stat CT chest w con Stat CT head/brain wo con Stat CT lumbar spine wo con Stat CT thoracic spine wo con Stat Hospital Course (1) Hypokalemia: profound due to GI losses K was 1.5 on admission, up to 3.1, then down to 2.0 yesterday up to 2.8 today will d/c home on KCl 40mEq BID recommend BMP on Sunday 07/08 with results to PCP low K explains why she is so weak (2) Irritable bowel syndrome: most likely explanation for symptoms of abdominal pain, cramping, frequent diarrhea she says that eating triggers her bowels to move 15 minutes later add Bentyl BID, Imodium stop Vanco PO as C diff was negative plan: continue Bentyl 20mg q6 PRN for abdominal pain/diarrhea recommend that she uses it scheduled the next few days and then PRN after the weekend can also use Imodium PRN follow up with PCP in a week and then [facility] in 2-3 weeks (3) Hypomagnesemia: resolved (4) C. 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 (8) Microscopic colitis: History of microscopic colitis according to last colonoscopy report- Last year d/w Dr. Duncan, biopsies did not really show microscopic colitis no role for Budesonide at this time (9) Dehydration: continue NSS + 40mEq of K at 100cc/hr since she has persistent diarrhea, not eating well (10) Depression with anxiety: Continue home medications, Xanax PRN (11) RLS (restless legs syndrome): Continue with home meds. (12) Insomnia: (13) Current smoker: Smoking cessation advised. Advised nicotine patch. (14) Fatigue: (15) Diffuse abdominal pain: (16) Low back pain: increase spasms in low back as well as neck increased Baclofen to BID (17) Migraines: Imitrex PRN (18) DVT prophylaxis: Add subcu heparin. Total Time Total Time Spent Total Time Spent (In Minutes): 35 minutes Total Time Includes: Examination of the Patient, Discharge Planning, Medication Reconciliation and Communication With Other Providers (Dr. Duncan) Discharge Plan Discharge Items Patient Disposition: Home - Self-Care Reason For Visit: HYPOKALEMIA DIARRHEA WEAKNESS Discharge Diagnosis: Irritable bowel syndrome, diarrhea predominant Hypokalemia due to GI losses Muscle spasms in neck Condition on Discharge: Good Goals: improve control of diarrhea monitor potassium levels Activity: Resume your previous activity Non-emergency contact: Primary Care Provider Call non-emergency contact if: you have any medication questions, your symptoms worsen and you have a fever Follow-up/Referrals: Delano Flores [Physician] - 08/21/19 11:20 am (Please, follow up with Dr. Flores on MondayAugust 21 at 11:20 am. *If you need to change this appointment, call the office at [phone]. This was his 1st available appointment. However, they are going to try to arrange a sooner appointment and will call you with the details, if they are able to arrange it. If you have any questions, call his office at [phone].) Berto Grijalva [Primary Care Provider] - 07/08/19 11:10 am (Please, follow up at Dr. Grijalva's office with his associate Adriana UMANA, on MondayJuly 08 at 11:10 am. *If you need to change this appointment, call their office at [phone].) Diet: Carb Consistent or DM2 Ambulatory Orders: Basic Metabolic Panel (Routine) Timeframe: 3 Days Location: Determined by Patient Ordered By: Price Del Valle Attending Provider Instructions: Medications: - BENTYL (dicyclomine): take 20mg every 6 hours as needed for abdominal pain/diarrhea, see below - BACLOFEN: dose increased from once a day to twice a day for muscle spasms in neck - POTASSIUM: take 40mEq (30mL) by mouth twice a day to help keep potassium levels stable - IMODIUM: obtain over the counter, take as needed for diarrhea Chronic diarrhea, abdominal pain gastroenterology feels that this is irritable bowel syndrome no abnormalities on CT scan, C diff negative, stool culture negative on colonoscopies in the past there was no specific finding, no evidence for microscopic colitis treatment consists of Bentyl 20mg every 6 hours as needed for the abdominal pain and diarrhea for the next several days you can take scheduled every 6 hours and then after the weekend you can use as needed if you are still having diarrhea despite the Bentyl then use some Imodium recommend follow up with Dr. Grijalva next week and [facility] in 2-3 weeks Hypokalemia: quite low at 1.5 at the time of admission improved to 2.8 today low potassium is due to GI losses with diarrhea will continue on 40mEq twice a day, repeat potassium level on Monday with results to Dr. Grijalva FOLLOW UP - Dr. Grijalva in one week - Dr. Flores in 2-3 weeks Pending Studies at Discharge: No Stand-Alone Forms: My [facility] Interactive Project, Smoking Cessation Medications and DC Order Prescriptions: New loperamide 2 mg Capsule 2 mg PO Q6 PRN (Reason: loose stool) 30 Days Qty: 120 RF: 0 baclofen 20 mg Tablet 20 mg PO BID 30 Days Qty: 60 RF: 0 potassium chloride 20 mEq/15 mL Liquid 40 meq PO BID Qty: 1500 RF: 2 dicyclomine 20 mg Tablet 20 mg PO Q6H PRN (Reason: abdominal pain) 30 Days Qty: 120 RF: 1 Continued Aimovig Autoinjector 140 mg/mL auto-injector 140 mg SQ MONTHLY 30 Days Qty: 30 RF: 5 sumatriptan succinate 100 mg tablet 100 mg PO .COMPLEX 30 Days Qty: 9 RF: 5 promethazine 25 mg tablet 25 mg PO TID PRN (Reason: nausea and vomiting) 30 Days Qty: 30 RF: 1 omeprazole 40 mg capsule,delayed release(DR/EC) 40 mg PO DAILY RF: 0 sumatriptan succinate 6 mg/0.5 mL pen injector 6 mg .ROUTE .COMPLEX Qty: 2 RF: 0 zolpidem 10 mg tablet 10 mg PO HS RF: 0 alprazolam 0.5 mg tablet 0.5 mg PO HS RF: 0 duloxetine 60 mg capsule,delayed release(DR/EC) 60 mg PO HS RF: 0 quetiapine 400 mg tablet 400 mg PO HS RF: 0 insulin glargine 100 unit/mL (3 mL) insulin pen subcut UD RF: 0 ropinirole 4 mg tablet 8 mg PO HS RF: 0 gabapentin 300 mg capsule 900 mg PO TID RF: 0 topiramate 100 mg Tablet 200 mg PO QPM RF: 0 topiramate 100 mg tablet 100 mg PO QAM RF: 0 Discontinued baclofen 20 mg tablet 20 mg PO HS RF: 0 Discharge Orders: Discharge Order (Routine); Ordered 07/04/19 Ordered By: Price Ha Admission Data Admit Date/Time: 07/01/19 17:14 Attending Provider: Price Ha Admit Provider: Tam Robert Primary Care Provider: Berto Grijalva Other Providers: Tam Robert ; Delano Flores Other Interventions: Discharge Summary Assessment (RN) Last Done: 07/04/19 09:57 DC Date/Time DO NOT enter until pt leaves facility: 07/04/19 11:25
== END 2019-07-04 11:25 | disposition home or self-care (01) | DRG 392 ==
LOC: ED 13:45 → SUATTDRO 17:14 → 2S 17:14

== ENCOUNTER 2022-04-27 14:09 | Observation (INO) ==
[2022-04-27 14:55] LABS: Basophils # (auto) 0.03 K/uL (0-0.2); Basophils % (auto) 0.4 %; Eosinophils # (auto) 0.12 K/uL (0-0.50); Eosinophils % (auto) 1.5 %; Hematocrit (blood only) 39.6 % (34.1-44.9); Hemoglobin 13.9 g/dl (12.0-16.0); Immature Granulocytes # (auto) 0.03 K/uL (0.00-0.02); Immature Granulocytes % (auto) 0.4 %; Lymphocytes # (auto) 1.23 K/uL (1.2-3.4); Lymphocytes % (auto) 15.6 %; Mean Corpuscular Hemoglobin 33.1 pg (25.0-34.0); Mean Corpuscular Hgb Conc 35.1 g/dL (32.0-36.0); Mean Corpuscular Volume 94.3 fL (80.0-100.0); Mean Platelet Volume 9.5 fL (9.4-12.3); Monocytes # (auto) 0.51 K/uL (0.24-0.82); Monocytes % (auto) 6.5 %; Neutrophils # (auto) 5.94 K/uL (1.4-6.5); Neutrophils % (auto) 75.6 %; Platelet Count 288 K/uL (130-400); RDW Coefficient of Variation 12.4 % (11.5-14.5); RDW Standard Deviation 42.4 fL (36.4-46.3); White Blood Count 7.86 K/ul (4.8-10.8)
[2022-04-27 15:30] LABS: Partial Thromboplastin Time 27.9 Seconds (21.0-31.0); Prothrombin Time 10.2 Seconds (9.0-12.0)
[2022-04-27 15:31] LABS: Troponin I High Sensitivity 5.1 pg/ml (0-14)
[2022-04-27 15:52] LABS: Alanine Aminotransferase 117 U/L (7-52); Albumin Globulin Ratio 1.4 (0.9-2); Albumin Level 4.3 gm/dl (3.4-5.0); Alkaline Phosphatase 102 U/L (34-104); Anion Gap 10 (3-11); Aspartate Aminotransferase 243 U/L (13-39); BUN Creatinine Ratio 8.9 (10-20); Bilirubin,Total 2.1 mg/dl (0.2-1.0); Blood Urea Nitrogen 8 mg/dl (6-23); Calcium 10.2 mg/dl (8.5-10.1); Carbon Dioxide 22 mmol/L (21-32); Chloride 106 mmol/L (98-107); Est GFR (African American) 86.4 ml/min; Est GFR (Non-African American) 74.6 ml/min; Glucose 149 mg/dl (70-99(Fasting)); Lipase 27 U/L (11-82); Potassium 3.6 mmol/L (3.5-5.1); Sodium 138 mmol/L (136-145); Total Protein 7.3 gm/dl (6.0-8.3)
--- NOTE | 2022-04-27 16:30 | Electrocardiogram Report ---
Test Reason : Blood Pressure : / mmHG Vent. Rate : 062 BPM Atrial Rate : 062 BPM P-R Int : 164 ms QRS Dur : 080 ms QT Int : 398 ms P-R-T Axes : 058 016 059 degrees QTc Int : 403 ms Normal sinus rhythm Normal ECG When compared with ECG of 01-JUL-2019 14:47, QRS duration has decreased Confirmed by Romie Christian ([id number]) on 04/27/2022 4:30:10 PM Referred By: Confirmed By:Romie Christian
[2022-04-27] MEDS ORDERED: SODIUM CHLORIDE 0.9% 1000ML 1,000 ML IV ONE (16:51)
[2022-04-27] MEDS ORDERED: MoRPHine SULFATE 4 MG/ML 1 ML CARP\\VIAL IV STA ×2 (16:51→18:02)
[2022-04-27] MEDS ORDERED: ONDANSETRON INJ 2 MG/ML 2 ML VIAL IV STA (16:51)
--- NOTE | 2022-04-27 17:02 | Emergency Department Note ---
History of Present Illness General Chief complaint: Cardiac Assessment Stated complaint: CHEST PAIN, UPPER BACK PAIN, NAUSEA, SOB Time Seen by Provider: 04/27/22 16:37 Source: patient Mode of arrival: ambulatory Limitations: no limitations History of Present Illness Maximum Pain Intensity: 9 This patient 51-year-old female comes in with epigastric pain rating up into her chest down into her abdomen into her back it started around 445. Is gotten progressively worse. It is worse if she pushes on it moves palpates it or bruits. Nothing seems to make it better. She had normal bowel most without blood or melena no dysuria hematuria slight shortness of breath. No cough no injury no fever chills. No sick contacts no history of similar. Home Medications Medication Instructions Recorded Confirmed Type zolpidem 10 mg tablet 10 mg PO HS 04/19/19 04/27/22 History gabapentin 300 mg capsule 900 mg PO HS 11/03/20 04/27/22 History omeprazole 40 mg capsule,delayed 40 mg PO QAM 04/12/21 04/27/22 History release eletriptan 40 mg tablet (Relpax) 40 mg PO .COMPLEX PRN migraine 10/28/21 04/27/22 Rx headache #9 tabs galcanezumab-gnlm 120 mg/mL 120 mg subcut MONTHLY 30 days #1 mL 10/28/21 04/27/22 Rx subcutaneous pen injector (Emgality Pen) ondansetron HCl 4 mg tablet 4 mg PO DAILY PRN nausea and 10/28/21 04/27/22 Rx vomiting #30 tabs topiramate 200 mg tablet 200 mg PO BID #60 tabs 10/28/21 04/27/22 Rx insulin syringe-needle U-100 1 mL #100 ea 11/19/21 11/19/21 Rx 25 x 1" (BD Insulin Syringe) cyanocobalamin (vitamin B-12) 1,000 mcg IM MONTHLY 30 days #1 mL 04/11/22 04/27/22 Rx 1,000 mcg/mL injection solution baclofen 20 mg tablet 40 mg PO HS 04/27/22 04/27/22 History buspirone 15 mg tablet 15 mg PO TID 04/27/22 04/27/22 History desvenlafaxine succinate 100 mg 100 mg PO DAILY 04/27/22 04/27/22 History tablet,extended release 24 hr desvenlafaxine succinate 50 mg 50 mg PO DAILY 04/27/22 04/27/22 History tablet,extended release 24 hr propranolol 120 mg capsule,24 120 mg PO HS 04/27/22 04/27/22 History hr,extended release varenicline 1 mg tablet (Chantix) 1 mg PO BID 04/27/22 04/27/22 History ziprasidone HCl 40 mg capsule 40 mg PO QAM 04/27/22 04/27/22 History ziprasidone HCl 80 mg capsule 80 mg PO HS 04/27/22 04/27/22 History Allergies Allergy/AdvReac Type Severity Reaction Status Date / Time venlafaxine Allergy Severe SOB Verified 04/27/22 19:10 adhesive AdvReac Mild CAUSES RASH Verified 04/27/22 19:10 Past Med/Surg History Medical History Chronic migraine with aura Chronic pain "MOSTLY BACK PAIN" Current smoker Depression with anxiety Fibromyalgia GERD (gastroesophageal reflux disease) Hyperlipidemia Insomnia Left lumbar radiculopathy Migraine Prediabetes RLS (restless legs syndrome) Surgical History History of section X1 History of colonoscopy History of endometrial ablation History of surgery on arm RT TENDON REPAIR NEAR ELBOW History of tooth extraction Family History Mother Hypercholesteremia Hypertension Father Hypercholesteremia Hypertension Prostate cancer Other No pertinent family history Social History Smoking Status: Former smoker Tobacco Type: Cigarettes Cigarettes Per Day: 1-4 per cigs per day; Second Hand Exposure: No; Hx Alcohol Use: No Hx Substance Use: No Preferred Language: Albanian Communication Ability: Effective Visual Impairment: No Limitations Hearing Ability: Normal Scientific Systems Analyst Required: No Beliefs That Will Affect Care: None marital status: Current Living Situation: Family Current Living Situation Comment: lives with mother and daughter current occupational status: unemployed Feels Safe at Home: Yes Assistive Devices: Contacts, Denture - Upper, Denture - Lower and Glasses Review of Systems A total of 10 systems reviewed and were otherwise negative Physical Exam Vital Signs Vital Signs - 24 hr 04/27/22 14:14 04/27/22 14:47 04/27/22 14:47 Temperature 36.8 C Temperature Source Temporal Artery Scan Pulse Rate 68 Pulse Rate [Right Finger] Respiratory Rate 18 Respiratory Effort / Characteristics Non-Labored Spontaneous Respiratory Depth Normal Respiratory Pattern Regular Blood Pressure 180/98 H Blood Pressure [Right Arm] Blood Pressure Mean 125 Blood Pressure Mean [Right Arm] Pulse Oximetry 100 Oxygen Delivery Method Room Air Room Air Room Air Sepsis Recent Fever Within 48 Hours No Sepsis New/Unexplained Change in Mental Status No Sepsis Action Taken by Nursing No Action Required Pulse Oximetry Post Tiitration 04/27/22 16:37 04/27/22 16:40 04/27/22 17:47 Temperature Temperature Source Pulse Rate Pulse Rate [Right Finger] 57 L Respiratory Rate 22 Respiratory Effort / Characteristics Non-Labored Respiratory Depth Normal Respiratory Pattern Blood Pressure Blood Pressure [Right Arm] 196/116 H 171/90 H Blood Pressure Mean Blood Pressure Mean [Right Arm] 142 117 Pulse Oximetry 100 Oxygen Delivery Method Room Air Room Air Sepsis Recent Fever Within 48 Hours Sepsis New/Unexplained Change in Mental Status Sepsis Action Taken by Nursing Pulse Oximetry Post Tiitration 100 General: Well developed well nourished middle-age female who appears in no acute distress, breathing comfortably on room air. Normal speech HEENT: Normal cephalic atraumatic. Pupils are equal round and reactive to light. Extraocular movements are intact. Oropharynx is pink with moist mucous membranes. No swelling of the mouth lips or tongue. Neck: Supple with a midline trachea. No meningeal signs or stiffness, no JVD or bruits. No Stridor. Chest: Clear to auscultation bilaterally. No wheezes or rhonchi. No increased work of breathing. Heart: Regular rate and rhythm without murmurs or gallops. Abdomen: Soft, tender in epigastric area, nondistended without rebound guarding or rigidity. Extremities: No cyanosis clubbing or edema. No calf tenderness or assymetry Spine/Back. Non tender to palpation. No CVA tenderness Skin: Good turgor without rashes. Neurologic exam: Cranial nerves two through 12 are intact. Motor and sensation are intact and symmetrical throughout. Course Administered Medications Discontinued Medications Sodium Chloride (Nss 1000ml) 1,000 mls @ 999 mls/hr IV .Q1H1M ONE Stop: 04/27/22 17:51 Last Infusion: 04/27/22 18:27 Dose: 0 mls/hr Documented By: Admin: 04/27/22 16:58 Dose: 999 mls/hr Documented By: ALEJANDRO Piperacillin Sod/Tazobactam Sod (Zosyn) 4.5 gm in 120 mls @ 240 mls/hr IV NOW ONE Stop: 04/27/22 18:32 Last Infusion: 04/27/22 19:40 Dose: 0 mls/hr Documented By: MARY ALICE Admin: 04/27/22 18:32 Dose: 240 mls/hr Documented By: ALEJANDRO Ioversol (Optiray 300 100ml) 84 ml IV ONCE ONE Stop: 04/27/22 17:18 Last Admin: 04/27/22 17:19 Dose: 84 ml Documented By: CATRINA Morphine Sulfate (Morphine Sulfate 4 Mg/Ml 1 Ml Carp\\Vial) 4 mg IV NOW STA Stop: 04/27/22 16:52 Last Admin: 04/27/22 16:58 Dose: 4 mg Documented By: ALEJANDRO Morphine Sulfate (Morphine Sulfate 4 Mg/Ml 1 Ml Carp\\Vial) 4 mg IV NOW STA Stop: 04/27/22 18:03 Last Admin: 04/27/22 18:31 Dose: 4 mg Documented By: ALEJANDRO Ondansetron HCl (Ondansetron Inj 2 Mg/Ml 2 Ml Vial) 4 mg IV NOW STA Stop: 04/27/22 16:52 Last Admin: 04/27/22 16:58 Dose: 4 mg Documented By: ALEJANDRO Medical Decision Making Differential Diagnosis Acute coronary syndrome, arrhythmia, gallbladder disease, pancreatitis, electrolyte or metabolic abnormality, bowel obstruction, aortic pathology pulmonary disease Medical Records Attestation: I reviewed the patient's medical records. Home Medications Current Medication List: was personally reviewed by ma Laboratory Data Attestation: I reviewed the patient's lab results. Result diagrams: 04/27/22 14:45 04/27/22 14:45 Lab Results 04/27/22 04/27/22 04/27/22 Range/Units 14:45 14:45 14:45 WBC 7.86 (4.8-10.8) K/ul RBC 4.20 (3.93-5.22) M/uL Hgb 13.9 (12.0-16.0) g/dl Hct 39.6 (34.1-44.9) % MCV 94.3 (80.0-100.0) fL MCH 33.1 (25.0-34.0) pg MCHC 35.1 (32.0-36.0) g/dL RDW Std Deviation 42.4 (36.4-46.3) fL RDW Coeff of Nicki 12.4 (11.5-14.5) % Plt Count 288 (130-400) K/uL MPV 9.5 (9.4-12.3) fL Immature Gran % (Auto) 0.4 % Neut % (Auto) 75.6 % Lymph % (Auto) 15.6 % [place] % (Auto) 6.5 % Eos % (Auto) 1.5 % Baso % (Auto) 0.4 % Neut # (Auto) 5.94 (1.4-6.5) K/uL Lymph # (Auto) 1.23 (1.2-3.4) K/uL [place] # (Auto) 0.51 (0.24-0.82) K/uL Eos # (Auto) 0.12 (0-0.50) K/uL Baso # (Auto) 0.03 (0-0.2) K/uL Immature Gran # (Auto) 0.03 H (0.00-0.02) K/uL PT 10.2 (9.0-12.0) Seconds INR 1.0 (0.9-1.1) APTT 27.9 (21.0-31.0) Seconds PTT Ratio 1.0 Sodium 138 (136-145) mmol/L Potassium 3.6 (3.5-5.1) mmol/L Chloride 106 (98-107) mmol/L Carbon Dioxide 22 (21-32) mmol/L Anion Gap 10 (3-11) BUN 8 (6-23) mg/dl Creatinine 0.90 (0.6-1.2) mg/dl Est Cr Clr Drug Dosing Not Reportable Est GFR ( Amer) 86.4 ml/min Est GFR (Non-Af Amer) 74.6 ml/min BUN/Creatinine Ratio 8.9 L (10-20) Glucose 149 H (70-99(Fasting)) mg/dl Calcium 10.2 H (8.5-10.1) mg/dl Total Bilirubin 2.1 H (0.2-1.0) mg/dl AST 243 H (13-39) U/L ALT 117 H (7-52) U/L Alkaline Phosphatase 102 (34-104) U/L Troponin I High Sens 5.1 (0-14) pg/ml Total Protein 7.3 (6.0-8.3) gm/dl Albumin 4.3 (3.4-5.0) gm/dl Globulin 3.0 (2.5-4.0) gm/dl Albumin/Globulin Ratio 1.4 (0.9-2) Lipase 27 (11-82) U/L SARS-CoV-2, RNA, NAAT (NEGATIVE) 04/27/22 Range/Units 18:26 WBC (4.8-10.8) K/ul RBC (3.93-5.22) M/uL Hgb (12.0-16.0) g/dl Hct (34.1-44.9) % MCV (80.0-100.0) fL MCH (25.0-34.0) pg MCHC (32.0-36.0) g/dL RDW Std Deviation (36.4-46.3) fL RDW Coeff of Nicki (11.5-14.5) % Plt Count (130-400) K/uL MPV (9.4-12.3) fL Immature Gran % (Auto) % Neut % (Auto) % Lymph % (Auto) % [place] % (Auto) % Eos % (Auto) % Baso % (Auto) % Neut # (Auto) (1.4-6.5) K/uL Lymph # (Auto) (1.2-3.4) K/uL [place] # (Auto) (0.24-0.82) K/uL Eos # (Auto) (0-0.50) K/uL Baso # (Auto) (0-0.2) K/uL Immature Gran # (Auto) (0.00-0.02) K/uL PT (9.0-12.0) Seconds INR (0.9-1.1) APTT (21.0-31.0) Seconds PTT Ratio Sodium (136-145) mmol/L Potassium (3.5-5.1) mmol/L Chloride (98-107) mmol/L Carbon Dioxide (21-32) mmol/L Anion Gap (3-11) BUN (6-23) mg/dl Creatinine (0.6-1.2) mg/dl Est Cr Clr Drug Dosing Est GFR ( Amer) ml/min Est GFR (Non-Af Amer) ml/min BUN/Creatinine Ratio (10-20) Glucose (70-99(Fasting)) mg/dl Calcium (8.5-10.1) mg/dl Total Bilirubin (0.2-1.0) mg/dl AST (13-39) U/L ALT (7-52) U/L Alkaline Phosphatase (34-104) U/L Troponin I High Sens (0-14) pg/ml Total Protein (6.0-8.3) gm/dl Albumin (3.4-5.0) gm/dl Globulin (2.5-4.0) gm/dl Albumin/Globulin Ratio (0.9-2) Lipase (11-82) U/L SARS-CoV-2, RNA, NAAT NEGATIVE (NEGATIVE) Imaging Data Radiologist's Impression: Abdomen/Pelvis CT 04/27/22 16:[address] WITH IV CONTRAST CT DOSE: 842.62 mGycm HISTORY: epigastric/back pain TECHNIQUE: Multiaxial CT images of the abdomen and pelvis were performed following the use of intravenous contrast. A dose lowering technique was utilized adhering to the principles of ALARA. COMPARISON STUDY: Abdomen and pelvis CT 06/23/2019. FINDINGS: The lung bases are clear. No pneumoperitoneum. No pneumatosis. No fractures within the visualized osseous structures. The bladder, uterus, bilateral adnexa are within normal limits. There is trace pelvic free fluid. No bowel wall thickening or obstruction. The appendix is mildly dilated at 8.7 mm but completely fills with gas and there is no periappendiceal fat stranding. Therefore, this is likely within normal limits. No hepatic or splenic masses. The adrenal glands, pancreas, and kidneys are within normal limits. No ureteral stones. No hydronephrosis. No retroperitoneal lymphadenopathy. The main portal vein is patent. There is mild central intrahepatic bile duct dilatation which has progressed. There is also progressive gallbladder distention with minimal adjacent fat stranding/edema. Normal caliber common bile duct. Therefore, these findings are suspicious for a developing acute cholecystitis IMPRESSION: 1. Progressive distention of the gallbladder with minimal adjacent fat stranding/edema and mild central intrahepatic bile duct dilatation. This is suspicious for a developing acute cholecystitis. Surgical consultation recommended. 2. No bowel wall thickening or obstruction. 3. Trace pelvic free fluid. 4. Additional findings as described above. ACT 112: Negative or not required by law. Electronically signed by: Joey Layton M.D. 04/27/2022 5:30 PM ECG Data Attestation: I personally reviewed and interpreted this ECG as follows: Indication: + abdominal pain and + chest pain Rate (beats per minute): 62 Rhythm: + normal sinus ECG Intervals/blocks: + Normal QRS and + Normal QT ECG [place]: + Normal ECG ST segments: + Normal ST segments ECG Findings: + Other (nonpecific T wave abnormality); no PACs or no PVCs Comparison ECG Date: from (07/01/19) Change: the following changes noted (ST segments abnormalities are now improved anteriorly and laterally) MDM Narrative This Patient comes in as described above. She was placed in room B4 ekg monitor. She was having epigastric pain rating to the chest and abdomen on my exam she is very tender in the epigastric area in the right upper quadrant. IV access was established EKG does not show any definite ischemic changes. Troponin is not elevated. She has no elevation white count or fever to suggest infection. Her LFTs are mild to moderately elevated. I did a's CAT scan of her abdomen with IV contrast and it shows findings likely consistent with acute cholecystitis. I did discuss the case with Dr. Ibarra who felt that she was a medical admit due to the some mild ductal dilatation she would need either ERCP or MRCP first possibly GI consultation. I did give her IV antibiotics with Zosyn IV. She has been hydrated with IV normal saline. she has gotten morphine IV and Zofran IV several times for pain. I did discuss the case with the internal medicine medicine [facility] team and they will admit her for these measures. Continuous cardiac monitoring: Orders placed in EMR for continuous cardiac monitoring. Upon my interpretation the patient had to be in normal sinus rhythm rate of 65 Impression & Plan Acute cholecystitis, Chest pain, Epigastric abdominal pain, Lab test negative for COVID-19 virus Discharge Plan Visit Data Chief Complaint: Cardiac Assessment Stated Complaint: CHEST PAIN, UPPER BACK PAIN, NAUSEA, SOB ED Provider: Delano Zayas Discharge Problem: Acute cholecystitis, Chest pain, Epigastric abdominal pain, Lab test negative for COVID-19 virus Patient Disposition: Admitted As Inpatient Discharge Instructions Interventions: ED Discharge Assessment Last Done: 04/27/22 22:14 : Chest pain Qualifiers: Chest pain type: unspecified Qualified Code(s): R07.9 - Chest pain, unspecified
[2022-04-27] MEDS ORDERED: OPTIRAY 300 100mL IV ONE (17:17)
--- NOTE | 2022-04-27 17:32 | CT Scan Report ---
ABDOMEN AND PELVIS CT WITH IV CONTRAST CT DOSE: 842.62 mGycm HISTORY: epigastric/back pain TECHNIQUE: Multiaxial CT images of the abdomen and pelvis were performed following the use of intrave nous contrast. A dose lowering technique was utilized adhering to the principles of ALARA. COMPARISON STUDY: Abdomen and pelvis CT 06/23/2019. FINDINGS: The lung bases are clear. No pneumoperitoneum. No pneumatosis. No fractures within the visu alized osseous structures. The bladder, uterus, bilateral adnexa are within normal limits. There is t race pelvic free fluid. No bowel wall thickening or obstruction. The appendix is mildly dilated at 8. 7 mm but completely fills with gas and there is no periappendiceal fat stranding. Therefore, this is likely within normal limits. No hepatic or splenic masses. The adrenal glands, pancreas, and kidneys are within normal limits. No ureteral stones. No hydronephrosis. No retroperitoneal lymphadenopathy. The main portal vein is patent. There is mild central intrahepatic bile duct dilatation which has pro gressed. There is also progressive gallbladder distention with minimal adjacent fat stranding/edema. Normal caliber common bile duct. Therefore, these findings are suspicious for a developing acute chol ecystitis IMPRESSION: 1. Progressive distention of the gallbladder with minimal adjacent fat stranding/edema and mild centr al intrahepatic bile duct dilatation. This is suspicious for a developing acute cholecystitis. Surgic al consultation recommended. 2. No bowel wall thickening or obstruction. 3. Trace pelvic free fluid. 4. Additional findings as described above. ACT 112: Negative or not required by law. Electronically signed by: Joey Layton M.D. 04/27/2022 5:30 PM
[2022-04-27] MEDS ORDERED: PIPERACILLIN/TAZOBACTAM 4.5 GM/120 ML BAG IV ONE (18:03)
--- NOTE | 2022-04-27 19:27 | History & Physical Report ---
Date of Service April 27, 2022 Assessment & Plan (1) Choledocholithiasis with acute cholecystitis: Plan: RUQ pain in setting of dilatation of CBD and elevated LFTs. Lipase WNL IV Zosyn (monitor for watery diarrhea given history of c. diff), NPO, LR @125ml/hr, MRCP Consult GI and surgery for ERCP if MRCP positive + cholecystectomy (2) GERD (gastroesophageal reflux disease): Plan: Switch omeprazole for pantoprazole per hospital formulary (3) Back pain: Plan: Continue her usual gabapentin Continue her usual baclofen for back spasms (4) Migraines: Plan: Migraine prophylaxis - propranolol + Emgality + Tompax - continue these Eletriptan PRN for migraine (5) Type 2 diabetes mellitus: Plan: Suspect historical diagnosis. Reports intentional 70lb weight loss. HbA1C 6.0 in March, no need to repeat this as within the last 3 months. On no outpatient medication for this. (6) Depression with anxiety: Plan: Continue her usual Ziprasidone, BuSpar and Zolpidem to sleep Plan VTE Prophylaxis - chemical prophylaxis deferred pending saud +/- ERCP Diet - NPO Disposition - admit to med/surg Admission and Anticipated Discharge Date Admission Date: April 27, 2022 History of Present Illness Chief Complaint: Abdominal pain Primary Care Provider: Berto Grijalva Tamara Ramon is a 51 year old female who presents to the ER with abdominal pain. She reports right upper quadrant abdominal pain starting at 4:45 am this morning which woke her up. Pain radiated through to her back, epigastric area and lower chest. Severity 2/10 current after pain medication, previously 9/10. It progressed throughout the day despite "gas pills" and omeprazole therefore she decided to come to the ER. Associated lack of appetite and nausea but no vomiting or change in bowel movements, melena or bright red blood in stool. She denies any fever or chills. In the ER CT A/P was concerning for progressive distention of the gallbladder with minimal adjacent fat stranding/edema and mild central intrahepatic bile duct dilatation suspicious for developing acute cholecystitis. WBC normal. Total bilirubin 2.1, AST 243, ALT 117. She given IV Zosyn to cover for acute cholecystitis and referred to medicine for admission and ongoing management of this. Allergies Allergy/AdvReac Type Severity Reaction Status Date / Time venlafaxine Allergy Severe SOB Verified 04/27/22 19:10 adhesive AdvReac Mild CAUSES RASH Verified 04/27/22 19:10 Home Medications Medication Instructions Recorded Confirmed Type zolpidem 10 mg tablet 10 mg PO HS 04/19/19 04/27/22 History gabapentin 300 mg capsule 900 mg PO HS 11/03/20 04/27/22 History omeprazole 40 mg capsule,delayed 40 mg PO QAM 04/12/21 04/27/22 History release eletriptan 40 mg tablet (Relpax) 40 mg PO .COMPLEX PRN migraine 10/28/21 04/27/22 Rx headache #9 tabs galcanezumab-gnlm 120 mg/mL 120 mg subcut MONTHLY 30 days #1 mL 10/28/21 04/27/22 Rx subcutaneous pen injector (Emgality Pen) ondansetron HCl 4 mg tablet 4 mg PO DAILY PRN nausea and 10/28/21 04/27/22 Rx vomiting #30 tabs topiramate 200 mg tablet 200 mg PO BID #60 tabs 10/28/21 04/27/22 Rx insulin syringe-needle U-100 1 mL #100 ea 11/19/21 11/19/21 Rx 25 x 1" (BD Insulin Syringe) cyanocobalamin (vitamin B-12) 1,000 mcg IM MONTHLY 30 days #1 mL 04/11/22 04/27/22 Rx 1,000 mcg/mL injection solution baclofen 20 mg tablet 40 mg PO HS 04/27/22 04/27/22 History buspirone 15 mg tablet 15 mg PO TID 04/27/22 04/27/22 History desvenlafaxine succinate 100 mg 100 mg PO DAILY 04/27/22 04/27/22 History tablet,extended release 24 hr desvenlafaxine succinate 50 mg 50 mg PO DAILY 04/27/22 04/27/22 History tablet,extended release 24 hr propranolol 120 mg capsule,24 120 mg PO HS 04/27/22 04/27/22 History hr,extended release varenicline 1 mg tablet (Chantix) 1 mg PO BID 04/27/22 04/27/22 History ziprasidone HCl 40 mg capsule 40 mg PO QAM 04/27/22 04/27/22 History ziprasidone HCl 80 mg capsule 80 mg PO HS 04/27/22 04/27/22 History Past Med/Surg History Medical History Chronic migraine with aura Chronic pain "MOSTLY BACK PAIN" Current smoker Depression with anxiety Fibromyalgia GERD (gastroesophageal reflux disease) Hyperlipidemia Insomnia Left lumbar radiculopathy Migraine Prediabetes RLS (restless legs syndrome) Surgical History History of section X1 History of colonoscopy History of endometrial ablation History of surgery on arm RT TENDON REPAIR NEAR ELBOW History of tooth extraction Family History Mother Hypercholesteremia Hypertension Father Hypercholesteremia Hypertension Prostate cancer Other No pertinent family history Social History Smoking Status: Former smoker Tobacco Type: Cigarettes Cigarettes Per Day: 1-4 per cigs per day; Second Hand Exposure: No; Do You Dip or Chew Tobacco: No; Tobacco Cessation Education Requested by Patient: No Hx Alcohol Use: No Hx Substance Use: No Preferred Language: Faroese Communication Ability: Effective Visual Impairment: No Limitations Hearing Ability: Normal Hospice Patient Care Secretary Required: No Beliefs That Will Affect Care: None marital status: Current Living Situation: Family Current Living Situation Comment: home with Mother and Daughter current occupational status: unemployed Other Information That Helps Us Care for You: No Feels Safe at Home: Yes Safety Concerns: Feels Safe At This Time Assistive Devices: Contacts, Denture - Upper, Denture - Lower and Glasses Review of Systems Review of Systems: All systems reviewed & are unremarkable except as noted in HPI & below Physical Exam Constitutional: WD/WN, vitals as above Eyes: + anicteric sclerae; normal pupil size ENMT: external ear and nose normal, oropharynx normal Neck: trachea midline, no thyromegaly Respiratory: normal respiratory effort, lungs clear to auscultation Cardiovascular: RRR, no murmur, no edema Gastrointestinal (Abdomen): Inspection/Auscultation: abdomen normal to inspection and normal bowel sounds; abdomen not distended Percussion/Palpation: + abdomen tender (RUQ pain, worse on inspiration) and abdomen soft; no guarding and abdomen not rigid Musculoskeletal: no cyanosis or clubbing, extremities motor strength 5/5 Skin: no rashes, warm and dry Neurologic: moves all extremities and awake; not confused Psychiatric: A+Ox3, euthymic affect Results & Data Results & Data ([facility]) Vital Signs (Past 12 Hours) Vital Signs Temp Pulse Pulse Resp BP BP Pulse Ox 04/27/22 17:47 171/90 H 04/27/22 16:40 04/27/22 16:37 57 L 22 196/116 H 100 04/27/22 14:47 04/27/22 14:47 04/27/22 14:14 36.8 C 68 18 180/98 H 100 O2 Del Method 04/27/22 17:47 04/27/22 16:40 Room Air 04/27/22 16:37 Room Air 04/27/22 14:47 Room Air 04/27/22 14:47 Room Air 04/27/22 14:14 Room Air Laboratory Results Abnormal lab results 04/27/22 04/27/22 Range/Units 14:45 14:45 Immature Gran # (Auto) 0.03 H (0.00-0.02) K/uL BUN/Creatinine Ratio 8.9 L (10-20) Glucose 149 H (70-99(Fasting)) mg/dl Calcium 10.2 H (8.5-10.1) mg/dl Total Bilirubin 2.1 H (0.2-1.0) mg/dl AST 243 H (13-39) U/L ALT 117 H (7-52) U/L Diagnostic Findings ABDOMEN AND PELVIS CT WITH IV CONTRAST CT DOSE: 842.62 mGycm HISTORY: epigastric/back pain TECHNIQUE: Multiaxial CT images of the abdomen and pelvis were performed following the use of intravenous contrast. A dose lowering technique was utilized adhering to the principles of ALARA. COMPARISON STUDY: Abdomen and pelvis CT 06/23/2019. FINDINGS: The lung bases are clear. No pneumoperitoneum. No pneumatosis. No fractures within the visualized osseous structures. The bladder, uterus, bilateral adnexa are within normal limits. There is trace pelvic free fluid. No bowel wall thickening or obstruction. The appendix is mildly dilated at 8.7 mm but completely fills with gas and there is no periappendiceal fat stranding. Therefore, this is likely within normal limits. No hepatic or splenic masses. The adrenal glands, pancreas, and kidneys are within normal limits. No ureteral stones. No hydronephrosis. No retroperitoneal lymphadenopathy. The main portal vein is patent. There is mild central intrahepatic bile duct dilatation which has progressed. There is also progressive gallbladder distention with minimal adjacent fat stranding/edema. Normal caliber common bile duct. Therefore, these findings are suspicious for a developing acute cholecystitis IMPRESSION: 1. Progressive distention of the gallbladder with minimal adjacent fat stranding/edema and mild central intrahepatic bile duct dilatation. This is suspicious for a developing acute cholecystitis. Surgical consultation recommended. 2. No bowel wall thickening or obstruction. 3. Trace pelvic free fluid. 4. Additional findings as described above. Medications Administered ER Medications Given: NSS 1L bolus Ondansetron 4mg IV Morphine 4mg IV x2 Zosyn 4.5g IV ECG Indication: abdominal pain and chest pain Rate (beats per minute): 62 Rhythm: normal sinus Comparison ECG Date: from (July 01, 2019) Change: no significant change Code Status & VTE Plan Code Status Full VTE Prophylaxis Plan VTE Prophylaxis will be ordered: No Reason for no VTE drug order: Treatment not indicated (pre-operatively) PG Care Time/CCT Total # of Minutes Spent Total Time Spent with Patient: Total time spent is greater than 50% in coordination of care (as documented) at patient's floor/unit and/or counseling patient: Coding Level of Care Code 08420 Initial Inpt Care Lvl 2 Diagnoses Choledocholithiasis with acute cholecystitis K80.42 GERD (gastroesophageal reflux disease) K21.9 Back pain M54.9 Migraines G43.009 Intractability: not intractable Migraine type: without aura Status migrainosus presence: without status migrainosus Type 2 diabetes mellitus E11.9 Depression with anxiety F41.8 (1) Migraines Intractability: not intractable Migraine type: without aura Status migrainosus presence: without status migrainosus Qualified Code(s): G43.009 - Migraine without aura, not intractable, without status migrainosus
[2022-04-27] MEDS ORDERED: ZOLPIDEM TARTRATE 10 MG TAB PO SCH (23:00)
[2022-04-27] MEDS ORDERED: ONDANSETRON INJ 2 MG/ML 2 ML VIAL IV PRN (23:00)
[2022-04-27] MEDS ORDERED: ACETAMINOPHEN 325 MG TAB PO PRN (23:00)
[2022-04-28] MEDS ORDERED: HYDROmorphone INJ 0.5 MG/0.5 ML SYR IV PRN (00:32)
[2022-04-28] MEDS: PROPRANOLOL HCL 60 MG LA CAP PO SCH ×2 (00:39→22:39)
[2022-04-28] MEDS: busPIRone 15 MG TAB PO SCH ×5 (00:39→22:00)
[2022-04-28] MEDS: TOPIRAMATE 100 MG TAB PO SCH ×4 (00:40→22:00)
[2022-04-28] MEDS: GABAPENTIN 300 MG CAP PO SCH ×2 (00:40→22:00)
[2022-04-28] MEDS: ziprasidone HCL 80 MG CAP PO SCH ×2 (00:40→22:00)
[2022-04-28] MEDS: BACLOFEN 20 MG TAB PO SCH (00:40)
[2022-04-28] MEDS: LACTATED RINGER'S 1,000 ML IV SCH ×4 (00:42→20:38)
[2022-04-28] MEDS: PIPERACILLIN/TAZOBACTAM 3.375 GM in DEXTROSE 5% 100 ML IV SCH ×3 (01:03→16:49)
[2022-04-28 07:50] LABS: Basophils # (auto) 0.01 K/uL (0-0.2); Basophils % (auto) 0.2 %; Eosinophils # (auto) 0.19 K/uL (0-0.50); Eosinophils % (auto) 3.7 %; Hematocrit (blood only) 33.3 % (34.1-44.9); Hemoglobin 11.4 g/dl (12.0-16.0); Immature Granulocytes # (auto) 0.01 K/uL (0.00-0.02); Immature Granulocytes % (auto) 0.2 %; Lymphocytes # (auto) 1.61 K/uL (1.2-3.4); Lymphocytes % (auto) 31.6 %; Mean Corpuscular Hemoglobin 32.8 pg (25.0-34.0); Mean Corpuscular Hgb Conc 34.2 g/dL (32.0-36.0); Mean Corpuscular Volume 95.7 fL (80.0-100.0); Mean Platelet Volume 9.9 fL (9.4-12.3); Monocytes # (auto) 0.38 K/uL (0.24-0.82); Monocytes % (auto) 7.5 %; Neutrophils # (auto) 2.89 K/uL (1.4-6.5); Neutrophils % (auto) 56.8 %; Platelet Count 240 K/uL (130-400); RDW Coefficient of Variation 12.7 % (11.5-14.5); RDW Standard Deviation 43.9 fL (36.4-46.3); Red Blood Count 3.48 M/uL (3.93-5.22); White Blood Count 5.09 K/ul (4.8-10.8)
[2022-04-28] MEDS: PANTOprazole 40 MG TAB PO SCH ×2 (08:04→16:37)
--- NOTE | 2022-04-28 08:06 | Magnetic Resonance Report ---
MRCP CLINICAL HISTORY: acute saud, elevated LFTs, bile dilatation TECHNIQUE: Utilizing a 1.5 Karli magnet and dedicated coil, multiplanar, multiecho imaging of the p er abdomen was performed utilizing heavily T2 weighted pulsing sequences without IV contrast. COMPARISON STUDY: CT of the abdomen and pelvis April 27, 2022. FINDINGS: Numerous gallstones within the gallbladder are present. The gallbladder is moderately diste nded. There is minimal pericholecystic fluid. There is also trace perihepatic fluid and a trace right pleural effusion. Mild dilatation of the common bile duct is noted, measuring 7 mm in caliber. Note is made of a 5 mm x 2 mm elongated intraluminal focus within the distal common bile duct suggestive o f a distal common bile duct calculus. Pancreas divisum is noted. There is no peripancreatic fluid. No pancreatic ductal dilatation is present. No hepatic lesions are identified on this unenhanced exam. 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 No abdominal lymphadenopathy is present. Caliber of vi sualized small and large bowel are normal. IMPRESSION: 1. Cholelithiasis with gallbladder distention and trace pericholecystic fluid. These findings favor a cute cholecystitis. 2. 5 mm x 2 mm intraluminal focus within the distal common bile duct consistent with a common bile du ct calculus. 3. Pancreas divisum. ACT 112: Negative or not required by law. Electronically signed by: Gelacio Lal M.D. 04/28/2022 8:03 AM
[2022-04-28 08:24] LABS: Albumin Globulin Ratio 1.6 (0.9-2); Albumin Level 3.5 gm/dl (3.4-5.0); BUN Creatinine Ratio 6.1 (10-20); Bilirubin,Total 3.1 mg/dl (0.2-1.0); Calcium 8.8 mg/dl (8.5-10.1); Creatinine Clr Calc Pharmacy 87.1 ml/min; Est GFR (African American) 96.7 ml/min; Est GFR (Non-African American) 83.4 ml/min; Globulin 2.2 gm/dl (2.5-4.0); Potassium 3.3 mmol/L (3.5-5.1); Total Protein 5.7 gm/dl (6.0-8.3)
[2022-04-28] MEDS ORDERED: INDOMETHACIN 50 MG SUPP PR SCH (08:30)
--- NOTE | 2022-04-28 08:38 | Gastrointestinal Consultation ---
Date of Consultation April 28, 2022 Assessment & Plan (1) Choledocholithiasis with acute cholecystitis: Pt is a 51 yo female w R sided abd pain, n/v symptoms, noted to have elevated LFTs, and CT, MRCP signs of cholecystitis, intrahepatic ductal dilation, and CBD stone. Appears drowsy this AM but had been given narcotics and other sedating psych meds overnight. On exam TTP over mid and R sided abd areas. - Zosyn IV coverage - Keep NPO - Plan for ERCP in OR by Dr. Jigna Call today - Trend LFTs - Surgery consulted to eval for possible cholecystectomy Supervising Physician Co-Signing Physician Notes i saw and evaluated the patient. We are planning for ERCP today given the positive MRCP for choledocholithiasis. She had presented with abdominal pain and elevated LAE. PE: mild icterus RUQ tender to palpation Impression: symptomatic choledocholithiasis and a positive MRCP with elevated LFT. We have disucussed the risks to include bleeding, infection, perforation, pain, pancreatitis and need for f/u studies. Plan ERCP today History of Present Illness Reason for Consultation: Cholelithiasis, choledocholithiasis Requesting Physician: Dr. Julia Mckeon Attending Physician: Dr. Jigna Call History of Present Illness Patient is a 51 years old female with past medical history is of C. difficile, GERD, RLS, depression IBS, diabetes mellitus type 2, and folate deficiency, lumbar radiculopathy who presented yesterday with complaints of right-sided abdominal pain which woke her up from her sleep. She denies any associated fevers, chills, however does have nausea and vomiting. Noticed also that her stools are bertha colored. Upon evaluation labs did not show any leukocytosis, however her LFTs are noted to be elevated. Bili 3, AST 120, ALT 117, alkaline phosphatase 107, lipase 27. Imaging studies including CT and MRCP showed signs of gallbladder distention with edema, stranding, suspicious for acute cholecystitis. There is also intrahepatic biliary ductal dilatation. CBD was 7 mm. There is also intraluminal focus within the CBD area consistent with CBD calculus. Noted pancreatic divisum also present. Allergies Allergy/AdvReac Type Severity Reaction Status Date / Time venlafaxine Allergy Severe SOB Verified 04/27/22 19:10 adhesive AdvReac Mild CAUSES RASH Verified 04/27/22 19:10 Home Medications Medication Instructions Recorded Confirmed Type zolpidem 10 mg tablet 10 mg PO HS 04/19/19 04/27/22 History gabapentin 300 mg capsule 900 mg PO HS 11/03/20 04/27/22 History omeprazole 40 mg capsule,delayed 40 mg PO QAM 04/12/21 04/27/22 History release eletriptan 40 mg tablet (Relpax) 40 mg PO .COMPLEX PRN migraine 10/28/21 04/27/22 Rx headache #9 tabs galcanezumab-gnlm 120 mg/mL 120 mg subcut MONTHLY 30 days #1 mL 10/28/21 04/27/22 Rx subcutaneous pen injector (Emgality Pen) ondansetron HCl 4 mg tablet 4 mg PO DAILY PRN nausea and 10/28/21 04/27/22 Rx vomiting #30 tabs topiramate 200 mg tablet 200 mg PO BID #60 tabs 10/28/21 04/27/22 Rx insulin syringe-needle U-100 1 mL #100 ea 11/19/21 11/19/21 Rx 25 x 1" (BD Insulin Syringe) cyanocobalamin (vitamin B-12) 1,000 mcg IM MONTHLY 30 days #1 mL 04/11/22 04/27/22 Rx 1,000 mcg/mL injection solution baclofen 20 mg tablet 40 mg PO HS 04/27/22 04/27/22 History buspirone 15 mg tablet 15 mg PO TID 04/27/22 04/27/22 History desvenlafaxine succinate 100 mg 100 mg PO DAILY 04/27/22 04/27/22 History tablet,extended release 24 hr desvenlafaxine succinate 50 mg 50 mg PO DAILY 04/27/22 04/27/22 History tablet,extended release 24 hr propranolol 120 mg capsule,24 120 mg PO HS 04/27/22 04/27/22 History hr,extended release varenicline 1 mg tablet (Chantix) 1 mg PO BID 04/27/22 04/27/22 History ziprasidone HCl 40 mg capsule 40 mg PO QAM 04/27/22 04/27/22 History ziprasidone HCl 80 mg capsule 80 mg PO HS 04/27/22 04/27/22 History Patient History Medical History Chronic migraine with aura Chronic pain "MOSTLY BACK PAIN" Current smoker Depression with anxiety Fibromyalgia GERD (gastroesophageal reflux disease) Hyperlipidemia Insomnia Left lumbar radiculopathy Migraine Prediabetes RLS (restless legs syndrome) Surgical History History of section X1 History of colonoscopy History of endometrial ablation History of surgery on arm RT TENDON REPAIR NEAR ELBOW History of tooth extraction Family History Mother Hypercholesteremia Hypertension Father Hypercholesteremia Hypertension Prostate cancer Other No pertinent family history Social History Smoking Status: Former smoker Tobacco Type: Cigarettes Cigarettes Per Day: 1-4 per cigs per day; Second Hand Exposure: No; Do You Dip or Chew Tobacco: No; Tobacco Cessation Education Requested by Patient: No Hx Alcohol Use: No Hx Substance Use: No Preferred Language: Maltese Communication Ability: Effective Visual Impairment: No Limitations Hearing Ability: Normal Keno Manager Required: No Beliefs That Will Affect Care: None marital status: Current Living Situation: Family Current Living Situation Comment: home with Mother and Daughter current occupational status: unemployed Other Information That Helps Us Care for You: No Feels Safe at Home: Yes Safety Concerns: Feels Safe At This Time Assistive Devices: Contacts, Denture - Upper, Denture - Lower and Glasses Review of Systems Review of Systems: All systems reviewed & are unremarkable except as noted in HPI & below Physical Exam Constitutional: WD/WN, vitals as above well groomed, cooperative and comfortable Eyes: PERRL, conjunctivae normal, anicteric sclerae ENMT: external ear and nose normal, oropharynx normal Respiratory: normal respiratory effort, lungs clear to auscultation Cardiovascular: RRR, no murmur, no edema Gastrointestinal (Abdomen): TTP mid upper and RUQ, RLQ abd areas, BS + but hypoactive, soft. Skin: no rashes, warm and dry no jaundice Psychiatric: Drowsy but will answer questions appropriately with repeated questioning. Lymphatic: no lymphedema Results & Data ([facility]) Vital Signs (Past 12 Hours) Vital Signs Temp Pulse Pulse Resp BP BP BP 04/28/22 08:10 36.6 C 63 16 94/54 L 04/28/22 00:43 65 17 145/85 H 04/27/22 22:50 36.4 C L 70 18 168/96 H 04/27/22 22:14 62 16 141/81 H 04/27/22 22:05 60 16 141/81 H Pulse Ox O2 Del Method 04/28/22 08:10 91 Room Air 04/28/22 00:43 98 Room Air 04/27/22 22:50 99 Room Air 04/27/22 22:14 98 Room Air 04/27/22 22:05 97 Room Air Diagnostic Findings MRCP CLINICAL HISTORY: acute saud, elevated LFTs, bile dilatation TECHNIQUE: Utilizing a 1.5 Karli magnet and dedicated coil, multiplanar, multiecho imaging of the upper abdomen was performed utilizing heavily T2 weighted pulsing sequences without IV contrast. COMPARISON STUDY: CT of the abdomen and pelvis April 27, 2022. FINDINGS: Numerous gallstones within the gallbladder are present. The gallbladder is moderately distended. There is minimal pericholecystic fluid. There is also trace perihepatic fluid and a trace right pleural effusion. Mild dilatation of the common bile duct is noted, measuring 7 mm in caliber. Note is made of a 5 mm x 2 mm elongated intraluminal focus within the distal common bile duct suggestive of a distal common bile duct calculus. Pancreas divisum is noted. There is no peripancreatic fluid. No pancreatic ductal dilatation is present. No hepatic lesions are identified on this unenhanced exam. 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 No abdominal lymphadenopathy is present. Caliber of visualized small and large bowel are normal. IMPRESSION: 1. Cholelithiasis with gallbladder distention and trace pericholecystic fluid. These findings favor acute cholecystitis. 2. 5 mm x 2 mm intraluminal focus within the distal common bile duct consistent with a common bile duct calculus. 3. Pancreas divisum.
[2022-04-28] MEDS ORDERED: DESVENLAFAXINE SUCCINATE 100 MG PO SCH (09:00)
--- NOTE | 2022-04-28 09:29 | Surgery Consultation ---
Date of Consultation April 28, 2022 History of Present Illness Reason for Consultation: Cholecystitis with choledocholithiasis Requesting Physician: Marbin Wilhelm MD Attending Physician: Julia Mckeon MD Allergies Allergy/AdvReac Type Severity Reaction Status Date / Time venlafaxine Allergy Severe SOB Verified 04/27/22 19:10 adhesive AdvReac Mild CAUSES RASH Verified 04/27/22 19:10 Home Medications Medication Instructions Recorded Confirmed Type zolpidem 10 mg tablet 10 mg PO HS 04/19/19 04/27/22 History gabapentin 300 mg capsule 900 mg PO HS 11/03/20 04/27/22 History omeprazole 40 mg capsule,delayed 40 mg PO QAM 04/12/21 04/27/22 History release eletriptan 40 mg tablet (Relpax) 40 mg PO .COMPLEX PRN migraine 10/28/21 04/27/22 Rx headache #9 tabs galcanezumab-gnlm 120 mg/mL 120 mg subcut MONTHLY 30 days #1 mL 10/28/21 04/27/22 Rx subcutaneous pen injector (Emgality Pen) ondansetron HCl 4 mg tablet 4 mg PO DAILY PRN nausea and 10/28/21 04/27/22 Rx vomiting #30 tabs topiramate 200 mg tablet 200 mg PO BID #60 tabs 10/28/21 04/27/22 Rx insulin syringe-needle U-100 1 mL #100 ea 11/19/21 11/19/21 Rx 25 x 1" (BD Insulin Syringe) cyanocobalamin (vitamin B-12) 1,000 mcg IM MONTHLY 30 days #1 mL 04/11/22 04/27/22 Rx 1,000 mcg/mL injection solution baclofen 20 mg tablet 40 mg PO HS 04/27/22 04/27/22 History buspirone 15 mg tablet 15 mg PO TID 04/27/22 04/27/22 History desvenlafaxine succinate 100 mg 100 mg PO DAILY 04/27/22 04/27/22 History tablet,extended release 24 hr desvenlafaxine succinate 50 mg 50 mg PO DAILY 04/27/22 04/27/22 History tablet,extended release 24 hr propranolol 120 mg capsule,24 120 mg PO HS 04/27/22 04/27/22 History hr,extended release varenicline 1 mg tablet (Chantix) 1 mg PO BID 04/27/22 04/27/22 History ziprasidone HCl 40 mg capsule 40 mg PO QAM 04/27/22 04/27/22 History ziprasidone HCl 80 mg capsule 80 mg PO HS 04/27/22 04/27/22 History Patient History Medical History Chronic migraine with aura Chronic pain "MOSTLY BACK PAIN" Current smoker Depression with anxiety Fibromyalgia GERD (gastroesophageal reflux disease) Hyperlipidemia Insomnia Left lumbar radiculopathy Migraine Prediabetes RLS (restless legs syndrome) Surgical History History of section X1 History of colonoscopy History of endometrial ablation History of surgery on arm RT TENDON REPAIR NEAR ELBOW History of tooth extraction Family History Mother Hypercholesteremia Hypertension Father Hypercholesteremia Hypertension Prostate cancer Other No pertinent family history Social History Smoking Status: Former smoker Tobacco Type: Cigarettes Cigarettes Per Day: 1-4 per cigs per day; Second Hand Exposure: No; Do You Dip or Chew Tobacco: No; Tobacco Cessation Education Requested by Patient: No Hx Alcohol Use: No Hx Substance Use: No Preferred Language: Polish Communication Ability: Effective Visual Impairment: No Limitations Hearing Ability: Normal Disease Education Specialist Required: No Beliefs That Will Affect Care: None marital status: Current Living Situation: Family Current Living Situation Comment: home with Mother and Daughter current occupational status: unemployed Other Information That Helps Us Care for You: No Feels Safe at Home: Yes Safety Concerns: Feels Safe At This Time Assistive Devices: Contacts, Denture - Upper, Denture - Lower and Glasses Results & Data ([facility]) Vital Signs (Past 12 Hours) Vital Signs Temp Pulse Pulse Resp BP BP BP 04/28/22 08:10 36.6 C 63 16 94/54 L 04/28/22 00:43 65 17 145/85 H 04/27/22 22:50 36.4 C L 70 18 168/96 H 04/27/22 22:14 62 16 141/81 H 04/27/22 22:05 60 16 141/81 H Pulse Ox O2 Del Method 04/28/22 08:10 91 Room Air 04/28/22 00:43 98 Room Air 04/27/22 22:50 99 Room Air 04/27/22 22:14 98 Room Air 04/27/22 22:05 97 Room Air Diagnostic Findings ABDOMEN AND PELVIS CT WITH IV CONTRAST CT DOSE: 842.62 mGycm HISTORY: epigastric/back pain TECHNIQUE: Multiaxial CT images of the abdomen and pelvis were performed following the use of intravenous contrast. A dose lowering technique was utilized adhering to the principles of ALARA. COMPARISON STUDY: Abdomen and pelvis CT 06/23/2019. FINDINGS: The lung bases are clear. No pneumoperitoneum. No pneumatosis. No fractures within the visualized osseous structures. The bladder, uterus, bilateral adnexa are within normal limits. There is trace pelvic free fluid. No bowel wall thickening or obstruction. The appendix is mildly dilated at 8.7 mm but completely fills with gas and there is no periappendiceal fat stranding. Therefore, this is likely within normal limits. No hepatic or splenic masses. The adrenal glands, pancreas, and kidneys are within normal limits. No ureteral stones. No hydronephrosis. No retroperitoneal lymphadenopathy. The main portal vein is patent. There is mild central intrahepatic bile duct dilatation which has progressed. There is also progressive gallbladder distention with minimal adjacent fat stranding/edema. Normal caliber common bile duct. Therefore, these findings are suspicious for a developing acute cholecystitis IMPRESSION: 1. Progressive distention of the gallbladder with minimal adjacent fat stranding/edema and mild central intrahepatic bile duct dilatation. This is suspicious for a developing acute cholecystitis. Surgical consultation recommended. 2. No bowel wall thickening or obstruction. 3. Trace pelvic free fluid. 4. Additional findings as described above.
[2022-04-28] MEDS ORDERED: PROPOFOL IV EMULSION 10 MG/ML 20 ML VIAL IV ONE (09:32)
[2022-04-28] MEDS ORDERED: fentaNYL citrate 100 MCG/2 ML VIAL ONE ×2 (09:32→12:49)
[2022-04-28] MEDS ORDERED: LIDOCAINE 2% MPF LOCAL 5 ML VIAL INFIL ONE (09:32)
[2022-04-28] MEDS ORDERED: ONDANSETRON INJ 2 MG/ML 2 ML VIAL ONE (09:32)
[2022-04-28] MEDS ORDERED: POTASSIUM CHLORIDE / WTR 10 MEQ/100 ML PLCT IV SCH (10:30)
[2022-04-28] MEDS ORDERED: ePHEDrine sulfate 50 MG/ML AMP IV PRN (10:39)
[2022-04-28] MEDS ORDERED: ATROPINE SULFATE 0.1 MG/ML 10ML SYR IV PRN (10:39)
[2022-04-28] MEDS ORDERED: fentaNYL citrate 100 MCG/2 ML VIAL IV PRN (10:39)
[2022-04-28] MEDS ORDERED: ONDANSETRON INJ 2 MG/ML 2 ML VIAL IV PRN (10:39)
--- NOTE | 2022-04-28 10:39 | Anesthesiology Consultation ---
Date of Service April 28, 2022 Assessment & Plan Chart Review Chart Review: Acceptable Risk for Surgery and Patient NOT seen in Pre Admission Testing Consults Requested none ASA ASA2 Proposed Anesthesia Anesthesia Type: General Risk / Benefits Reviewed With: PT / POA / Parent / Guardian, Accepts Plan and Informed Consent Obtained History Surgery Operation Date: 04/28/22 07:00 Proposed Procedures p Endoscopic Retrograde Cholangiopancreatogram - Jigna Call, DO Height/Weight Height: 5 ft 6 in Weight: 79.1 kg Allergies Allergy/AdvReac Type Severity Reaction Status Date / Time venlafaxine Allergy Severe SOB Verified 04/27/22 19:10 adhesive AdvReac Mild CAUSES RASH Verified 04/27/22 19:10 Medications Home Medications Medication Instructions Recorded Confirmed Last Taken zolpidem 10 mg tablet 10 mg PO HS 04/19/19 04/27/22 04/26/22 21:30 gabapentin 300 mg capsule 900 mg PO HS 11/03/20 04/27/22 04/26/22 21:30 omeprazole 40 mg capsule,delayed 40 mg PO QAM 04/12/21 04/27/22 04/27/22 08:00 release eletriptan 40 mg tablet (Relpax) 40 mg PO .COMPLEX PRN migraine 10/28/21 04/27/22 Unknown headache #9 tabs galcanezumab-gnlm 120 mg/mL 120 mg subcut MONTHLY 30 days #1 mL 10/28/21 04/27/22 04/17/22 subcutaneous pen injector (Emgality Pen) ondansetron HCl 4 mg tablet 4 mg PO DAILY PRN nausea and 10/28/21 04/27/22 Unknown vomiting #30 tabs topiramate 200 mg tablet 200 mg PO BID #60 tabs 10/28/21 04/27/22 04/27/22 09:00 insulin syringe-needle U-100 1 mL #100 ea 11/19/21 11/19/21 Unknown 25 x 1" (BD Insulin Syringe) cyanocobalamin (vitamin B-12) 1,000 mcg IM MONTHLY 30 days #1 mL 04/11/22 04/27/22 04/17/22 1,000 mcg/mL injection solution baclofen 20 mg tablet 40 mg PO HS 04/27/22 04/27/22 04/26/22 buspirone 15 mg tablet 15 mg PO TID 04/27/22 04/27/22 04/26/22 21:30 desvenlafaxine succinate 100 mg 100 mg PO DAILY 04/27/22 04/27/22 Unknown tablet,extended release 24 hr desvenlafaxine succinate 50 mg 50 mg PO DAILY 04/27/22 04/27/22 Unknown tablet,extended release 24 hr propranolol 120 mg capsule,24 120 mg PO 04/27/22 04/27/22 04/26/22 21:30 hr,extended release varenicline 1 mg tablet (Chantix) 1 mg PO BID 04/27/22 04/27/22 04/26/22 18:30 ziprasidone HCl 40 mg capsule 40 mg PO QAM 04/27/22 04/27/22 04/27/22 09:00 ziprasidone HCl 80 mg capsule 80 mg PO 04/27/22 04/27/22 04/26/22 21:30 Active Medications Generic Name Dose Route Start Last Admin Trade Name Freq PRN Reason Stop Dose Admin Baclofen 40 mg 04/27/22 23:00 04/28/22 00:40 Baclofen 20 Mg Tab PO 05/27/22 22:59 40 mg HS ISAAC Administration Buspirone HCl 15 mg 04/27/22 23:00 04/28/22 00:39 Buspirone 15 Mg Tab PO 05/27/22 22:59 15 mg TID ISAAC Administration Gabapentin 900 mg 04/27/22 23:00 04/28/22 00:40 Gabapentin 300 Mg Cap PO 05/27/22 22:59 900 mg HS ISAAC Administration Hydromorphone HCl 0.5 mg 04/28/22 00:32 04/28/22 01:03 Hydromorphone Inj 0.5 Mg/0.5 Ml Syr IV 05/12/22 00:31 0.5 mg Q2H PRN Administration Pain Piperacillin Sod/Tazobactam 115 mls @ 28.75 mls/hr 04/28/22 00:30 04/28/22 08:00 Sod 3.375 gm/ Dextrose IV 05/08/22 00:29 28.8 mls/hr Q8H ISAAC Administration Protocol Lactated Ringer's 1,000 mls @ 125 mls/hr 04/28/22 00:30 04/28/22 08:39 Lr IV 05/28/22 00:29 125 mls/hr .Q8H ISAAC Administration Miscellaneous 1 each 04/28/22 00:45 04/28/22 07:55 Pristiq~Order Awaiting Action N/A 05/28/22 00:44 Not Given QS ISAAC Propranolol HCl 120 mg 04/27/22 23:00 04/28/22 00:39 Propranolol Hcl 60 Mg [place] PO 05/27/22 22:59 120 mg HS ISAAC Administration Topiramate 200 mg 04/27/22 23:00 04/28/22 00:40 Topiramate 100 Mg Tab PO 05/27/22 22:59 200 mg BID ISAAC Administration Ziprasidone 80 mg 04/27/22 23:00 04/28/22 00:40 Ziprasidone Hcl 80 Mg Cap PO 05/27/22 22:59 80 mg HS ISAAC Administration Zolpidem Tartrate 10 mg 04/27/22 23:00 04/27/22 23:45 Zolpidem Tartrate 10 Mg Tab PO 05/27/22 22:59 10 mg HS ISAAC Administration NPO Date Last Intake of Fluids: 04/27/22 Time Last Intake of Fluids: 21:00 Date Last Intake of Solids: 04/27/22 Time Last Intake of Solids: 21:00 Past Medical History Medical History Chronic migraine with aura Chronic pain "MOSTLY BACK PAIN" Current smoker Depression with anxiety Fibromyalgia GERD (gastroesophageal reflux disease) Hyperlipidemia Insomnia Left lumbar radiculopathy Migraine Prediabetes RLS (restless legs syndrome) Exercise / Class Metabolic Activity II 4-5 Yardwork/Stairs/Walk up hill Past Family History Family History Mother Hypercholesteremia Hypertension Father Hypercholesteremia Hypertension Prostate cancer Other No pertinent family history Past Surgical History Surgical History History of section X1 History of colonoscopy History of endometrial ablation History of surgery on arm RT TENDON REPAIR NEAR ELBOW History of tooth extraction Past Anesthesia History No Hx of Anesthesia Complications and No Family Hx of Anesthesia Complications History of PONV No Hx of PONV and No Hx of Motion Sickness Social History Smoking Status: Former smoker tobacco type: cigarettes Smoking cigarettes per day: 1-4 per cigs per day Do You Dip or Chew Tobacco: No Hx Alcohol Use: No Hx Substance Use: No substance use type: does not use Physical Exam Vital Signs Last Vital Signs Temp 36.9 C 04/28/22 09:50 Pulse 66 04/28/22 09:50 Resp 16 04/28/22 09:50 BP 102/59 L 04/28/22 09:50 Pulse Ox 93 04/28/22 09:50 O2 Del Method 04/28/22 09:50 ENMT Mouth: no dentition abnormality Thyromental Distance: > or= 3.5 Finger Breadths Mallampati Class: II Neck normal visual inspection Respiratory normal respiratory effort Auscultation: lungs clear to auscultation bilaterally Cardiovascular Rate/Rhythm: regular rate and regular rhythm Psychiatric Orientation: alert Testing Laboratory Results 04/28/22 07:14 04/28/22 07:14 PT 10.2 Seconds (9.0-12.0) 04/27/22 14:45 INR 1.0 (0.9-1.1) 04/27/22 14:45 APTT 27.9 Seconds (21.0-31.0) 04/27/22 14:45
--- NOTE | 2022-04-28 10:45 | History & Physical Bridge Note ---
Date of Service April 28, 2022 History & Physical Bridge Note I have examined the patient, reviewed the History & Physical and in the interval since the performance of the History & Physical I have noted the following changes of clinical significance: no changes noted
[2022-04-28] MEDS ORDERED: DEXAMETHASONE SOD INJ 4 MG/ML VIAL ONE (10:53)
[2022-04-28] MEDS ORDERED: ROCURONIUM BROMIDE 10 MG/ML 5 ML VIAL IV ONE (10:53)
[2022-04-28] MEDS ORDERED: MIDAZOLAM HCL 1 MG/ML 2ML VIAL ONE (10:54)
[2022-04-28] MEDS ORDERED: INDOMETHACIN 50 MG SUPP PR ONE (11:00)
[2022-04-28] MEDS ORDERED: ACETAMINOPHEN 1000 MG/100 ML IV IV ONE (11:09)
--- NOTE | 2022-04-28 11:17 | History & Physical Report ---
Date of Service April 28, 2022 Assessment & Plan (1) Acute cholecystitis: (2) Choledocholithiasis with acute cholecystitis: Plan 51-year-old woman with acute cholecystitis and choledocholithiasis. I had a discussion with her about laparoscopic cholecystectomy at the same time as her ERCP. We discussed risks and benefits as well as postoperative recovery and restrictions. All her questions were answered and she is agreeable to proceed. We will take her to the operating room at the earliest convenience for combined ERCP with laparoscopic cholecystectomy. Consent has been obtained. Admission and Anticipated Discharge Date Admission Date: April 27, 2022 History of Present Illness Primary Care Provider: Berto Grijalva 51-year-old woman presents with 1 day history of severe right upper quadrant abdominal pain, nausea and vomiting. She was found to have gallstones, acute cholecystitis, choledocholithiasis. She denies fevers and chills. She denies this happening in the past. Bilirubin 3.1. She is scheduled for ERCP. We are asked to consult for possible laparoscopic cholecystectomy at the time of ERCP. Allergies Allergy/AdvReac Type Severity Reaction Status Date / Time venlafaxine Allergy Severe SOB Verified 04/27/22 19:10 adhesive AdvReac Mild CAUSES RASH Verified 04/27/22 19:10 Home Medications Medication Instructions Recorded Confirmed Type zolpidem 10 mg tablet 10 mg PO HS 04/19/19 04/27/22 History gabapentin 300 mg capsule 900 mg PO HS 11/03/20 04/27/22 History omeprazole 40 mg capsule,delayed 40 mg PO QAM 04/12/21 04/27/22 History release eletriptan 40 mg tablet (Relpax) 40 mg PO .COMPLEX PRN migraine 10/28/21 04/27/22 Rx headache #9 tabs galcanezumab-gnlm 120 mg/mL 120 mg subcut MONTHLY 30 days #1 mL 10/28/21 04/27/22 Rx subcutaneous pen injector (Emgality Pen) ondansetron HCl 4 mg tablet 4 mg PO DAILY PRN nausea and 10/28/21 04/27/22 Rx vomiting #30 tabs topiramate 200 mg tablet 200 mg PO BID #60 tabs 10/28/21 04/27/22 Rx insulin syringe-needle U-100 1 mL #100 ea 11/19/21 11/19/21 Rx 25 x 1" (BD Insulin Syringe) cyanocobalamin (vitamin B-12) 1,000 mcg IM MONTHLY 30 days #1 mL 04/11/22 04/27/22 Rx 1,000 mcg/mL injection solution baclofen 20 mg tablet 40 mg PO HS 04/27/22 04/27/22 History buspirone 15 mg tablet 15 mg PO TID 04/27/22 04/27/22 History desvenlafaxine succinate 100 mg 100 mg PO DAILY 04/27/22 04/27/22 History tablet,extended release 24 hr desvenlafaxine succinate 50 mg 50 mg PO DAILY 04/27/22 04/27/22 History tablet,extended release 24 hr propranolol 120 mg capsule,24 120 mg PO HS 04/27/22 04/27/22 History hr,extended release varenicline 1 mg tablet (Chantix) 1 mg PO BID 04/27/22 04/27/22 History ziprasidone HCl 40 mg capsule 40 mg PO QAM 04/27/22 04/27/22 History ziprasidone HCl 80 mg capsule 80 mg PO HS 04/27/22 04/27/22 History Past Med/Surg History Medical History Chronic migraine with aura Chronic pain "MOSTLY BACK PAIN" Current smoker Depression with anxiety Fibromyalgia GERD (gastroesophageal reflux disease) Hyperlipidemia Insomnia Left lumbar radiculopathy Migraine Prediabetes RLS (restless legs syndrome) Surgical History History of section X1 History of colonoscopy History of endometrial ablation History of surgery on arm RT TENDON REPAIR NEAR ELBOW History of tooth extraction Family History Mother Hypercholesteremia Hypertension Father Hypercholesteremia Hypertension Prostate cancer Other No pertinent family history Social History Smoking Status: Former smoker Tobacco Type: Cigarettes Cigarettes Per Day: 1-4 per cigs per day; Second Hand Exposure: No; Do You Dip or Chew Tobacco: No; Tobacco Cessation Education Requested by Patient: No Hx Alcohol Use: No Hx Substance Use: No Preferred Language: Cook Islander Communication Ability: Effective Visual Impairment: No Limitations Hearing Ability: Normal Package Sorter Required: No Beliefs That Will Affect Care: None marital status: Current Living Situation: Family Current Living Situation Comment: home with Mother and Daughter current occupational status: unemployed Other Information That Helps Us Care for You: No Feels Safe at Home: Yes Safety Concerns: Feels Safe At This Time Assistive Devices: Contacts, Denture - Upper, Denture - Lower and Glasses Review of Systems Review of Systems: All systems reviewed & are unremarkable except as noted in HPI & below Physical Exam Constitutional: WD/WN, vitals as above Neck: trachea midline, no thyromegaly Respiratory: normal respiratory effort, lungs clear to auscultation Cardiovascular: RRR, no murmur, no edema Gastrointestinal (Abdomen): normal bowel sounds, soft, nontender, no hepatosplenomegaly Skin: no rashes, warm and dry Psychiatric: A+Ox3, euthymic affect Results & Data Results & Data ([facility]) Vital Signs (Past 12 Hours) Vital Signs Temp Pulse Resp BP BP Pulse Ox O2 Del Method 04/28/22 09:50 36.9 C 66 16 102/59 L 93 Room Air 04/28/22 08:10 36.6 C 63 16 94/54 L 91 Room Air 04/28/22 00:43 65 17 145/85 H 98 Room Air Laboratory Results 04/28/22 04/28/22 04/27/22 Range/Units 07:14 07:14 18:26 WBC 5.09 (4.8-10.8) K/ul RBC 3.48 L (3.93-5.22) M/uL Hgb 11.4 L (12.0-16.0) g/dl Hct 33.3 L (34.1-44.9) % MCV 95.7 (80.0-100.0) fL MCH 32.8 (25.0-34.0) pg MCHC 34.2 (32.0-36.0) g/dL RDW Std Deviation 43.9 (36.4-46.3) fL RDW Coeff of Nicki 12.7 (11.5-14.5) % Plt Count 240 (130-400) K/uL MPV 9.9 (9.4-12.3) fL Immature Gran % (Auto) 0.2 % Neut % (Auto) 56.8 % Lymph % (Auto) 31.6 % [place] % (Auto) 7.5 % Eos % (Auto) 3.7 % Baso % (Auto) 0.2 % Neut # (Auto) 2.89 (1.4-6.5) K/uL Lymph # (Auto) 1.61 (1.2-3.4) K/uL [place] # (Auto) 0.38 (0.24-0.82) K/uL Eos # (Auto) 0.19 (0-0.50) K/uL Baso # (Auto) 0.01 (0-0.2) K/uL Immature Gran # (Auto) 0.01 (0.00-0.02) K/uL PT (9.0-12.0) Seconds INR (0.9-1.1) APTT (21.0-31.0) Seconds PTT Ratio Sodium 141 (136-145) mmol/L Potassium 3.3 L (3.5-5.1) mmol/L Chloride 110 H (98-107) mmol/L Carbon Dioxide 26 (21-32) mmol/L Anion Gap 5 (3-11) BUN 5 L (6-23) mg/dl Creatinine 0.82 (0.6-1.2) mg/dl Est Cr Clr Drug Dosing 87.1 Est GFR ( Amer) 96.7 ml/min Est GFR (Non-Af Amer) 83.4 ml/min BUN/Creatinine Ratio 6.1 L (10-20) Glucose 116 H (70-99(Fasting)) mg/dl Calcium 8.8 (8.5-10.1) mg/dl Total Bilirubin 3.1 H (0.2-1.0) mg/dl AST 120 H (13-39) U/L ALT 117 H (7-52) U/L Alkaline Phosphatase 107 H (34-104) U/L Troponin I High Sens (0-14) pg/ml Total Protein 5.7 L D (6.0-8.3) gm/dl Albumin 3.5 (3.4-5.0) gm/dl Globulin 2.2 L (2.5-4.0) gm/dl Albumin/Globulin Ratio 1.6 (0.9-2) Lipase (11-82) U/L SARS-CoV-2, RNA, NAAT NEGATIVE (NEGATIVE) 04/27/22 04/27/22 04/27/22 Range/Units 14:45 14:45 14:45 WBC 7.86 (4.8-10.8) K/ul RBC 4.20 (3.93-5.22) M/uL Hgb 13.9 (12.0-16.0) g/dl Hct 39.6 (34.1-44.9) % MCV 94.3 (80.0-100.0) fL MCH 33.1 (25.0-34.0) pg MCHC 35.1 (32.0-36.0) g/dL RDW Std Deviation 42.4 (36.4-46.3) fL RDW Coeff of Nicki 12.4 (11.5-14.5) % Plt Count 288 (130-400) K/uL MPV 9.5 (9.4-12.3) fL Immature Gran % (Auto) 0.4 % Neut % (Auto) 75.6 % Lymph % (Auto) 15.6 % [place] % (Auto) 6.5 % Eos % (Auto) 1.5 % Baso % (Auto) 0.4 % Neut # (Auto) 5.94 (1.4-6.5) K/uL Lymph # (Auto) 1.23 (1.2-3.4) K/uL [place] # (Auto) 0.51 (0.24-0.82) K/uL Eos # (Auto) 0.12 (0-0.50) K/uL Baso # (Auto) 0.03 (0-0.2) K/uL Immature Gran # (Auto) 0.03 H (0.00-0.02) K/uL PT 10.2 (9.0-12.0) Seconds INR 1.0 (0.9-1.1) APTT 27.9 (21.0-31.0) Seconds PTT Ratio 1.0 Sodium 138 (136-145) mmol/L Potassium 3.6 (3.5-5.1) mmol/L Chloride 106 (98-107) mmol/L Carbon Dioxide 22 (21-32) mmol/L Anion Gap 10 (3-11) BUN 8 (6-23) mg/dl Creatinine 0.90 (0.6-1.2) mg/dl Est Cr Clr Drug Dosing Not Reportable Est GFR ( Amer) 86.4 ml/min Est GFR (Non-Af Amer) 74.6 ml/min BUN/Creatinine Ratio 8.9 L (10-20) Glucose 149 H (70-99(Fasting)) mg/dl Calcium 10.2 H (8.5-10.1) mg/dl Total Bilirubin 2.1 H (0.2-1.0) mg/dl AST 243 H (13-39) U/L ALT 117 H (7-52) U/L Alkaline Phosphatase 102 (34-104) U/L Troponin I High Sens 5.1 (0-14) pg/ml Total Protein 7.3 (6.0-8.3) gm/dl Albumin 4.3 (3.4-5.0) gm/dl Globulin 3.0 (2.5-4.0) gm/dl Albumin/Globulin Ratio 1.4 (0.9-2) Lipase 27 (11-82) U/L SARS-CoV-2, RNA, NAAT (NEGATIVE) Diagnostic Findings MRCP CLINICAL HISTORY: acute saud, elevated LFTs, bile dilatation TECHNIQUE: Utilizing a 1.5 Karli magnet and dedicated coil, multiplanar, multiecho imaging of the upper abdomen was performed utilizing heavily T2 weighted pulsing sequences without IV contrast. COMPARISON STUDY: CT of the abdomen and pelvis April 27, 2022. FINDINGS: Numerous gallstones within the gallbladder are present. The gallbladder is moderately distended. There is minimal pericholecystic fluid. There is also trace perihepatic fluid and a trace right pleural effusion. Mild dilatation of the common bile duct is noted, measuring 7 mm in caliber. Note is made of a 5 mm x 2 mm elongated intraluminal focus within the distal common bile duct suggestive of a distal common bile duct calculus. Pancreas divisum is noted. There is no peripancreatic fluid. No pancreatic ductal dilatation is present. No hepatic lesions are identified on this unenhanced exam. 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 No abdominal lymphadenopathy is present. Caliber of visualized small and large bowel are normal. IMPRESSION: 1. Cholelithiasis with gallbladder distention and trace pericholecystic fluid. These findings favor acute cholecystitis. 2. 5 mm x 2 mm intraluminal focus within the distal common bile duct consistent with a common bile duct calculus. 3. Pancreas divisum. Code Status & VTE Plan VTE Prophylaxis Plan VTE Prophylaxis will be ordered: No Reason for no VTE drug order: Treatment not indicated (pre-operatively)
[2022-04-28] MEDS ORDERED: GLYCOPYRROLATE 0.2 MG/ML VIAL ONE (12:05)
[2022-04-28] MEDS ORDERED: NEOSTIGMINE METHYLSULFATE 1 MG/ML 10ML VIAL ONE (12:16)
[2022-04-28] MEDS ORDERED: BUPIVACAINE/EPINEPHRINE 0.25% 1:200,000 30 ML VIAL ONE (12:30)
--- NOTE | 2022-04-28 12:39 | Post Operative Brief Note ---
Immediate Post Op Note v1 Date of Surgery April 28, 2022 Pre & Post Diagnosis Operation Date: 04/28/22 07:00 Pre-Op Diagnosis: Common bile duct stones; Acute Cholecystitis I identified the patient and participated in the time-out.: Yes Procedure Operation Date: 04/28/22 07:00 Actual Procedures p Endoscopic Retrograde Cholangiopancreatogram - Jigna Call DO Surgeon Jigna Call, DO Utility Engineer None Estimated Blood Loss 0 Findings See Below (Choledocholithiasis)
[2022-04-28] MEDS ORDERED: SUGAMMADEX SODIUM 200 MG/2 ML VIAL IV ONE (12:44)
--- NOTE | 2022-04-28 12:46 | GI REPORT ---
Patient Name: Tamara Ramon Procedure Date: 04/28/2022 11:22 AM Date of : 1970 Admit Type: Inpatient Age: 51 Gender: Female Attending MD: Jigna Call DO Procedure: ERCP Providers: Jigna Call DO Referring MD: Julia Mckeon Md, Sundar Ibarra Indications: Abdominal pain of suspected biliary origin, Abnormal MRCP, Elevated liver enzymes Medicines: General Anesthesia Complications: No immediate complications. Estimated blood loss: Minimal. Estimated Blood Loss: Estimated blood loss was minimal. Procedure: Pre-Anesthesia Assessment: - Prior to the procedure, a History and Physical was performed, and patient medications, allergies and sensitivities were reviewed. The patient's tolerance of previous anesthesia was reviewed. - The risks and benefits of the procedure and the sedation options and risks were discussed with the patient. All questions were answered and informed consent was obtained. - Patient identification and proposed procedure were verified prior to the procedure by the physician, the nurse and the 3rd pressman. The procedure was verified in the procedure room. - Pre-procedure physical examination revealed no contraindications to sedation. - ASA Grade Assessment: III - A patient with severe systemic disease. - After reviewing the risks and benefits, the patient was deemed in satisfactory condition to undergo the procedure. - The anesthesia plan was to use general anesthesia. - Immediately prior to administration of medications, the patient was re-assessed for adequacy to receive sedatives. - The heart rate, respiratory rate, oxygen saturations, blood pressure, adequacy of pulmonary ventilation, and response to care were monitored throughout the procedure. - The physical status of the patient was re-assessed after the procedure. After obtaining informed consent, the scope was passed under direct vision. Throughout the procedure, the patient's blood pressure, pulse, and oxygen saturations were monitored continuously. The Duodenoscope was introduced through the mouth, and advanced to the duodenum and used to inject contrast into the bile duct and ventral pancreatic duct. The ERCP was accomplished without difficulty. The patient tolerated the procedure well. Findings: The felt hanger film was normal. The esophagus was successfully intubated under direct vision without detailed examination of the pharynx, larynx, and associated structures, and upper GI tract. The upper GI tract was grossly normal. The major papilla was adjacent to a diverticulum. The major papilla was congested. The major papilla was small. The ventral pancreatic duct was deeply cannulated with the short-nosed traction sphincterotome and guidewire, the PD was difficult to identify due to a common channel with the distal CBD, to help farhan the anatomy as small amount of contrast was injected. Contrast was injected. I personally interpreted the pancreatic duct images. Contrast extended to the proximal pancreatic duct. The bile duct was deeply cannulated with the short-nosed traction sphincterotome and guidewire. Contrast was injected. The lower third of the main bile duct contained filling defect(s) thought to be a stone. The biliary orifice was stenotic. This appeared benign. The main bile duct was mildly dilated. The largest diameter was 10 mm. Biliary sphincterotomy was made with a monofilament CleverCut distal wire sphincterotome using ERBE electrocautery. There was no post-sphincterotomy bleeding. To discover objects, the biliary tree was swept with a 15 mm balloon starting at the bifurcation. Sludge was swept from the duct. One stone was removed. No stones remained. One 5 Fr by 5 cm pancreatic stent with a full external pigtail and no internal flaps was placed 4.5 cm into the ventral pancreatic duct. Clear fluid flowed through the stent. The stent was in good position. One 10 Fr by 7 cm biliary stent with a single external flap and a single internal flap was placed 7 cm into the common bile duct. Sludge flowed through the stent. The stent was in good position. The endoscope was withdrawn from the patient. Indomethacin 100 mg was given via suppository to decrease the risk of post-ERCP pancreatitis (PEP). Impression: - A filling defect consistent with a stone was seen on the cholangiogram. - The entire main bile duct was mildly dilated. - Choledocholithiasis was found. Complete removal was accomplished by biliary sphincterotomy and balloon extraction. - One pancreatic stent was placed into the ventral pancreatic duct. - One biliary stent was placed into the common bile duct. - Indomethacin given to decrease risk of post-ERCP pancreatitis. Recommendation: - Avoid aspirin and nonsteroidal anti-inflammatory medicines today. - Clear liquid diet today. - Repeat ERCP in 6 weeks to remove stent. Jigna Call D.O. Jigna Call DO 04/28/2022 12:45:57 PM This report has been signed electronically. Note Initiated On: 04/28/2022 11:22 AM Number of Addenda: 0 I attest to the content of the Intraoperative Record and orders documented therein, exceptions below {[id number]}
--- NOTE | 2022-04-28 12:59 | Fluoroscopy Report ---
FL ERCP biliary ductal CLINICAL HISTORY: ERCP COMPARISON STUDY: MRCP 04/27/2022. FLUOROSCOPY TIME: 1 minute and 33 seconds. FINDINGS: 53 fluoroscopic spot images of the right upper quadrant were submitted for review. The ampu lla was cannulated and contrast was injected into the common bile duct. This is followed by placement of a common bile duct stent. A main pancreatic duct stent was also placed. IMPRESSION: Fluoroscopic assistance provided for placement of common bile duct and main pancreatic du ct stents. ACT 112: Negative or not required by law. Electronically signed by: Joey Layton M.D. 04/28/2022 12:57 PM
--- NOTE | 2022-04-28 13:31 | Operative Report ---
Post Operative Report Pre & Post Diagnosis Operation Date: 04/28/22 07:00 Pre-Op Diagnosis: Common bile duct stones; Acute Cholecystitis Operation Date: 04/29/22 09:40 <No data on this case meets the specified criteria> I identified the patient and participated in the time-out.: Yes Procedure Operation Date: 04/28/22 07:00 Actual Procedures p Endoscopic Retrograde Cholangiopancreatogram - Jigna Call DO s Laparoscopic Cholecystectomy(Not Applicable) - Sundar Ibarra MD Operation Date: 04/29/22 09:40 <No data on this case meets the specified criteria> Surgeon Sundar Ibarra MD Janitor BAKARI Ulloa assisted with tissue retraction, camera op, closure Estimated Blood Loss 0 Findings Consistent with Post-Op Diagnosis Acute cholecystitis Specimens Gallbladder Drains None Anesthesia Type General Complications No immediate complications Description of Procedure The patient was taken to the operating room, and placed supine on the operating table. A timeout was performed, perioperative antibiotics were administered, SCD boots were placed. After adequate anesthesia and analgesia was obtained, the abdomen was prepped and draped in the normal sterile fashion. Local anesthetic was injected into and around the proposed incision sites. An incision was made with a 15 blade scalpel in the supraumbilical region and carried down to the level of the fascia. The fascia was grasped with a trach hook, and a varies needle was used to enter the abdominal cavity. The abdomen was insufflated to a pressure of 15 mmHg, and a 11 mm trocar was placed in this location. A 10 mm, 30 degree laparoscope was placed into the abdominal cavity, and the abdomen was surveyed. Two 5 mm trochars were placed along the right costal margin, and one 5 mm trocar was placed in the subxiphoid region under direct visualization. The gallbladder was grasped and retracted cephalad and laterally, exposing the triangle of Calot. Dissection began in the triangle with a combination of blunt dissection with the [place] dissector, and judicious use of the hook cautery. The cystic duct and cystic artery were dissected free circumferentially, and a critical v iew of safety was obtained. The cystic duct and cystic artery were clipped and transected, and the gallbladder was removed from the gallbladder fossa with the hook cautery. The camera was switched to a 5 mm, the gallbladder was placed in an Endo Catch bag, and removed via the supraumbilical port site. The camera was switched back to the 10 mm camera, and the abdomen was surveyed again. Hemostasis was checked and attended, and was excellent. The abdomen was copiously irrigated and suctioned free. Again hemostasis was checked and was excellent. All trochars were removed under direct visualization. The abdomen was desufflated. The fascia in the 11 mm port site was closed with a 0 Vicryl suture. The skin was closed with a running 4-0 Monocryl subcuticular stitch. Dermabond was applied. The patient tolerated the procedure without complication, and was transferred in stable condition to the PACU. All instrument, needle, and sponge counts were correct at the end of the case. My general assistant was necessary throughout the procedure for tissue retraction, possible camera operation, and closure of the wounds. I understand that section 1842(b)(7)(D) of the Social Security act generally prohibits Medicare physician fee schedule payment for the services of assistants at surgery in teaching hospitals when qualified residents are available to furnish such services. I certify that the services for which payment is claimed were medically necessary and that no qualified resident was available to perform the services. I further understand that these services are subject to postpay ment review by the Medicare carrier. I attest to the content of the Intraoperative Record and any orders documented therein. Any exceptions are noted below.
[2022-04-28] MEDS ORDERED: KETOROLAC 30 MG/ML VIAL ONE (14:05)
--- NOTE | 2022-04-28 15:30 | Anesthesiology Progress Note ---
Date of Service April 28, 2022 Anesthesia Post Procedure Vital Signs Vital Signs: Temp Pulse Pulse Pulse Resp BP BP 04/28/22 15:00 36.3 C L 59 L 13 168/86 H 04/28/22 14:50 56 L 8 L 169/84 H 04/28/22 14:20 57 L 7 L 152/75 H 04/28/22 14:30 55 L 7 L 156/80 H 04/28/22 14:10 54 L 12 157/79 H 04/28/22 14:01 36.0 C L 56 L 12 153/81 H 04/28/22 09:50 36.9 C 66 16 102/59 L 04/28/22 08:10 36.6 C 63 16 94/54 L 04/28/22 00:43 65 17 04/27/22 22:50 36.4 C L 70 18 04/27/22 22:14 62 16 141/81 H 04/27/22 22:05 60 16 04/27/22 19:37 67 16 04/27/22 17:47 04/27/22 16:40 04/27/22 16:37 57 L 22 BP Pulse Ox O2 Del Method O2 Flow Rate 04/28/22 15:00 98 Oxymask 3 04/28/22 14:50 100 Oxymask 5 04/28/22 14:20 99 Oxymask 5 04/28/22 14:30 99 Oxymask 5 04/28/22 14:10 99 Oxymask 5 04/28/22 14:01 97 Oxymask 5 04/28/22 09:50 93 Room Air 04/28/22 08:10 91 Room Air 04/28/22 00:43 145/85 H 98 Room Air 04/27/22 22:50 168/96 H 99 Room Air 04/27/22 22:14 98 Room Air 04/27/22 22:05 141/81 H 97 Room Air 04/27/22 19:37 157/84 H 98 Room Air 04/27/22 17:47 171/90 H 04/27/22 16:40 Room Air 04/27/22 16:37 196/116 H 100 Room Air Pain Intensity Chest: Pain Intensity: 3 Right Abdomen: Pain Intensity: 0 Bilateral Abdomen: Pain Intensity: 5 Transfer of Care Handoff Completed per policy Notes Mental Status: alert / awake / arousable Patient Amnestic to Procedure: Yes Nausea / Vomiting: adequately controlled Pain: adequately controlled Airway Patency, RR, SpO2: stable & adequate BP & HR: stable & adequate Hydration State: stable & adequate Anesthetic Complications: no major complications apparent
--- NOTE | 2022-04-28 19:30 | Hospitalist Progress Note ---
Date of Service April 28, 2022 Assessment & Plan (1) Choledocholithiasis with acute cholecystitis: Plan: RUQ pain in setting of dilatation of CBD and elevated LFTs. Lipase WNL Was admitted and started on IV Zofran, kept n.p.o. Now status post ERCP with removal of stones, sphincterotomy, and placement of stents in the CBD and pancreatic duct on 04/28 followed by laparoscopic cholecystectomy on 04/28 -Continue IV Zosyn (monitor for watery diarrhea given history of c. diff) -Appreciate GI and surgery consultations -Needs to return for ERCP and removal of biliary stents in [address] Call of [facility] GI -Keep on continuous pulse ox tonight given excessive drowsiness status post anesthesia -Hold home baclofen and Ambien for tonight, but okay to have scheduled Geodon and gabapentin -Clear liquids diet for now -Monitor for post ERCP pancreatitis -Postoperative surgical care as per surgery team -Pain medicine ordered -Avoid NSAIDs and aspirin as per GI -Follow LFTs in the morning (2) GERD (gastroesophageal reflux disease): Plan: Continue PPI (3) Back pain: Plan: Continue her usual gabapentin Hold home baclofen for back spasms due to excessive drowsiness (4) Migraines: Plan: Migraine prophylaxis - propranolol + Emgality + Tompax - continue these Eletriptan PRN for migraine No acute issues (5) Type 2 diabetes mellitus: Plan: Suspect historical diagnosis. Reports intentional 70lb weight loss. HbA1C 6.0 in March, no need to repeat this as within the last 3 months. On no outpatient medication for this. (6) Depression with anxiety: Plan: Continue her usual Ziprasidone, BuSpar Hold home Ambien due to excessive drowsiness from anesthesia and pain medicine Plan VTE Prophylaxis -SCDs Diet -clear liquids Disposition -continued stay on med/surg Admission and Anticipated Discharge Date Admission Date: April 27, 2022 Subjective Patient seen after return from PACU and was very drowsy but did wake up to answer some questions. Denies pain. Tolerated clear liquids. Review of Systems Review of Systems: All systems reviewed & are unremarkable except as noted in HPI & below Physical Exam Constitutional: WD/WN, vitals as above Neck: trachea midline, no thyromegaly Respiratory: normal respiratory effort, lungs clear to auscultation Cardiovascular: RRR, no murmur, no edema Chest (Breasts): Chest: normal inspection of chest Gastrointestinal (Abdomen): Inspection/Auscultation: normal bowel sounds; + abdomen abnormal to inspection (Dermabond over surgical wounds on abdomen) and abdomen not distended Percussion/Palpation: abdomen soft; abdomen nontender Musculoskeletal: Extremities: extremities normal to inspection; no cyanosis and no clubbing Skin: no rashes, warm and dry Neurologic: Very drowsy but would wake up and answer some questions Lymphatic: no lymphedema Results & Data Results & Data ([facility]) Vital Signs (Past 12 Hours) Vital Signs Temp Pulse Pulse Resp BP Pulse Ox Pulse Ox 04/28/22 18:23 36.5 C 69 16 166/88 H 95 04/28/22 17:42 36.8 C 80 18 168/92 H 93 04/28/22 17:29 36.8 C 67 16 170/94 H 96 04/28/22 16:42 36.4 C L 60 16 178/97 H 96 04/28/22 16:12 36.4 C L 58 L 16 173/94 H 94 04/28/22 16:12 95 04/28/22 15:45 36.3 C L 58 L 8 L 174/85 H 98 04/28/22 15:30 55 L 8 L 171/84 H 98 04/28/22 15:15 55 L 8 L 167/84 H 98 04/28/22 15:30 55 L 8 L 171/84 H 98 04/28/22 15:00 36.3 C L 59 L 13 168/86 H 98 04/28/22 14:50 56 L 8 L 169/84 H 100 04/28/22 14:20 57 L 7 L 152/75 H 99 04/28/22 14:30 55 L 7 L 156/80 H 99 04/28/22 14:10 54 L 12 157/79 H 99 04/28/22 14:01 36.0 C L 56 L 12 153/81 H 97 04/28/22 09:50 36.9 C 66 16 102/59 L 93 04/28/22 08:10 36.6 C 63 16 94/54 L 91 O2 Del Method O2 Del Method O2 Flow Rate 04/28/22 18:23 Room Air 04/28/22 17:42 Room Air 04/28/22 17:29 Room Air 04/28/22 16:42 Room Air 04/28/22 16:12 Room Air 04/28/22 16:12 Room Air 04/28/22 15:45 Room Air 04/28/22 15:30 Room Air 04/28/22 15:15 Oxymask 3 04/28/22 15:30 Oxymask 3 04/28/22 15:00 Oxymask 3 04/28/22 14:50 Oxymask 5 04/28/22 14:20 Oxymask 5 04/28/22 14:30 Oxymask 5 04/28/22 14:10 Oxymask 5 04/28/22 14:01 Oxymask 5 04/28/22 09:50 Room Air 04/28/22 08:10 Room Air Laboratory Results 04/28/22 04/28/22 Range/Units 07:14 07:14 WBC 5.09 (4.8-10.8) K/ul RBC 3.48 L (3.93-5.22) M/uL Hgb 11.4 L (12.0-16.0) g/dl Hct 33.3 L (34.1-44.9) % MCV 95.7 (80.0-100.0) fL MCH 32.8 (25.0-34.0) pg MCHC 34.2 (32.0-36.0) g/dL RDW Std Deviation 43.9 (36.4-46.3) fL RDW Coeff of Nicki 12.7 (11.5-14.5) % Plt Count 240 (130-400) K/uL MPV 9.9 (9.4-12.3) fL Immature Gran % (Auto) 0.2 % Neut % (Auto) 56.8 % Lymph % (Auto) 31.6 % [place] % (Auto) 7.5 % Eos % (Auto) 3.7 % Baso % (Auto) 0.2 % Neut # (Auto) 2.89 (1.4-6.5) K/uL Lymph # (Auto) 1.61 (1.2-3.4) K/uL [place] # (Auto) 0.38 (0.24-0.82) K/uL Eos # (Auto) 0.19 (0-0.50) K/uL Baso # (Auto) 0.01 (0-0.2) K/uL Immature Gran # (Auto) 0.01 (0.00-0.02) K/uL Sodium 141 (136-145) mmol/L Potassium 3.3 L (3.5-5.1) mmol/L Chloride 110 H (98-107) mmol/L Carbon Dioxide 26 (21-32) mmol/L Anion Gap 5 (3-11) BUN 5 L (6-23) mg/dl Creatinine 0.82 (0.6-1.2) mg/dl Est Cr Clr Drug Dosing 87.1 ml/min Est GFR ( Amer) 96.7 ml/min Est GFR (Non-Af Amer) 83.4 ml/min BUN/Creatinine Ratio 6.1 L (10-20) Glucose 116 H (70-99(Fasting)) mg/dl Calcium 8.8 (8.5-10.1) mg/dl Total Bilirubin 3.1 H (0.2-1.0) mg/dl AST 120 H (13-39) U/L ALT 117 H (7-52) U/L Alkaline Phosphatase 107 H (34-104) U/L Total Protein 5.7 L D (6.0-8.3) gm/dl Albumin 3.5 (3.4-5.0) gm/dl Globulin 2.2 L (2.5-4.0) gm/dl Albumin/Globulin Ratio 1.6 (0.9-2) PG Care Time/CCT Total # of Minutes Spent Total Time Spent with Patient: Total time spent is greater than 50% in coordination of care (as documented) at patient's floor/unit and/or counseling patient: Coding Level of Care Code 77143 Subseq Hosp Care Lvl 2 Diagnoses Choledocholithiasis with acute cholecystitis K80.42 GERD (gastroesophageal reflux disease) K21.9 Back pain M54.9 Migraines G43.009 Migraine type: without aura Status migrainosus presence: without status migrainosus Intractability: not intractable Type 2 diabetes mellitus E11.9 Depression with anxiety F41.8 (1) Migraines Migraine type: without aura Status migrainosus presence: without status dereje rainosus Intractability: not intractable Qualified Code(s): G43.009 - Migraine without aura, not intractable, without status migrainosus
[2022-04-28] MEDS ORDERED: Nursing to Pharmacy Communication SCH (20:15)
[2022-04-28] MEDS: POTASSIUM CHLORIDE / WTR 10 MEQ/100 ML PLCT IV SCH ×2 (20:37→22:39)
[2022-04-28] MEDS ORDERED: KETOROLAC 30 MG/ML VIAL IV PRN (23:59)
[2022-04-29] MEDS: PIPERACILLIN/TAZOBACTAM 3.375 GM in DEXTROSE 5% 100 ML IV SCH ×3 (00:58→16:45)
--- NOTE | 2022-04-29 02:17 | Communication Note ---
Date of Service: April 29, 2022 Night resident note 01:50- RN notified me of persistent confusion since patient returned from the OR for a lap/choley earlier in the day. Patient had confusion earlier in the day and meds were held in response. RN noted that patient was easily awoken but oriented only to person. I came upstairs to evaluate patient. Constitutional: tired-appearing, no acute distress CV: regular rhythm, no murmur appreciated, extremities well-perfused, no LE edema Resp: CTABL, no wheezes/rales/rhonchi appreciated, no increased work of breathing Skin: warm, dry, no rash appreciated Neuro: oriented to person and place only, not oriented to time or situation, perseverative thought process, CN2-12 grossly intact, strength 5/5 in UE and LE BL I ordered a stat CT head. I do not see any abnormalities on my read. [employer] read pending. Jonh Walker PGY-3 Resident Activity Tracking Resident Involvement: Resident Care Provided and Photographic Laboratory Supervisor Coverage Note Care Provided: Adult Hospital Medicine
--- NOTE | 2022-04-29 07:08 | CT Scan Report ---
HEAD CT NONCONTRAST CT DOSE: 614.27 mGy.cm HISTORY: Altered mental status. TECHNIQUE: Multiaxial CT images of the head were performed without the use of intravenous contrast. A utomated exposure control was utilized for this study. A dose lowering technique was utilized adheri ng to the principles of ALARA. Comparison: Head CT 07/01/2019. Findings: The paranasal sinuses and mastoid air cells are clear. The calvarium and skull base are int act. The ventricles and sulci are within normal limits. There is no mass, hematoma, midline shift, or acute infarct. Impression: No acute intracranial abnormality. ACT 112: Negative or not required by law. Electronically signed by: Joey Layton M.D. 04/29/2022 7:07 AM
[2022-04-29] MEDS: LACTATED RINGER'S 1,000 ML IV SCH (08:25)
[2022-04-29 08:30] LABS: Basophils # (auto) 0.02 K/uL (0-0.2); Basophils % (auto) 0.3 %; Eosinophils # (auto) 0.05 K/uL (0-0.50); Eosinophils % (auto) 0.7 %; Hematocrit (blood only) 35.2 % (34.1-44.9); Immature Granulocytes # (auto) 0.02 K/uL (0.00-0.02); Immature Granulocytes % (auto) 0.3 %; Lymphocytes # (auto) 2.22 K/uL (1.2-3.4); Mean Corpuscular Hgb Conc 34.1 g/dL (32.0-36.0); Mean Corpuscular Volume 96.7 fL (80.0-100.0); Monocytes # (auto) 0.49 K/uL (0.24-0.82); Monocytes % (auto) 6.8 %; Neutrophils # (auto) 4.37 K/uL (1.4-6.5); Neutrophils % (auto) 60.9 %; Platelet Count 247 K/uL (130-400); RDW Coefficient of Variation 12.8 % (11.5-14.5); RDW Standard Deviation 45.1 fL (36.4-46.3); Red Blood Count 3.64 M/uL (3.93-5.22); White Blood Count 7.17 K/ul (4.8-10.8)
[2022-04-29] MEDS: PANTOprazole 40 MG TAB PO SCH (08:34)
[2022-04-29] MEDS: TOPIRAMATE 100 MG TAB PO SCH ×2 (08:34→22:57)
[2022-04-29] MEDS: busPIRone 15 MG TAB PO SCH ×3 (08:34→22:55)
[2022-04-29 08:57] LABS: Albumin Level 3.4 gm/dl (3.4-5.0); BUN Creatinine Ratio 7.7 (10-20); Bilirubin Direct 0.5 mg/dl (0-0.2); Bilirubin,Total 1.2 mg/dl (0.2-1.0); Calcium 8.6 mg/dl (8.5-10.1); Creatinine Clr Calc Pharmacy 91.6 ml/min; Est GFR (African American) 102.7 ml/min; Est GFR (Non-African American) 88.6 ml/min; Magnesium 1.7 mg/dl (1.7-2.4); Potassium 3.5 mmol/L (3.5-5.1); Total Protein 5.7 gm/dl (6.0-8.3)
--- NOTE | 2022-04-29 09:51 | Gastroenterology Progress Note ---
Date of Service April 29, 2022 Assessment & Plan (1) Choledocholithiasis with acute cholecystitis: Plan: Pt is a 51 yo female w R sided abd pain, n/v symptoms, noted to have elevated LFTs, and CT, MRCP signs of cholecystitis, intrahepatic ductal dilation, and CBD stone. Appears drowsy this AM but had been given narcotics and other sedating psych meds overnight. On exam TTP over mid and R sided abd areas. S/P ERCP w choledocholithiasis removal, biliary sphincterectomy and biliary + pancreatic stents placements followed by lap cholecystectomy on 04/28 Doing well except abd pain, but no n/v, no fever, chills, LFTs trending down - Zosyn IV coverage; antibx coverage for at least 7 days - Diet advancement per surgery - Trend LFTs - Avoid NSAIDs and high dose asa for 5 days after sphincterotomy - Repeat ERCP in 6 week's time to remove stents - GI to sign off; pls recall prn Admission and Anticipated Discharge Date Admission Date: April 27, 2022 Supervising Physician Co-Signing Physician Notes i saw and evaluated the patient with DONG Bahena. She is s/p ERCP yesterday for choledocholithiasis which was removed via biliary sphincterotomy and balloon extraction. stents placed into CBD and pancreatic duct. This was followed by lap cholecystectomy. Today she is doing well but she does report di ffuse abdominal pain mostly in her lower abdomen. Her LFTs are improving today. Total bili 3.1-->1.2. Hemoglobin has remained stable. She is afebrile and HDS. PE: HEENT: sclera anicteric Respiratory: normal respiratory effort Abdomen: soft, diffuse tenderness to palpation, no rebound or guarding, 3 small surgical incisions c/d/i, + BS Extremities: no edema Impression: symptomatic choledocholithiasis and a positive MRCP with elevated LFTs s/p ERCP with stone removal and stent placement yesterday. LFTs improving today. Plan Continue to trend daily LFTs for improvement Will need repeat ERCP in 6 weeks for stent removal which has been ordered Advance diet per surgery (no contraindications from a GI standpoint) Avoid NSAIDs GI will sign off. Please call back with questions. Melonie Flanagan, DO Gastroenterology and Hepatology Subjective Pt co mid abd pain, no n/v, no fever, chills overnight. LFTs trending down Review of Systems Review of Systems: All systems reviewed & are unremarkable except as noted in HPI & below Physical Exam Constitutional: WD/WN, vitals as above well groomed, cooperative and comfortable Eyes: PERRL, conjunctivae normal, anicteric sclerae ENMT: external ear and nose normal, oropharynx normal Respiratory: normal respiratory effort, lungs clear to auscultation Cardiovascular: RRR, no murmur, no edema Gastrointestinal (Abdomen): Soft, surgical trochar insertion sites CDI. BS hypoactive, she reports passing flatus. TTP diffuse Skin: no rashes, warm and dry no jaundice Lymphatic: no lymphedema Results & Data ([facility]) Vital Signs (Past 12 Hours) Vital Signs Temp Pulse Resp BP Pulse Ox Pulse Ox O2 Del Method 04/29/22 06:57 37 C 79 14 142/76 H 97 Room Air 04/29/22 03:52 37 C 69 16 162/80 H 98 Room Air 04/28/22 22:52 97 04/28/22 22:00 36.7 C 65 16 159/81 H 98 Room Air 04/28/22 22:37 37.2 C 64 16 169/92 H 98 Room Air O2 Del Method 04/29/22 06:57 04/29/22 03:52 04/28/22 22:52 Room Air 04/28/22 22:00 04/28/22 22:37
--- NOTE | 2022-04-29 10:46 | Surgery Progress Note ---
Date of Service April 29, 2022 Assessment & Plan (1) Acute cholecystitis: (2) Choledocholithiasis with acute cholecystitis: Plan POD # 1 s/p ERCP with biliary sphincterotomy and stent placement x 2 and lap saud -afebrile, vss - lfts and t. bili trending down - postop pain, moderate - postop urinary retention, required straight cath last night - mild confusion this am in regards to her procedures yesterday but Head ct unremarkable. Likely due to anesthesia, narcotics, and her psych meds Plan: diet advanced to regular for lunch continue abx per GI for 7 days total encouraged ambulation and incentive spirometry bladder scan and straight cath as needed [facility] surgery covering this weekend Dr. Ibarra has seen and examined pt, agrees with above. Admission and Anticipated Discharge Date Admission Date: April 27, 2022 Subjective states she abdominal pain at surgical incisions no n,v having some pain up in the right chest area no shortness of breath passing gas unable to urinate last night per nurse had CT scan of Head last night due to altered mental status but normal. Also had urinary retention of 1000 ml on bladder scan and straight cath for 1300. Unable to urinate on own yet this am but feels like she has to. Physical Exam Constitutional: WD/WN, vitals as above no acute distress and not ill appearing Respiratory: normal respiratory effort; no respiratory distress Gastrointestinal (Abdomen): Inspection/Auscultation: abdomen normal to inspection and + abdominal surgical incision (clean/dry/intact with dermabond); abdomen not distended Percussion/Palpation: + abdomen tender (at incision sites approriate postop) and abdomen soft; no guarding and abdomen not rigid Skin: no rashes, warm and dry Psychiatric: Orientation: alert, oriented to person and oriented to place Eye Contact: good eye contact Results & Data ([facility]) Vital Signs (Past 12 Hours) Vital Signs Temp Pulse Resp BP Pulse Ox Pulse Ox O2 Del Method 04/29/22 06:57 37 C 79 14 142/76 H 97 Room Air 04/29/22 03:52 37 C 69 16 162/80 H 98 Room Air 04/28/22 22:52 97 O2 Del Method 04/29/22 06:57 04/29/22 03:52 04/28/22 22:52 Room Air Laboratory Results 04/29/22 04/29/22 Range/Units 07:41 07:41 WBC 7.17 (4.8-10.8) K/ul RBC 3.64 L (3.93-5.22) M/uL Hgb 12.0 (12.0-16.0) g/dl Hct 35.2 (34.1-44.9) % MCV 96.7 (80.0-100.0) fL MCH 33.0 (25.0-34.0) pg MCHC 34.1 (32.0-36.0) g/dL RDW Std Deviation 45.1 (36.4-46.3) fL RDW Coeff of Nicki 12.8 (11.5-14.5) % Plt Count 247 (130-400) K/uL MPV 10.0 (9.4-12.3) fL Immature Gran % (Auto) 0.3 % Neut % (Auto) 60.9 % Lymph % (Auto) 31.0 % [place] % (Auto) 6.8 % Eos % (Auto) 0.7 % Baso % (Auto) 0.3 % Neut # (Auto) 4.37 (1.4-6.5) K/uL Lymph # (Auto) 2.22 (1.2-3.4) K/uL [place] # (Auto) 0.49 (0.24-0.82) K/uL Eos # (Auto) 0.05 (0-0.50) K/uL Baso # (Auto) 0.02 (0-0.2) K/uL Immature Gran # (Auto) 0.02 (0.00-0.02) K/uL Sodium 143 (136-145) mmol/L Potassium 3.5 (3.5-5.1) mmol/L Chloride 111 H (98-107) mmol/L Carbon Dioxide 25 (21-32) mmol/L Anion Gap 7 (3-11) BUN 6 (6-23) mg/dl Creatinine 0.78 (0.6-1.2) mg/dl Est Cr Clr Drug Dosing 91.6 ml/min Est GFR ( Amer) 102.7 ml/min Est GFR (Non-Af Amer) 88.6 ml/min BUN/Creatinine Ratio 7.7 L (10-20) Glucose 113 H (70-99(Fasting)) mg/dl Calcium 8.6 (8.5-10.1) mg/dl Magnesium 1.7 (1.7-2.4) mg/dl Total Bilirubin 1.2 H D (0.2-1.0) mg/dl Direct Bilirubin 0.5 H (0-0.2) mg/dl AST 57 H (13-39) U/L ALT 92 H (7-52) U/L Alkaline Phosphatase 115 H (34-104) U/L Total Protein 5.7 L (6.0-8.3) gm/dl Albumin 3.4 (3.4-5.0) gm/dl
--- NOTE | 2022-04-29 10:59 | Hospitalist Progress Note ---
Date of Service April 29, 2022 Assessment & Plan (1) Choledocholithiasis with acute cholecystitis: Plan: P/w RUQ pain in setting of dilatation of CBD and elevated LFTs. Lipase WNL Was admitted and started on IV Zofran, kept n.p.o. Now status post ERCP with removal of stones, sphincterotomy, and placement of stents in the CBD and pancreatic duct on 04/28 followed by laparoscopic cholecystectomy on 04/28 Had excessive drowsiness after anesthesia, held home baclofen and Ambien, now improved but remains with flat affect and some perseveration on thoughts at times. Not sure if this is her baseline given underlying Psych issues -Continue IV Zosyn (monitor for watery diarrhea given history of c. diff) and then convert to po Augmentin on discharge to complete total 7 days tx -Appreciate GI and surgery consultations -Needs to return for ERCP and removal of biliary stents in [address] Call of [facility] -ok to restart home baclofen tonight to avoid withdrawal now that she is awake and alert -continue to hold Ambien -Surgery advanced diet to regular -Monitor for post ERCP pancreatitis -Postoperative surgical care as per surgery team -Pain medicine ordered-oxycodone and IV dilaudid but advised nurse to use oxycodone first -Avoid NSAIDs and aspirin as per GI x 5 days through 05/03 -Follow LFTs again in the morning -ICS, encouraged OOB and ambulation -can dc IVFs (2) GERD (gastroesophageal reflux disease): Plan: Continue PPI (3) Back pain: Plan: Continue her usual gabapentin ok to restart home baclofen for back spasms (4) Migraines: Plan: Migraine prophylaxis - propranolol + Emgality + Tompax - continue these Eletriptan PRN for migraine No acute issues (5) Type 2 diabetes mellitus: Plan: Suspect historical diagnosis. Reports intentional 70lb weight loss. HbA1C 6.0 in March, no need to repeat this as within the last 3 months. On no outpatient medication for this. (6) Depression with anxiety: Plan: Continue her usual Ziprasidone, BuSpar Hold home Ambien due to excessive drowsiness from anesthesia and pain medicine Plan VTE Prophylaxis -SCDs Disposition -continued stay on med/surg, improving, possible dc in 1-2 days depending on pain control, toleration of diet Admission and Anticipated Discharge Date Admission Date: April 27, 2022 Subjective Pt apparently was continuing to be lethargic and altered overnight, had neg head CT. ALso had to be straight cathed for 1300mL urine. This AM, is awake and alert, answering questions, but has very flat affect and insists she took all her usual medications last night even though I told her I had held her Ambien and baclofen due to excessive sedation. SHe is having abdominal pain but ate all of her breakfast. No flatus yet, no BM. Is asking for pain medicine. Review of Systems Review of Systems: All systems reviewed & are unremarkable except as noted in HPI & below Physical Exam Constitutional: WD/WN, vitals as above Eyes: + anicteric sclerae, PERRL and EOM intact bilaterally; no nystagmus Neck: trachea midline, no thyromegaly Respiratory: normal respiratory effort, lungs clear to auscultation Cardiovascular: RRR, no murmur, no edema Chest (Breasts): Chest: normal inspection of chest Gastrointestinal (Abdomen): Inspection/Auscultation: normal bowel sounds; + abdomen abnormal to inspection (Dermabond over surgical wounds on abdomen) and abdomen not distended Percussion/Palpation: + abdomen tender (around incision sites, soft) and abdomen soft; no guarding Musculoskeletal: Extremities: extremities normal to inspection; no cyanosis and no clubbing Skin: no rashes, warm and dry Neurologic: CN's II-XI intact bilaterally and + confused (mild); no focal motor deficits Speech / Cognition: normal speech Motor/Sensory: no tremor Psychiatric: Orientation: alert, oriented to person, oriented to place and cooperative Affect: + flat affect Lymphatic: no lymphedema Results & Data Results & Data ([facility]) Vital Signs (Past 12 Hours) Vital Signs Temp Pulse Resp BP Pulse Ox Pulse Ox O2 Del Method 04/29/22 06:57 37 C 79 14 142/76 H 97 Room Air 04/29/22 03:52 37 C 69 16 162/80 H 98 Room Air 04/28/22 22:52 97 O2 Del Method 04/29/22 06:57 04/29/22 03:52 04/28/22 22:52 Room Air Laboratory Results 04/29/22 04/29/22 Range/Units 07:41 07:41 WBC 7.17 (4.8-10.8) K/ul RBC 3.64 L (3.93-5.22) M/uL Hgb 12.0 (12.0-16.0) g/dl Hct 35.2 (34.1-44.9) % MCV 96.7 (80.0-100.0) fL MCH 33.0 (25.0-34.0) pg MCHC 34.1 (32.0-36.0) g/dL RDW Std Deviation 45.1 (36.4-46.3) fL RDW Coeff of Nicki 12.8 (11.5-14.5) % Plt Count 247 (130-400) K/uL MPV 10.0 (9.4-12.3) fL Immature Gran % (Auto) 0.3 % Neut % (Auto) 60.9 % Lymph % (Auto) 31.0 % [place] % (Auto) 6.8 % Eos % (Auto) 0.7 % Baso % (Auto) 0.3 % Neut # (Auto) 4.37 (1.4-6.5) K/uL Lymph # (Auto) 2.22 (1.2-3.4) K/uL [place] # (Auto) 0.49 (0.24-0.82) K/uL Eos # (Auto) 0.05 (0-0.50) K/uL Baso # (Auto) 0.02 (0-0.2) K/uL Immature Gran # (Auto) 0.02 (0.00-0.02) K/uL Sodium 143 (136-145) mmol/L Potassium 3.5 (3.5-5.1) mmol/L Chloride 111 H (98-107) mmol/L Carbon Dioxide 25 (21-32) mmol/L Anion Gap 7 (3-11) BUN 6 (6-23) mg/dl Creatinine 0.78 (0.6-1.2) mg/dl Est Cr Clr Drug Dosing 91.6 ml/min Est GFR ( Amer) 102.7 ml/min Est GFR (Non-Af Amer) 88.6 ml/min BUN/Creatinine Ratio 7.7 L (10-20) Glucose 113 H (70-99(Fasting)) mg/dl Calcium 8.6 (8.5-10.1) mg/dl Magnesium 1.7 (1.7-2.4) mg/dl Total Bilirubin 1.2 H D (0.2-1.0) mg/dl Direct Bilirubin 0.5 H (0-0.2) mg/dl AST 57 H (13-39) U/L ALT 92 H (7-52) U/L Alkaline Phosphatase 115 H (34-104) U/L Total Protein 5.7 L (6.0-8.3) gm/dl Albumin 3.4 (3.4-5.0) gm/dl PG Care Time/CCT Total # of Minutes Spent Total Time Spent with Patient: Total time spent is greater than 50% in coordination of care (as documented) at patient's floor/unit and/or counseling patient: Coding Level of Care Code 70496 Subseq Hosp Care Lvl 2 Diagnoses Choledocholithiasis with acute cholecystitis K80.42 GERD (gastroesophageal reflux disease) K21.9 Back pain M54.9 Migraines G43.009 Migraine type: without aura Status migrainosus presence: without status migrainosus Intractability: not intractable Type 2 diabetes mellitus E11.9 Depression with anxiety F41.8 (1) Migraines Migraine type: without aura Status migrainosus presence: without status migrainosus Intractability: not intractable Qualified Code(s): G43.009 - Migraine without aura, not intractable, without status migrainosus
[2022-04-29] MEDS: oxyCODONE HCL IR 5 MG TAB (IMMEDIATE RELEASE) PO PRN ×2 (12:12→16:17)
[2022-04-29] MEDS ORDERED: POLYETHYLENE (MIRALAX) 17 GM PACK PO PRN (15:33)
[2022-04-29] MEDS ORDERED: bisacodyL 10 MG SUPP PR PRN (15:33)
[2022-04-29] MEDS: DOCUSATE SODIUM/SENNA 50/8.6MG TAB PO SCH (16:45)
[2022-04-29] MEDS ORDERED: ZOLPIDEM TARTRATE 10 MG TAB PO ONE (22:23)
[2022-04-29] MEDS: GABAPENTIN 300 MG CAP PO SCH (22:57)
[2022-04-29] MEDS: BACLOFEN 20 MG TAB PO SCH (22:58)
[2022-04-29] MEDS: ziprasidone HCL 80 MG CAP PO SCH (23:00)
[2022-04-29] MEDS: PROPRANOLOL HCL 60 MG LA CAP PO SCH (23:00)
[2022-04-30] MEDS: oxyCODONE HCL IR 5 MG TAB (IMMEDIATE RELEASE) PO PRN ×2 (01:31→14:04)
[2022-04-30] MEDS: PIPERACILLIN/TAZOBACTAM 3.375 GM in DEXTROSE 5% 100 ML IV SCH ×2 (01:35→08:54)
--- NOTE | 2022-04-30 06:15 | Surgery Progress Note ---
Date of Service April 30, 2022 Assessment & Plan (1) Acute cholecystitis: Plan: Status post ERCP and laparoscopic cholecystectomy on 04/28/2022 (postop day #2) Continue analgesics Continue antiemetics Continue antibiotics in form of Zosyn while in the hospital Continue diet as tolerated Consider voiding trial prior to discharge Continue activity as able Check labs when available this morning which are pending Admission and Anticipated Discharge Date Admission Date: April 27, 2022 Supervising Physician Co-Signing Physician Notes I personally saw and evaluated the patient with Foreign Orozco PA-C and agree with the assessment and plan. 51-year-old female status post laparoscopic cholecystectomy and ERCP 2 days ago She is tolerating regular diet and passing flatus Her pain is well controlled and labs are stable She did have a Joy placed this morning, would leave in for 24 hours and take out tomorrow morning to attempt a voiding trial at that time If the Joy has to be replaced after voiding trial is failed, she may require discharge with Joy in place Will follow Subjective Patient is resting comfortably in bed. At the present time she denies any nausea or vomiting. She denies any significant abdominal pain. No fevers, shakes, chills noted. No shortness of breath reported. Issues noted with urinary retention requiring Joy catheter placement. Physical Exam Gastrointestinal (Abdomen): Abdomen is soft, nondistended, and nonrigid. Bowel sounds are present. Surgical incisions are clean, dry, intact Results & Data ([facility]) Vital Signs (Past 12 Hours) Vital Signs Temp Pulse Resp BP Pulse Ox O2 Del Method 04/29/22 21:00 Room Air 04/29/22 22:00 36.8 C 73 16 162/84 H 100 Room Air 04/29/22 23:05 36.8 C 77 16 172/95 H 96 Room Air PG Care Time/CCT Total # of Minutes Spent Total Time Spent with Patient: Total time spent is greater than 50% in coordination of care (as documented) at patient's floor/unit and/or counseling patient: Coding Level of Care Code None Diagnoses Acute cholecystitis K81.0
[2022-04-30 07:18] LABS: Basophils # (auto) 0.02 K/uL (0-0.2); Basophils % (auto) 0.3 %; Eosinophils # (auto) 0.18 K/uL (0-0.50); Eosinophils % (auto) 2.7 %; Hematocrit (blood only) 35.2 % (34.1-44.9); Immature Granulocytes # (auto) 0.02 K/uL (0.00-0.02); Immature Granulocytes % (auto) 0.3 %; Lymphocytes # (auto) 3.07 K/uL (1.2-3.4); Lymphocytes % (auto) 46.4 %; Mean Corpuscular Hgb Conc 34.1 g/dL (32.0-36.0); Mean Corpuscular Volume 96.7 fL (80.0-100.0); Mean Platelet Volume 9.7 fL (9.4-12.3); Monocytes # (auto) 0.45 K/uL (0.24-0.82); Monocytes % (auto) 6.8 %; Neutrophils # (auto) 2.88 K/uL (1.4-6.5); Neutrophils % (auto) 43.5 %; Platelet Count 241 K/uL (130-400); RDW Standard Deviation 45.6 fL (36.4-46.3); Red Blood Count 3.64 M/uL (3.93-5.22); White Blood Count 6.62 K/ul (4.8-10.8)
[2022-04-30 07:41] LABS: Albumin Globulin Ratio 1.5 (0.9-2); Albumin Level 3.5 gm/dl (3.4-5.0); BUN Creatinine Ratio 8.4 (10-20); Bilirubin,Total 0.7 mg/dl (0.2-1.0); Calcium 8.7 mg/dl (8.5-10.1); Creatinine Clr Calc Pharmacy 75.2 ml/min; Est GFR (African American) 80.9 ml/min; Est GFR (Non-African American) 69.8 ml/min; Globulin 2.4 gm/dl (2.5-4.0); Magnesium 1.7 mg/dl (1.7-2.4); Potassium 3.1 mmol/L (3.5-5.1); Total Protein 5.9 gm/dl (6.0-8.3)
[2022-04-30 07:53] VITALS: PULSE 70; TEMP 98.4
[2022-04-30] MEDS: TOPIRAMATE 100 MG TAB PO SCH (09:33)
[2022-04-30] MEDS: PANTOprazole 40 MG TAB PO SCH (09:33)
[2022-04-30] MEDS: DOCUSATE SODIUM/SENNA 50/8.6MG TAB PO SCH (09:33)
[2022-04-30] MEDS: busPIRone 15 MG TAB PO SCH ×2 (09:33→14:02)
[2022-04-30] MEDS ORDERED: POTASSIUM CHLORIDE CRTAB 20 MEQ TABCR PO STA (09:47)
[2022-04-30] MEDS: MAGNESIUM SULFATE / D5W 1 GM/100 ML BAG IV SCH ×2 (10:15→11:58)
--- NOTE | 2022-04-30 13:16 | Discharge Summary ---
Date of Service April 30, 2022 Admission HPI Per Admitting Provider 51-year-old woman presents with 1 day history of severe right upper quadrant abdominal pain, nausea and vomiting. She was found to have gallstones, acute cholecystitis, choledocholithiasis. She denies fevers and chills. She denies this happening in the past. Bilirubin 3.1. She is scheduled for ERCP. We are asked to consult for possible laparoscopic cholecystectomy at the time of ERCP. Principal Diagnosis Acute cholecystitis, choledocholithiasis Postoperative delirium Urinary retention Chronic constipation Discharge Exam Constitutional WD/WN, vitals as above Eyes + anicteric sclerae, PERRL and EOM intact bilaterally; no nystagmus Neck trachea midline, no thyromegaly Respiratory normal respiratory effort, lungs clear to auscultation Cardiovascular RRR, no murmur, no edema Chest (Breasts) Chest: normal inspection of chest Gastrointestinal (Abdomen) Inspection/Auscultation: normal bowel sounds; + abdomen abnormal to inspection (Dermabond over surgical wounds on abdomen) and abdomen not distended Percussion/Palpation: + abdomen tender (around incision sites, soft) and abdomen soft; no guarding Musculoskeletal Extremities: extremities normal to inspection; no cyanosis and no clubbing Skin no rashes, warm and dry Neurologic no focal motor deficits Speech / Cognition: normal speech Motor/Sensory: no tremor Psychiatric Orientation: alert, oriented x 3 and cooperative Genitourinary Joy catheter in place draining clear yellow urine Lymphatic no lymphedema Discharge Data Allergies Allergy/AdvReac Type Severity Reaction Status Date / Time venlafaxine Allergy Severe SOB Verified 04/27/22 19:10 adhesive AdvReac Mild CAUSES RASH Verified 04/27/22 19:10 Consultations 04/27/22 18:28 ED Decision to Admit Stat 04/27/22 23:00 Consult Gastroenterology Routine Consult General Surgery Routine Procedures Performed Operation Date: 04/28/22 07:00 Actual Procedures p Endoscopic Retrograde Cholangiopancreatogram - DO michele Rutledge Laparoscopic Cholecystectomy(Not Applicable) - Sundar Ibarra MD Operation Date: 04/29/22 09:40 <No data on this case meets the specified criteria> Ordered Studies 04/27/22 16:50 CT abd pelvis IV con only Stat 04/27/22 18:44 MR MRCP Routine 08/25/22 FL ERCP biliary ductal Routine 04/29/22 02:05 CT head/brain wo con Urgent Hospital Course (1) Choledocholithiasis with acute cholecystitis: P/w RUQ pain in setting of dilatation of CBD and elevated LFTs. Lipase WNL Was admitted and started on IV Zofran, kept n.p.o. Now status post ERCP with removal of stones, sphincterotomy, and placement of stents in the CBD and pancreatic duct on 04/28 followed by laparoscopic saud cystectomy on 04/28 Had excessive drowsiness after anesthesia/postoperative delirium-, held home baclofen and Ambien, avoided IV opioids, and had significant improvement by the next day back to her baseline. Her mother reported that she had significant personality changes since starting on Chantix and this was discontinued on discharge LFTs were trending almost back to normal prior to discharge -Received IV Zosyn (monitor for watery diarrhea given history of c. diff) and then converted to po Augmentin on discharge to complete total 7 days tx -Appreciate GI and surgery consultations -Needs to return for ERCP and removal of biliary stents in [address] Call of [facility]-apparently there may be some insurance issue at this point patient will call her insurance company -Tolerating regular diet at the time of discharge -No evidence of post ERCP pancreatitis -Can take oxycodone or Tylenol as needed for pain after discharge -Avoid NSAIDs and aspirin as per GI x 5 days through 05/03 -Follow LFTs as an outpatient -Follow-up with general surgery as directed after discharge (2) Postoperative delirium: As above, secondary to anesthesia, multiple ACID LOADER depressing medications that she takes on a chronic basis Resolved -Recommend discontinuing Chantix upon discharge as mother reports significant personality changes since starting this Follow-up with PCP Okay to resume usual medications otherwise (3) Urinary retention: Was found to be retaining greater than 1 L of urine on postop day #1 Had utilized straight catheterization of the bladder on several occasions and Joy catheter was then placed She has a history of severe chronic constipation, sometimes not moving her bowels for 1 week at a time and this is most likely secondary to side effects of numerous medications she is not -Encouraged aggressive bowel regimen upon discharge to get bowels moving once a day -Keep Joy catheter in place and recommended follow-up with urology within 1 week for trial of void-she will call for appointment (4) Chronic constipation: As above (5) GERD (gastroesophageal reflux disease): Continue PPI (6) Back pain: Continue her usual gabapentin and baclofen for back spasms (7) Migraines: Migraine prophylaxis - propranolol + Emgality + Tompax - continue these Eletriptan PRN for migraine No acute issues (8) Type 2 diabetes mellitus: Suspect historical diagnosis. Reports intentional 70lb weight loss. HbA1C 6.0 in March, no need to repeat this as within the last 3 months. On no outpatient medication for this. (9) Depression with anxiety: Continue her usual Ziprasidone, BuSpar Plan VTE Prophylaxis -SCDs Disposition -stable for discharge to home Total Time Total Time Spent Total Time Spent (In Minutes): 45 min Total Time Includes: Examination of the Patient, Discharge Planning, Medication Reconciliation and Communication With Other Providers (Surgery, GI) Discharge Plan Discharge Items Patient Disposition: Home - Self-Care Reason For Visit: ACUTE CHOLECYSTITIS Discharge Diagnosis: Acute cholecystitis and choledocholithiasis Urinary retention Activity: As commented below Non-emergency contact: Primary Care Provider, Surgeon, Barrel Loader And Cleaner and Urologist Call non-emergency contact if: you have any medication questions, your symptoms worsen, your pain is not controlled, you have a fever, your wound has increased redness and your wound has increased drainage Follow-up/Referrals: Sundar Ibarra MD [Physician] - 05/11/22 11:15 am (Please call to schedule a follow up with your Surgeon as directed.) Carmen Myers PA-C [Physician Lap Maker] - 05/11/22 12:00 pm Sachi Thompson PA-C [Physician Lap Maker] - 05/12/22 1:30 pm () Jigna Call DO [Physician] - (Please call your insurance company and see if they will approve for you to have Dr. Call remove your biliary stents in 6 weeks. Call office [phone] and schedule appointment to remove stents, after speaking to insurance company.) Berto Grijalva [Primary Care Provider] - (Follow up within 1-2 weeks.) Dipak Cisse MD [Physician] - 05/05/22 1:30 pm (Please call to schedule an appointment for a trial of void to remove your bladder catheter within 1 week.) Diet: Carb Consistent or DM2 Addtl Attending Provider Instructions: Please finish out a course of antibiotics with Augmentin twice a day for 4 more days for your gallbladder infection. You will need to have your biliary stents removed in about 6 weeks by a Barrel Loader And Cleaner. You should NOT take any NSAIDs (ibuprofen, Motrin, Advil, Aleve, etc.) or aspirin for at least 3 more days due to the stent placement procedure to reduce your risk of bleeding. You were having issues with retention of your urine which required placement of a Joy catheter. This should stay in place until you are seen by a Urologist in the office. It is very important that you relieve your constipation by taking daily laxatives. Constipation can make you retain urine. Addtl Haul Truck Driver Provider Instructions: Post-Surgical ~Discharge Instructions Activity Recommendations: - lifting limitation: (10 pounds for 2 weeks), - exercise/sex/sports limit: (nonstrenuous for 2 weeks), - driving or machine use limit: (none for 1 week, until pain free , and no longer taking narcotic pain medication), - Shower/bathe limit: (may shower , do not submerge incisions underwater for 2 weeks) Diet: - Resume previous diet SPECIAL CARE INSTRUCTIONS: - May shower.. Let water run over area and pat dry. - Leave surgical glue intact, will fall off on its own. - Call the surgeon's office with any questions or concerns - - (ex. temperature higher than 101 degrees F, excessive bleeding or pain). MEDICATIONS: - Resume previous medications unless instructed otherwise by your surgeon. - Percocet 1 every 4 hours, as needed for pain FOLLOW UP VISIT: - If not already scheduled, please call the office to schedule a two week follow-up appointment. Office number Pending Studies at Discharge: No Stand-Alone Forms: My Promodity, Smoking Cessation Medications and DC Order Prescriptions: New acetaminophen 325 mg Tablet 650 mg PO Q4H PRN (Reason: mild-moderate pain) Qty: 30 0RF Rx Instructions: OTC oxycodone 5 mg Tablet 5 mg PO Q4H PRN (Reason: moderate-severe pain) Qty: 10 0RF polyethylene glycol 3350 [Miralax] 17 gram/dose powder 17 g PO DAILY Qty: 119 0RF amoxicillin-pot clavulanate 875-125 mg tablet 1 tab PO BID Qty: 8 0RF Continued cyanocobalamin (vitamin B-12) 1,000 mcg/mL solution 1,000 mcg IM MONTHLY 30 Days Qty: 1 5RF Rx Instructions: include needle/syringe omeprazole 40 mg capsule,delayed release(DR/EC) 40 mg PO QAM (DME) BD Insulin Syringe 1 mL 25 x 1" syringe See Rx Instructions .Route Qty: 100 0RF Rx Instructions: use one per month As directed topiramate 200 mg tablet 200 mg PO BID Qty: 60 5RF ondansetron HCl 4 mg tablet 4 mg PO DAILY PRN (Reason: nausea and vomiting) Qty: 30 5RF Emgality Pen 120 mg/mL pen injector 120 mg subcut MONTHLY 30 Days Qty: 1 5RF eletriptan [Relpax] 40 mg tablet 40 mg PO .COMPLEX PRN (Reason: migraine headache) Qty: 9 5RF Rx Instructions: take 1 tab at onset of headache, may repeat in 2hr prn, limit 2 days/week zolpidem 10 mg tablet 10 mg PO HS gabapentin 300 mg capsule 900 mg PO HS ziprasidone HCl 80 mg capsule 80 mg PO HS buspirone 15 mg tablet 15 mg PO TID baclofen 20 mg tablet 40 mg PO HS Rx Instructions: 2 tablet dose propranolol 120 mg capsule,extended release 24 hr 120 mg PO HS ziprasidone HCl 40 mg capsule 40 mg PO QAM desvenlafaxine succinate 50 mg tablet extended release 24 hr 50 mg PO DAILY desvenlafaxine succinate 100 mg tablet extended release 24 hr 100 mg PO DAILY Discontinued varenicline [Chantix] 1 mg Tablet 1 mg PO BID Discharge Orders: Discharge Order (Routine); Ordered 04/30/22 Ordered By: Julia Mckeon Admission Data Admit Date/Time: 04/27/22 18:49 Attending Provider: Julia Mckeon Admit Provider: Marbin Wilhelm Primary Care Provider: Berto Grijalva Other Providers: Darion Green ; Sundar Ibarra Other Interventions: Discharge Summary Assessment (RN) Last Done: 04/30/22 13:29 Coding Level of Care Code D/C DAY MANAGEMENT >30 MINS Diagnoses Choledocholithiasis with acute cholecystitis K80.42 Postoperative delirium F05 Urinary retention R33.9 Chronic constipation K59.09 GERD (gastroesophageal reflux disease) K21.9 Back pain M54.9 Migraines G43.009 Intractability: not intractable Migraine type: without aura Status migrainosus presence: without status migrainosus Type 2 diabetes mellitus E11.9 Depression with anxiety F41.8
[2022-04-30 13:30] VITALS: BP 145/85; O2SAT 94
== END 2022-04-30 16:11 | disposition home or self-care (01) ==
LOC: ED 14:09 → 3W 18:49 → INTOOBSV 18:49 → SUATTDRO 18:49 → 3W 22:14
DX: K80.42 Calculus of bile duct with acute cholecystitis without obstruction; Z88.8 Allergy status to other drugs, medicaments and biological substances; Z79.4 Long term (current) use of insulin; Z87.891 Personal history of nicotine dependence; Z79.899 Other long term (current) drug therapy; K21.9 Gastro-esophageal reflux disease without esophagitis; E11.9 Type 2 diabetes mellitus without complications; R07.9 Chest pain, unspecified